=== PATIENT | male | born 1945 | race Caucasian/White ===

== ENCOUNTER → 2018-06-02 13:08 | Outpatient (BNVA) | payer MEDICARE, SELFPAY | PROVIDERS: PCP Family Medicine; Visit Provider Internal Medicine Interventional Cardiology | DX: I25.810 Atherosclerosis of coronary artery bypass graft(s) without angina pectoris (principal); I48.92 Unspecified atrial flutter; R00.1 Bradycardia, unspecified; G47.30 Sleep apnea, unspecified; I42.9 Cardiomyopathy, unspecified; I49.3 Ventricular premature depolarization; F17.210 Nicotine dependence, cigarettes, uncomplicated | CPT/HCPCS: 99213 ==

== ENCOUNTER 2018-10-27 08:23 | Outpatient (CLI) | payer MEDICARE, SELFPAY | END 2018-10-27 08:43 | PROVIDERS: PCP Family Medicine; Visit Provider Internal Medicine Interventional Cardiology | DX: I25.810 Atherosclerosis of coronary artery bypass graft(s) without angina pectoris (principal); I48.92 Unspecified atrial flutter; R00.1 Bradycardia, unspecified; I42.9 Cardiomyopathy, unspecified; I49.3 Ventricular premature depolarization; G47.30 Sleep apnea, unspecified | CPT/HCPCS: 99214; 93005; 93010; 99213 ==

== ENCOUNTER 2018-12-10 10:48 | Outpatient (CLI) | payer MEDICARE, SELFPAY ==
--- NOTE | 2018-12-10 11:08 | DI.RAD_ITS ---
SYMPTOMS/DIAGNOSIS: CHRONIC JESSE RIB PAIN, PLEURODYNIA, R07.81 PA AND LATERAL CHEST AND BILATERAL RIBS: A median sternotomy is demonstrated in this patient who is status post CABG. The heart is not enlarged. The lungs are free of infiltrate. There is no pleural effusion. The hilar structures are intact. Atherosclerotic changes involving the aorta are noted. A right and left rib series was obtained. No rib abnormality is apparent.
[2018-12-10 13:19] LABS: CREATININE 1.06 mg/dL (0.70-1.30); Potassium 5.1 mmol/L (3.5-5.1); TSH (W/Ref FT4) 3.16 uIU/mL (0.358-3.74)
== END 2018-12-10 11:08 ==
PROVIDERS: PCP Family Medicine; Visit Provider Family Medicine
DX: R07.81 Pleurodynia (principal); Z95.1 Presence of aortocoronary bypass graft; I10 Essential (primary) hypertension; R79.89 Other specified abnormal findings of blood chemistry
CPT/HCPCS: 36415; 71046; 71110; 82565; 84132; 84443

== ENCOUNTER 2019-05-11 08:12 | Outpatient (CLI) | payer MEDICARE, SELFPAY | END 2019-05-11 08:32 | PROVIDERS: PCP Family Medicine; Visit Provider Internal Medicine Interventional Cardiology | DX: I25.10 Atherosclerotic heart disease of native coronary artery without angina pectoris (principal); I48.92 Unspecified atrial flutter; F17.210 Nicotine dependence, cigarettes, uncomplicated; R00.1 Bradycardia, unspecified; G47.30 Sleep apnea, unspecified; I42.9 Cardiomyopathy, unspecified | CPT/HCPCS: 93005; 93010; 99213 ==

== ENCOUNTER 2019-07-01 08:41 | Emergency (ER) | payer MEDICARE, SELFPAY ==
[2019-07-01 08:46] VITALS: BP 107/94; PULSE 72; RESP 14; TEMP 36.2; O2SAT 95
--- NOTE | 2019-07-01 09:08 | ED.GENADUL_ITS ---
Discharge Plan Disposition Patient Disposition: HOME Condition: Good Discharge Details Chief Complaint: Urinary Clinical Impression: Acute UTI, Hematuria Primary Care Provider: Real Horn ED Provider: Maritza Smiht Home Meds and New Rx's Prescriptions: New cephalexin [Keflex] 500 mg capsule 500 mg PO QID Qty: 28 RF: 0 No Action aspirin 81 mg tablet,delayed release (DR/EC) 81 mg PO DAILY RF: 0 benzonatate [Tessalon Perles] 100 mg capsule 100 mg PO TID PRN (Reason: cough) Qty: 30 RF: 0 rosuvastatin [Crestor] 40 mg tablet 40 mg PO QPM Qty: 90 RF: 4 finasteride 5 mg tablet 5 mg PO DAILY Qty: 90 RF: 3 Eliquis 5 mg tablet 5 mg PO bid Qty: 180 RF: 3 tamsulosin 0.4 mg capsule 0.4 mg PO DAILY Qty: 90 RF: 3 bisoprolol fumarate 5 mg tablet 1.25 mg PO DAILY Qty: 24 RF: 3 lisinopril 10 MG tablet 10 mg PO DAILY Qty: 90 RF: 4 coenzyme Q10 [Co Q-10] 100 MG capsule 100 mg PO DAILY RF: 0 Discharge Instructions Instructions: Urinary Tract Infection in Men (ED), Hematuria (ED) Additional Instructions: Drink plenty of fluids. Use antibiotic as prescribed. Continue your current daily medications. Observe for any increase in or persistence of blood in your urine. Follow-up promptly with your primary care doctor as well as with urology as discussed. Return to the emergency room for any weakness, fatigue, increased in blood in your urine or any association with abdominal or back pain as discussed. Medical Decision Making 73-year-old patient presents for painless hematuria. Patient reports hematuria has improved since onset at 6 AM. No associated blood clots in the urine. Feeling well otherwise. No associated systemic symptoms. No abdominal pain on exam. Patient's urinalysis does reveal elevated white blood cells as well as trace leukocyte esterase and blood. Concern for possible UTI. I have explained to this patient the painless hematuria at his age will require additional outpatient follow-up however at this time he feels comfortable with discharge home with a course of antibiotics and close follow-up with urology and his PCP. PCP was unable to see the patient this morning which is why came to the emerg ency room. Vital signs are stable. Patient would prefer outpatient follow-up at this time which I agree with. He is well-appearing. The patient was stable and requested discharge. Prior to discharge, my usual and customary return precautions were reviewed with the patient - this included follow-up instructions and reasons to return to the Emergency Department if conditions worsens, does not improve as expected, or other new concerns arise. HPI General Date/Time Provider Initiated Documentation: 07/01/19 08:46 . HPI Narrative: Is a pleasant 73-year-old patient who presents to the emergency room this morning for an episode of hematuria at approximately 6:00. Patient reports he denied any abdominal or back pain associated. Reports he went to the bathroom noted blood-tinged urine. Tried drinking some water as he does not routinely drink water and reports his urine has somewhat cleared although has had more frequent urination since drinking water. Again patient denies abdominal or back pain. No associated fever, chills, nausea, vomiting. He has been eating and drinking without difficulty. No changes in bowel movements. No history of hematuria in the past. Patient does take a blood thinner for cardiac reasons. No other recent sites of bleeding Related Data Home Medications Medication Instructions Recorded Confirmed coenzyme Q10 [Co Q-10] 100 mg PO DAILY 01/18/15 07/01/19 lisinopril 10 mg PO DAILY #90 01/18/15 07/01/19 rosuvastatin 40 mg tablet 40 mg PO QPM #90 05/13/18 07/01/19 aspirin 81 mg tablet,delayed 81 mg PO DAILY 12/10/18 07/01/19 release finasteride 5 mg tablet 5 mg PO DAILY #90 tab-cap 12/18/18 07/01/19 apixaban 5 mg tablet 5 mg PO bid #180 tab 01/13/19 07/01/19 tamsulosin 0.4 mg capsule 0.4 mg PO DAILY #90 cap 03/12/19 07/01/19 bisoprolol fumarate 5 mg tablet 1.25 mg PO DAILY #24 tab-cap 04/01/19 07/01/19 benzonatate 100 mg capsule 100 mg PO TID PRN #30 cap 06/04/19 07/01/19 cephalexin [Keflex] 500 mg PO QID #28 cap 07/01/19 Previous Rx's Medication Instructions Recorded rosuvastatin 40 mg tablet 40 mg PO QPM #90 05/13/18 finasteride 5 mg tablet 5 mg PO DAILY #90 tab-cap 12/18/18 apixaban 5 mg tablet 5 mg PO bid #180 tab 01/13/19 tamsulosin 0.4 mg capsule 0.4 mg PO DAILY #90 cap 03/12/19 bisoprolol fumarate 5 mg tablet 1.25 mg PO DAILY #24 tab-cap 04/01/19 benzonatate 100 mg capsule 100 mg PO TID PRN #30 cap 06/04/19 cephalexin [Keflex] 500 mg PO QID #28 cap 07/01/19 Allergies Allergy/AdvReac Type Severity Reaction Status Date / Time codeine AdvReac Intermediate Headache Unverified 07/01/19 08:50 ezetimibe [From Zetia] AdvReac Intermediate myalgia Unverified 07/01/19 08:50 General Stated Complaint: Urinary EDWAR: 3 Review of Systems All systems reviewed & are unremarkable except as noted in HPI and below Constitutional Constitutional: Denies chills, Denies fatigue, Denies fever(s), Denies headache(s) and Denies malaise ENT Ears, Nose, Mouth, and Throat: Denies headache(s) Gastrointestinal Gastrointestinal: Denies abdominal pain, Denies change in stool character, Denies constipation, Denies cramping, Denies diarrhea, Denies nausea and Denies vomiting Genitourinary Genitourinary: Reports hematuria, Denies difficulty urinating, Denies dysuria, Denies urinary hesitancy and Denies urinary urgency Musculoskeletal Musculoskeletal: Denies back pain Neurologic Neurologic: Denies headache(s) Endocrine Endocrine: Denies fatigue [facility] Medical History Insomnia (Acute) Surgical History Appendectomy Circumcision (10/27/97) Coronary Artery Bypass Gaft (CABG) (08/20/89) Extraction of cataract 12/15/13-LEFT Repair of inguinal hernia (05/06/08) B/L Stent placement Family History Mother Personal history of malignant neoplasm Father Stroke Sister Personal history of malignant neoplasm Brother No problems noted. Social History Smoking/Tobacco Use Status: Current every day Tobacco Type: cigarettes Smoking packs per day: 2 Smoking cigarettes per day: 40.0 Years smoked: 45 Smoking pack- years: 90.00 Quit status: not considering quitting Counseling given: patient declined Alcohol Intake: never Drug use: Never Substance use type: does not use Do you feel safe at home: Yes Do you feel safe in your relationship?: Yes Exam Narrative Exam Narrative: CONST: Healthy appearing patient, in no acute distress. Well hydrated. Alert and alert. NECK: Normal visual inspection. FROM. No lymphadenopathy. Trachea midline. No Midline tenderness. CHEST: Normal insepection of the chest. RESP: Normal respiratory effort. Speaking full sentences. No cough. No wheezing. No retractions. Clear to auscaltation. Breath sound equal and present bilaterally. CARDIO: No JVD. Normal PMI. Regular Rate. Regular Rhythm. Normal peripheral pulses. GI: Normal inspection of abdomen. No distension. Soft. Nontender. Bowel sounds present in all 4 quadrants. No rebound. No gaurding. Back: No CVA tenderness bilaterally. Course Vital Signs Vital signs: Vital Signs Temperature 36.2 C L 07/01/19 08:46 Pulse 72 07/01/19 08:46 Respiratory Rate 14 07/01/19 08:46 Blood Pressure 107/94 H 07/01/19 08:46 Pulse Oximetry 95 07/01/19 08:46 Temperature 36.2 C L 07/01/19 08:46 Temperature Source Temporal Artery Scan 07/01/19 08:46 Pulse 72 07/01/19 08:46 Respiratory Rate 14 07/01/19 08:46 Respiratory Effort Non-Labored 07/01/19 08:48 Blood Pressure 107/94 H 07/01/19 08:46 Blood Pressure Position Sitting 07/01/19 08:46 Pulse Oximetry 95 07/01/19 08:46 Oxygen Delivery Method Room Air 07/01/19 08:46 Oxygen Flow Rate 0 07/01/19 08:46 Pain Level 0 07/01/19 08:49
[2019-07-01 09:22] LABS: Bilirubin Negative (Negative); Blood Large (Negative); Clarity Sl Cloudy (Clear); Glucose Negative (Negative); Ketones Negative (Negative); Leukocyte Esterase Small (Negative); Nitrite Negative (Negative); Specific Gravity <= 1.005 (1.005-1.025); Urobilinogen 0.2 EU/dL (Up TO 0.2); pH 5.5 (5-8)
[2019-07-01 09:37] LABS: Bacteria Negative HPF (Negative); C & S Indicated? Yes; Casts Negative LPF (Negative); Crystals Negative HPF (Negative); Epithelial Cells Rare HPF (Negative); Mucus Negative (Negative); WBC >50 HPF (0-5)
[2019-07-01 10:32] LABS: Abs Immature Grans 0.01 k/cumm (0.0-0.09); Absolute Basophil Count 0.02 k/cumm (0.0-0.2); Absolute Eosinophil Count 0.06 k/cumm (0.0-0.7); Absolute Lymphocyte Count 1.58 k/cumm (1.2-3.4); Absolute Monocyte Count 0.78 k/cumm (0.11-0.7); Absolute Neutrophil Count 7.09 k/cumm (1.2-6.7); Basophils % 0.2; Eosinophils % 0.6; HCT 42.2 % (40.0-50.0); HGB 14.4 g/dL (13.5-17.5); Immature Grans % 0.1; Lymphocytes % 16.6; Mean Corp. HGB Concentration 34.1 g/dL (32.0-36.0); Mean Corpuscular Hemoglobin 34.5 pg (27.0-33.0); Mean Corpuscular Volume 101.2 fL (80-95); Mean Platelet Volume 9.1 fL (8.0-11.0); Monocytes % 8.2; Neutrophils % 74.3; Platelet Count 190 x1000/uL (130-400); RBC 4.17 m/cumm (4.50-6.00); RBC Distribution Width 14.1 % (11.8-14.1); White Blood Cell Count 9.54 k/cumm (4.4-10.8)
[2019-07-01 10:42] LABS: ALT 16 U/L (16-63); AST 15 U/L (15-37); Albumin 3.5 g/dL (3.4-5.0); Alkaline Phosphatase 59 U/L (46-116); Anion Gap 7.9 mmol/L (3-11); BUN 20 mg/dL (7-18); Bilirubin, Total 0.5 mg/dL (0.2-1.0); CO2 27.1 mmol/L (21.0-32.0); CREATININE 1.24 mg/dL (0.70-1.30); Chloride 104 mmol/L (98-107); Estimated GFR 57.14 (mL/min/1.73m2); Glucose 87 mg/dL (70-100); Potassium 4.5 mmol/L (3.5-5.1); Sodium 139 mmol/L (136-145); Total Protein 7.6 g/dL (6.4-8.2)
[2019-07-01 10:56] LABS: INR 1.2 (0.9-1.1); PTT Activated 36.1 sec (21.0-31.4); Prothrombin Time 11.6 sec (9.3-11.0)
[2019-07-01 11:21] VITALS: BP 119/66; PULSE 54; O2SAT 94
--- NOTE | 2019-07-01 14:26 | NUR.NOTE ---
Referral faxed to specialty clinic, Urology.Nursing Note:
== END 2019-07-01 11:30 | disposition home or self-care (01) ==
PROVIDERS: Emergency Provider Physician Assistant; PCP Family Medicine
DX: N39.0 Urinary tract infection, site not specified (principal); R31.9 Hematuria, unspecified; Z95.1 Presence of aortocoronary bypass graft
CPT/HCPCS: 36415; 80053; 99283; 81003; 81015; 85025; 85610; 85730; 87086

== ENCOUNTER 2019-07-08 00:40 | Outpatient (CLI) | payer MEDICARE, SELFPAY ==
--- NOTE | 2019-07-08 07:59 | DI.CT_ITS ---
EXAM: CT ABDOMEN AND PELVIS WO/W CLINICAL HISTORY: HEMATURIA,R31.9 TECHNIQUE: Images were performed from the lung bases through the ischial tuberosities before and aft er IV contrast. Delayed images were performed at 7 minutes. COMPARISON: CHEST FOR PULMONARY EMBOLUS from 11/26/2016 RENAL ULTRASOUND(P) from 12/03/2016 CHEST FOR PULMONARY EMBOLUS from 09/13/2017 FINDINGS: The noncontrast images show no evidence of urinary tract calculi. Renal arterial calcifications are seen. The aorta shows calcification and irregularity with mild dilatation in the infrarenal region, which is 2.6 cm. The aorta appears narrow distally. The proximal iliac arteries also show severe na rrowing. After IV contrast, there are symmetric bilateral nephrograms. A 2.5 centimeter cyst is see n at the upper pole of the left kidney. A 2.2 centimeter cyst is seen posteriorly in the upper to mi d left kidney. No renal masses are seen. The prostate is enlarged and impresses on the base of the bladder. Prostate measures 4.3 cm transverse x 4.1 cm cephalocaudad x 3.5 cm AP. There is mild diff use bladder wall thickening. The 2-[id number] images show symmetric pyelograms. No collecting s ystem filling defects are seen. A small low-density lesion is seen in the anterior left lobe of the liver, which appears unchanged wh en compared with previous CT of the of the chest. The gallbladder, spleen, adrenals and pancreas are unremarkable. There is prominent sigmoid diverticulosis but no evidence of diverticulitis. Increas ed stool is seen throughout the colon. There is no small bowel distension. Degenerative changes are seen in the lumbar spine. IMPRESSION: Left renal cysts. No evidence of renal mass. Enlarged prostate and mild diffuse bladder wall thicke prashanth. Atherosclerotic changes of the abdominal aorta.
[2019-07-08] MEDS: Omnipaque 350 MG/ML 100 ML BTL IJ (08:56)
== END 2019-07-08 01:00 ==
PROVIDERS: PCP Family Medicine; Visit Provider Nurse Practitioner
DX: R31.9 Hematuria, unspecified (principal); N28.1 Cyst of kidney, acquired; N40.0 Benign prostatic hyperplasia without lower urinary tract symptoms; N32.89 Other specified disorders of bladder
CPT/HCPCS: 74178; J3490

== ENCOUNTER → 2019-07-09 12:25 | Outpatient (BNVA) | payer MEDICARE, SELFPAY | PROVIDERS: PCP Family Medicine; Referring Provider Family Medicine; Visit Provider Nurse Practitioner Gerontology | DX: R69 Illness, unspecified (principal) ==

== ENCOUNTER 2019-07-09 13:57 | Outpatient (CLI) | payer MEDICARE, SELFPAY ==
[2019-07-10 11:57] LABS: PSA, Screening 1.6 ng/mL (0.0-6.5)
== END 2019-07-09 14:17 ==
PROVIDERS: PCP Family Medicine; Visit Provider Nurse Practitioner Gerontology
DX: N40.1 Benign prostatic hyperplasia with lower urinary tract symptoms (principal); R35.1 Nocturia; Z12.5 Encounter for screening for malignant neoplasm of prostate
CPT/HCPCS: 36415; 81003; 84153; 99204; 99215

== ENCOUNTER 2019-08-03 09:41 | Day surgery (SDC) | payer MEDICARE, SELFPAY ==
--- NOTE | 2019-07-31 08:38 | DSU.FORM ---
07/31/19 Per patient he was called by office and told to hold Eliquis on 08/02 19 and resume the night of procedure.
--- NOTE | 2019-08-03 09:44 | HPE_ITS ---
Date of service: 08/03/19 Time of Service: 09:44 Assessment and Plan Assessment and plan (1) Hematuria: Status: Acute Assessment and plan: We will move ahead with cystoscopy to complete his hematuria workup. Given his history of urethral stricture/meatal stenosis, we will be prepared to dilate the urethra if necessary. History of Present Illness Narrative: Teo is a 73-year-old male referred to urology for painless gross hematuria by the emergency room. Patient was seen in the emergency room approximately 1 week ago and noted to have 10-20 RBC. Patient states he noted gross hematuria that resolved after he push fluids. He did not have clots or any retention. Patient does have an extensive urology history for an urethral stricture. He has previously seen [facility], and here by Dr. Espana. Patient notes that his urinary stream still will have a dribble and split stream since any of his urethral dilations. He does not want to go to the process again. Currently his LUTS include frequency, urgency, nocturia, and dribbling. He questions if he has recently lost weight. He denies long bone pain he denies abnormal bleeding or bruising. He is an extensive smoker with a history of approximately 40 years at 2 packs/day. PMH Hematuria BPH Insomnia Tobacco abuser Tubular adenoma Systolic heart failure Sinus bradycardia Urethral stricture Coronary atherosclerosis SX Appendectomy Circumcision Urethral meatus stricture dilation CABG Cataracts Hernia Social Current smoker Denies alcohol Allergies Reviewed elsewhere in the chart Medications Reviewed elsewhere in the chart Family Hx His half brother has prostate cancer Review of Systems Const: Reports weight loss; Denies chills, fatigue or fever(s) Card: Denies chest pain or dyspnea Resp: Denies dyspnea GI: Denies abdominal pain, constipation or diarrhea : Reports hematuria, urinary frequency, urinary hesitancy and urinary urgency; Denies dysuria, flank pain, nocturia or urinary incontinence Endo: Denies fatigue Exam Const Orientation: alert, awake and oriented x3 Other: VS reviewed that were done by nurse Eyes Sclera: sclerae normal Resp Effort & Inspection: normal respiratory effort GI Inspection: normal to inspection and non-distended Palpation: soft and nontender Rectal Exam: prostate abnormal enlarged; no nodules and nontender Extrem General: full [facility] Social History Smoking/Tobacco Use Status: Current every day Tobacco Type: cigarettes Smoking packs per day: 2 Smoking cigarettes per day: 40.0 Years smoked: 45 Smoking pack- years: 90.00 Quit status: not considering quitting Counseling given: patient declined Alcohol Intake: current Alcohol Intake frequency: a few times a month Alcohol type: beer Drug use: Never Substance use type: does not use Do you feel safe at home: Yes Do you feel safe in your relationship?: Yes Meds Home Medications and Allergies Home Medications Medication Instructions Recorded Confirmed Type coenzyme Q10 [Co Q-10] 100 mg PO DAILY 01/18/15 07/30/19 History lisinopril 10 mg PO DAILY #90 01/18/15 07/30/19 History rosuvastatin 40 mg tablet 40 mg PO QPM #90 05/13/18 07/30/19 Rx aspirin 81 mg tablet,delayed 81 mg PO DAILY 12/10/18 07/30/19 History release apixaban 5 mg tablet 5 mg PO bid #180 tab 01/13/19 07/30/19 Rx bisoprolol fumarate 5 mg tablet 1.25 mg PO DAILY #24 tab-cap 04/01/19 07/30/19 Rx cephalexin [Keflex] 500 mg PO QID #28 cap 07/01/19 07/03/19 Rx finasteride 5 mg PO HS 07/31/19 07/31/19 History tamsulosin 0.8 mg PO HS 07/31/19 07/31/19 History Allergies Allergy/AdvReac Type Severity Reaction Status Date / Time codeine AdvReac Intermediate Headache Unverified 07/30/19 17:28 ezetimibe [From Zetia] AdvReac Intermediate myalgia Unverified 07/30/19 17:28 Exam Narrative Exam Narrative: His lungs are clear Cardiac exam shows a regular rate and rhythm I reviewed his CT urogram on the PACS system. He has simple renal cysts and vascular calcifications, but no sign of solid renal mass or urolithiasis.
[2019-08-03 10:16] VITALS: BP 110/63; PULSE 57; RESP 17; TEMP 36.5; O2SAT 96
[2019-08-03] MEDS: Lactated Ringers 1,000 ML 80 ML IV (11:17)
[2019-08-03] MEDS: ceFAZolin 1 GM/50 ML BAG IVPB (11:21)
[2019-08-03] MEDS: Lidocaine 2% Jelly 6 ML SYR (11:33)
--- NOTE | 2019-08-03 11:42 | W.PM.DSUDISC ---
Discharge Plan Disposition Patient Disposition: HOME Condition: Stable Discharge Details Attending Provider: Bryce Espana Primary Care Provider: Real Horn Home Meds and New Rx's Prescriptions: No Action aspirin 81 mg tablet,delayed release (DR/EC) 81 mg PO DAILY RF: 0 rosuvastatin [Crestor] 40 mg tablet 40 mg PO QPM Qty: 90 RF: 4 Eliquis 5 mg tablet 5 mg PO bid Qty: 180 RF: 3 bisoprolol fumarate 5 mg tablet 1.25 mg PO DAILY Qty: 24 RF: 3 lisinopril 10 MG tablet 10 mg PO DAILY Qty: 90 RF: 4 coenzyme Q10 [Co Q-10] 100 MG capsule 100 mg PO DAILY RF: 0 cephalexin [Keflex] 500 mg capsule 500 mg PO QID Qty: 28 RF: 0 tamsulosin 0.4 mg capsule 0.8 mg PO HS RF: 0 finasteride 5 mg tablet 5 mg PO HS RF: 0 Discharge Instructions Additional Instructions: Followup yearly for urinalysis Activity:: Activity as Tolerated Shower/Bathe:: 24 hours Diet:: As Tolerated Discharge Orders Discharge Orders: Discharge Order (Routine); Ordered 08/03/19 Ordered By: Bryce Espana Discharge Data Discharge Comment: Pt must void prior to discharge DS: Diagnosis Discharge Diagnosis (1) Hematuria: Status: Acute
[2019-08-03] MEDS: Phenazopyridine 200 MG TAB PO (12:25)
[2019-08-03 13:10] VITALS: BP 109/64; PULSE 49; RESP 17; TEMP 36.2; O2SAT 100
--- NOTE | 2019-08-03 14:30 | ROE_ITS ---
DATE OF PROCEDURE: August 03, 2019 PREOPERATIVE DIAGNOSIS: Gross hematuria. POSTOPERATIVE DIAGNOSIS: Same. PROCEDURE: Cystoscopy. SURGEON: Bryce Espana M.D. ANESTHESIA: Room air general anesthetic with local. COMPLICATIONS: None. FINDINGS: No evidence of bladder tumor, vascular enlarged prostate. HISTORY: This is a 73-year-old gentleman who has a history of urethral stricture disease. He's had multiple dilations in the past. He most recently experienced an episode of gross, painless hematuria. When he increased his fluid intake the hematuria resolved and has not recurred. He's been evaluated with a CT urogram which shows some simple cysts in the kidneys, but no solid jesse l masses and no stones. He presents now for a cystoscopy to complete his hematuria workup. OPERATIVE REPORT: The patient was brought to the operating room on 08/03/19. After successful induc tion of general anesthesia, he was placed in the dorsal lithotomy position. His genitalia was preppe d and draped. 2% Xylocaine jelly was instilled into the urethra to act as a local anesthetic. A 17 Yi rigid cystoscope was then passed through the urethra into the bladder. There was some re sistance met right at the urethral meatus, which is the location of his previous urethral strictures. We were able to negotiate the scope through this area and down the remainder of the ureter. The remainder of the pendulous, bulbous and membranous urethras appeared normal. The prostatic ureth ra showed increased vascularity and some lateral lobe enlargement, but no active bleeding. The bladder neck was entered and the bladder mucosa was inspected. Both ureteral orifices appeared n ormal. No blood was seen coming from either side. The bladder was mildly trabeculated with no papillary or nodular tumors present. Based on today's examination there is no evidence of bladder pathology. I would expect that his blee ding is related to his vascular prostate. He's already on maximal medical therapy with a combination of Finasteride and Tamsulosin. If his hem aturia returns, his next option may be a fulguration of the prostatic mucosa.
== END 2019-08-03 13:06 | disposition home or self-care (01) ==
PROVIDERS: PCP Family Medicine; Visit Provider Urology
PROC: 0TBB8ZZ Excision of Bladder, Via Natural or Artificial Opening Endoscopic (ICD-10-PCS; CPT 52000; principal; 2019-08-03 10:45)
DX: R31.9 Hematuria, unspecified (principal); N40.0 Benign prostatic hyperplasia without lower urinary tract symptoms; N32.89 Other specified disorders of bladder
CPT/HCPCS: 52000; NC; J0690; J2250; J3010

== ENCOUNTER → 2019-09-09 15:22 | Outpatient (BNVA) | payer MEDICARE, SELFPAY | PROVIDERS: PCP Family Medicine; Referring Provider Family Medicine; Visit Provider Nurse Practitioner Gerontology | DX: R31.9 Hematuria, unspecified (principal); N40.1 Benign prostatic hyperplasia with lower urinary tract symptoms; R35.1 Nocturia | CPT/HCPCS: 99213 ==

== ENCOUNTER 2020-01-25 02:16 | Outpatient (CLI) | payer MEDICARE, SELFPAY ==
--- NOTE | 2020-01-25 12:45 | DI.CTLCSR_ITS ---
EXAM: CT CHEST LUNG CANCER SCREEN CLINICAL HISTORY: The patient reportedly has a History of Smoking 30 pack years and presently smokes or has quit the past 15 years. TECHNIQUE: Imaging Protocol: Axial computed tomography images with coronal and sagittal reformatted images were created and reviewed COMPARISON: CT CHEST FOR PULMONARY EMBOLUS from 09/13/2017 FINDINGS: Tracheobronchial tree: Patent where visualized. Mediastinum and Dahlia: No dominant adenopathy or fluid collection. Pulmonary parenchyma: Paraseptal and centrilobular emphysema. No consolidating infiltrates. Lung Nodules: None. Pleura: No effusion or pneumothorax. Heart: The heart is not dilated. Coronary artery calcifications versus vascular stents. No significa nt pericardial effusion. Aorta: Thoracic aorta non-dilated.Atherosclerosis. Upper abdomen: Unremarkable. Bones: Within normal limits for the patient's age. Sternal wires are in place. Soft Tissues: Bilateral gynecomastia. IMPRESSION: No pulmonary nodules. Lung RADS Cat 1 - Negative: No nodules and definitely benign nodules Lung-RADS 1.0 CATEGORIES: Category 0 - Prior chest CT exam(s) being located for comparison. Category 1 - Annual screening in 12 months. No nodules or definitely benign nodules. Category 2 - Annual screening in 12 months. Benign appearance. Nodules with low likelihood of becomin g active cancer. Category 3 - 6-month follow-up. Probably benign. Short-term follow-up suggested. Nodules with low lik elihood of becoming active cancer. Category 4A - 3-month follow-up and CT/PET if >8 mm in size. Suspicious finding. Findings which requi re additional testing. Category 4B - Findings which require additional testing and tissue sampling. Suspicious finding. C Added to Any of the Above - History of prior lung cancer screening. S Added to Any of the Above - Significant unexpected other finding. RADIATION DOSE DELIVERED: 86.66mGy.cm Total DLP DATA REPOSITORY: All CT scans at this facility are submitted to the National Radiology Data Registry (NRDR) Dose Index Registry (DIR) with the [employer] (ACR). RADIATION OPTIMIZATION: All CT scans at this facility use at least one of these dose optimization te chniques: automated exposure control; mA and/or kV adjustment per patient size (includes targeted exa ms where dose is matched to clinical indication); or iterative reconstruction.
== END 2020-01-25 02:36 ==
PROVIDERS: PCP Family Medicine; Visit Provider Family Medicine
DX: Z12.2 Encounter for screening for malignant neoplasm of respiratory organs (principal); Z87.891 Personal history of nicotine dependence; J43.8 Other emphysema
CPT/HCPCS: G0297

== ENCOUNTER → 2020-09-12 12:41 | Outpatient (BNVA) | payer MEDICARE, SELFPAY | PROVIDERS: PCP Family Medicine; Referring Provider Family Medicine; Visit Provider Nurse Practitioner Gerontology | DX: N40.1 Benign prostatic hyperplasia with lower urinary tract symptoms (principal); R35.1 Nocturia; R31.9 Hematuria, unspecified | CPT/HCPCS: 81003; 99213 ==

== ENCOUNTER 2020-11-30 08:43 | Outpatient (CLI) | payer MEDICARE, SELFPAY ==
[2020-11-30 12:29] LABS: HCT 43.8 % (40.0-50.0); HGB 14.7 g/dL (13.5-17.5); MCH 34.9 pg (27.0-33.0); MCHC 33.6 % (32.0-36.0); MPV 9.6 fL (8.0-11.0); Platelet Count 167 10^3/uL (130-400); RBC 4.21 10^6/uL (4.36-5.78); RDW 13.1 % (11.8-14.1); RDW-SD 50.3 fL; WBC 6.89 10^3/uL (4.4-10.8)
[2020-11-30 12:45] LABS: BUN 27 mg/dL (7-18); CREATININE 1.2 mg/dL (0.70-1.30); Calcium 8.8 mg/dL (8.5-10.1); Glucose 97 mg/dL (74-106)
[2020-11-30 12:46] LABS: Anion Gap 8.9 mmol/L (3-11); CO2 26.1 mmol/L (21.0-32.0); Calculated LDL 60 mg/dL (<100); Chloride 105 mmol/L (98-107); Cholesterol 124 mg/dL (<200); Estimated GFR 59.18 (mL/min/1.73m2); HDL Cholesterol 51 mg/dL (40-60); Potassium 4.5 mmol/L (3.5-5.1); Sodium 140 mmol/L (136-145); Triglyceride 69 mg/dL (<150)
== END 2020-11-30 08:44 | disposition home or self-care (01) ==
LOC: LOS 08:44
PROVIDERS: PCP Family Medicine; Referring Provider Family Medicine; Visit Provider Family Medicine
DX: D64.9 Anemia, unspecified (principal); E78.5 Hyperlipidemia, unspecified; E87.1 Hypo-osmolality and hyponatremia
CPT/HCPCS: 36415; 80048; 80061; 85027

== ENCOUNTER 2020-12-23 11:49 | Outpatient (CLI) | payer MEDICARE, SELFPAY ==
--- NOTE | 2021-01-13 08:30 | W.ZIOMONITOR ---
Date of service: 01/13/21 Time of Service: 08:30 14 Day Sterile Instrument Technician Referring Provider:: jorge Indications:: af Note: This is a 14-day monitor order for indication of arrhythmia. ?The patient was in atrial flutter for the entirety of the recording with an average heart rate of 56 bpm (33-113bpm). ?There was one episode of NSVT which lasted 4 beats and occasional PVCs. ?There were no pauses greater than 3 seconds and no evidence of high degree heart block. ?There were 2 patient triggered events associated with baseline atrial flutter
== END 2020-12-23 11:50 | disposition home or self-care (01) ==
LOC: LBN 12:01 → RT 12:03
PROVIDERS: PCP Family Medicine; Visit Provider Internal Medicine Interventional Cardiology
DX: I48.92 Unspecified atrial flutter (principal); I47.1 Supraventricular tachycardia; I49.3 Ventricular premature depolarization
CPT/HCPCS: 93246

== ENCOUNTER 2021-01-13 08:30 | Outpatient (CLI) | payer MEDICARE, SELFPAY | END 2021-01-13 08:31 | LOC: CARDO 01-23 14:49 | PROVIDERS: PCP Family Medicine; Referring Provider Internal Medicine Interventional Cardiology; Visit Provider Internal Medicine Cardiovascular Disease | DX: I48.92 Unspecified atrial flutter (principal); I47.1 Supraventricular tachycardia; I49.3 Ventricular premature depolarization | CPT/HCPCS: 93248 ==

== ENCOUNTER 2021-06-05 01:45 | Outpatient (CLI) | payer MEDICARE, SELFPAY ==
--- NOTE | 2021-06-05 14:41 | DI.RAD_ITS ---
Exam(s) XR SHOULDER RT COMPLETE 2+V EXAM: XR SHOULDER RT COMPLETE 2+V CLINICAL HISTORY: chronic rt shoulder pain.M25.511. TECHNIQUE: 2D digital imaging was performed. COMPARISON: No exams were available for comparison FINDINGS: There is no evidence of fracture nor dislocation no abnormal soft tissue calcifications. Some degene rative changes noted in the AC joint. Minimal if any significant degenerative changes in the glenohu meral joint. Bone density is age-appropriate. No osseous lesions. Incidentally noted are sternotom y wires. Also calcification within the carotid artery in the right-side of the neck indicating ather osclerotic involvement. IMPRESSION: DATA REPOSITORY: RADIATION DOSE DELIVERED:
== END 2021-06-05 02:05 ==
PROVIDERS: PCP Family Medicine; Visit Provider Family Medicine
DX: M25.511 Pain in right shoulder (principal); I65.21 Occlusion and stenosis of right carotid artery
CPT/HCPCS: 73030

== ENCOUNTER → 2021-09-19 13:09 | Outpatient (BNVA) | payer MEDICARE, SELFPAY | PROVIDERS: PCP Family Medicine; Referring Provider Family Medicine; Visit Provider Student in an Organized Health Care Education/Training Program | DX: M19.011 Primary osteoarthritis, right shoulder (principal); M75.21 Bicipital tendinitis, right shoulder; I10 Essential (primary) hypertension | CPT/HCPCS: 20610; 99203; 99213; J1030 ==

== ENCOUNTER 2022-04-13 18:10 | Outpatient (REF) | payer MEDICARE, SELFPAY | END 2022-04-13 18:11 | disposition home or self-care (01) | LOC: LBN 18:10 | PROVIDERS: PCP Family Medicine; Visit Provider Physician Assistant | DX: N39.0 Urinary tract infection, site not specified (principal) | CPT/HCPCS: 87077; 87086; 87186 ==

== ENCOUNTER 2022-07-23 08:17 | Outpatient (CLI) | payer MEDICARE, SELFPAY ==
--- NOTE | 2022-07-23 08:15 | RT.EKG_ITS ---
APPROVED REPORT Exam: Resting ECG Reason for Exam: CAD Patient Location: O HR:83 bpm ECG Measurements Heart Rate 83 AXIS TN [id number] P [id number] QRSd 127 QRS -87 QT 402 T 90 QTc 473 Conclusion Afib/flut and V-paced complexes...other complexes, A-rate>240 No further analysis attempted due to paced rhythm
== END 2022-07-23 08:18 | disposition home or self-care (01) ==
LOC: DI.CARD 08:18
PROVIDERS: PCP Family Medicine; Visit Provider Internal Medicine Cardiovascular Disease
DX: I25.10 Atherosclerotic heart disease of native coronary artery without angina pectoris (principal); R94.31 Abnormal electrocardiogram [ECG] [EKG]
CPT/HCPCS: 93010

== ENCOUNTER → 2022-07-23 10:57 | Outpatient (BNVA) | payer MEDICARE, SELFPAY | PROVIDERS: PCP Family Medicine; Referring Provider Family Medicine; Visit Provider Internal Medicine Cardiovascular Disease | DX: I25.10 Atherosclerotic heart disease of native coronary artery without angina pectoris (principal); I42.9 Cardiomyopathy, unspecified; I48.91 Unspecified atrial fibrillation; I48.92 Unspecified atrial flutter; Z95.0 Presence of cardiac pacemaker; Z95.1 Presence of aortocoronary bypass graft; Z79.01 Long term (current) use of anticoagulants | CPT/HCPCS: 93005; 99203; 99214 ==

== ENCOUNTER 2022-08-27 02:30 | Outpatient (CLI) | payer MEDICARE, SELFPAY ==
--- NOTE | 2022-08-27 07:15 | DI.RAD_ITS ---
Exam(s) XR RIBS LT W PA LAT CHEST CLINICAL HISTORY back pain, PAIN left ribs posterior,M54.9. COMPARISON: CR XR ribs BI include chest from 12/10/[address] CHEST LUNG CANCER SCREEN from 01/25/2020 TECHNIQUE:: PA and lateral views of the chest and four views of the left ribs were performed. FINDINGS: LUNGS: Hyperinflated. Clear. No pleural abnormality seen. HEART: Normal size. Status post CABG. Coronary artery stents. Pacemaker over left upper chest... MEDIASTINUM: Normal. BONES: Sternal wires. No displaced rib fracture is seen. No compression fractures are seen in the t horacic spine. Degenerative changes in the spine, typical for age. No bony destructive lesion is se en. OTHER FINDINGS: None. IMPRESSION: 1. Unremarkable radiographic appearance of the left ribs. 2. No acute pulmonary findings.
== END 2022-08-27 02:50 ==
PROVIDERS: PCP Family Medicine; Visit Provider Physician Assistant
DX: M54.9 Dorsalgia, unspecified (principal)
CPT/HCPCS: 71046; 71100

== ENCOUNTER → 2022-11-22 11:13 | Outpatient (BNVA) | payer MEDICARE, SELFPAY | PROVIDERS: PCP Family Medicine; Referring Provider Family Medicine; Visit Provider Internal Medicine Cardiovascular Disease | DX: I25.810 Atherosclerosis of coronary artery bypass graft(s) without angina pectoris (principal); Z95.0 Presence of cardiac pacemaker; I48.91 Unspecified atrial fibrillation; Z79.01 Long term (current) use of anticoagulants | CPT/HCPCS: 99214 ==

== ENCOUNTER → 2022-12-05 12:45 | Outpatient (BNVA) | payer MEDICARE, SELFPAY | PROVIDERS: PCP Family Medicine; Referring Provider Family Medicine; Visit Provider Physician Assistant | DX: Z46.89 Encounter for fitting and adjustment of other specified devices (principal); Z95.0 Presence of cardiac pacemaker; I48.91 Unspecified atrial fibrillation; Z79.01 Long term (current) use of anticoagulants; I42.9 Cardiomyopathy, unspecified | CPT/HCPCS: 93281; 99213 ==

== ENCOUNTER 2022-12-17 06:18 | Inpatient (IN) | payer MEDICARE, SELFPAY ==
[2022-12-17] VITALS (130 sets, daily range): BP systolic 86–137; BP diastolic 37–115; PULSE 54–119; RESP 12–47; TEMP 36.8–38.6; O2SAT 88–97
--- NOTE | 2022-12-17 06:00 | RT.EKG_ITS ---
APPROVED REPORT Exam: Resting ECG Reason for Exam: STEMI ALERT PER RESCUE Patient Location: E HR:84 bpm ECG Measurements Heart Rate 84 AXIS [place] 192 P 0 QRSd 116 QRS -90 QT 403 T 66 QTc 476 Conclusion Atrial-ventricular dual-paced rhythm Biventricular paced rhythm...non-simultaneous bi-vent pacing. AV paced. T wave inversion in V2. No other acute ischemic findings or changes noted compared to previ ous EKG. I have reviewed and interpreted ECG and agree with software generated interpretation.
--- NOTE | 2022-12-17 06:30 | DI.CT_ITS ---
Exam(s) CT CHEST PE ABD PELVIS W EXAM: CT CHEST PE ABD PELVIS W CLINICAL HISTORY: weak,chills,fever,r/o pneumonia/pe/acute abd. TECHNIQUE: Imaging Protocol: Axial CT angiography was performed with multi-slice acquisition and mu lti-planar and/or 3D reconstructions. CONTRAST MATERIAL: Intravenous: Omnipaque 350contrast volume:100 mL COMPARISON: CT CT ABDOMEN PELVIS WO/W from 07/08/2019 FINDINGS: CHEST: Tracheobronchial tree: Patent where visualized. Pulmonary parenchyma: Emphysematous changes are present. No focal consolidating infiltrates. Mild d ependent atelectasis. No architectural distortion. Pulmonary Arteries: No evidence of filling defect to suggest pulmonary emboli. Mediastinum and Dahlia: No dominant adenopathy or fluid collection. The esophagus is unremarkable. Ther e is a small hiatal hernia. Visualized thyroid gland: Unremarkable. Pleura: No effusion or pneumothorax. Heart: The heart is not dilated. Coronary artery calcifications and/or stents are present. No perica rdial effusion. Aorta: Thoracic aorta non-dilated. No evidence of dissection. Atherosclerosis. Bones: Within normal limits for the patient's age. Sternal wires are in place. Soft tissues: Unremarkable. Tubes, Catheters, and Lines: There is a cardiac pacing device in place. ABDOMEN: Liver: Normal density. There is an unchanged hypodensity in the periphery of the left lobe of the sheila er. No suspicious hepatic masses are seen. Portal, Superior Mesenteric, and Splenic Veins: Unremarkable. Gallbladder and Biliary Tract: No radiodense calculus or dilation. Pancreas: Normal density, no abnormal calcifications or inflammatory process. Spleen: Normal. Adrenals: No masses seen. Kidneys: Normal size, contour and axis. No radiodense stones or obstructive uropathy. Stable bilatera l renal cysts. No follow-up is recommended. Abdominal Aorta: There is an infrarenal abdominal aortic aneurysm measuring 3.3 transverse by 3.1 cm AP. This compares to 2.7 x 2.8 cm on the prior examination. Atherosclerosis is present. Bowel: There is diverticulosis of the colon but no evidence of acute diverticulitis. There is a mode rate amount of stool throughout the colon which may reflect constipation. There is no evidence of katie wel obstruction or bowel wall thickening. No evidence of an acute appendicitis. Peritoneal Cavity: No ascites, collection or mesenteric inflammatory response. No free air. Lymph Nodes: Within normal limits. Bones: Within normal limits for the patient's age. Soft Tissues: Unremarkable. Surgical clips are seen in the inguinal regions bilaterally. PELVIS: Bladder: Symmetric distention, no gross wall thickening. Reproductive Organs: Unremarkable as visualized. Lymph Nodes: Within normal limits. Bones: Within normal limits. IMPRESSION: 1. No evidence pulmonary embolism, thoracic aortic dissection or aneurysm. 2. No acute pulmonary process. 3. No acute abdominal or pelvic process. 4. 3.3 cm infrarenal abdominal aortic aneurysm. No complications are seen. 5. Findings were discussed with Dr. He at 8:26 a.m. on 12/17/2022. RADIATION DOSE DELIVERED: 831.25mGy.cm Total DLP DATA REPOSITORY: All CT scans at this facility are submitted to the National Radiology Data Registry (NRDR) Dose Index Registry (DIR) with the [employer] (ACR). RADIATION OPTIMIZATION: All CT scans at this facility use at least one of these dose optimization te chniques: automated exposure control; mA and/or kV adjustment per patient size (includes targeted exa ms where dose is matched to clinical indication); or iterative reconstruction.
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
[2022-12-17] MEDS: Normal Saline 500 ML IV ×2 (07:01→08:17)
[2022-12-17] MEDS: ACETAMINOPHEN 1,000 MG/100 ML BTL 400 MG IVPB (07:02)
[2022-12-17 07:03] LABS: Lactate 1.1 mmol/L (0.6-1.4)
[2022-12-17 07:04] LABS: Abs Immature Grans 0.16 10^3/uL (0.0-0.06); HCT 35.3 % (40.0-50.0); HGB 12.2 g/dL (13.5-17.5); MCH 35.4 pg (27.0-33.0); MCHC 34.6 % (32.0-36.0); MCV 102 fL (80-95); MPV 10.6 fL (8.0-11.0); Platelet Count 128 10^3/uL (130-400); RBC 3.45 10^6/uL (4.36-5.78); RDW-SD 52.6 fL; WBC 16.57 10^3/uL (4.4-10.8)
[2022-12-17 07:20] LABS: Absolute Lymphocyte Count 1.33 10^3/uL (1.2-3.4); Absolute Monocyte Count 1.82 10^3/uL (0.1-0.8); Absolute Neutrophil Count 13.42 10^3/uL (1.2-6.7); Atypical Lymphocytes % 0; Bands % 0
[2022-12-17 07:21] LABS: Diff Comment Manual Differential; RBC Morphology Normal
[2022-12-17 07:28] LABS: ALT 17 U/L (16-63); AST 26 U/L (15-37); Albumin 3.4 g/dL (3.4-5.0); Alkaline Phosphatase 52 U/L (46-116); Anion Gap 10.1 mmol/L (3-11); BUN 35 mg/dL (7-18); Bilirubin, Total 0.6 mg/dL (0.2-1.0); CO2 21.9 mmol/L (21.0-32.0); CREATININE 1.5 mg/dL (0.70-1.30); Calcium 8.5 mg/dL (8.5-10.1); Chloride 106 mmol/L (98-107); Estimated GFR 47.65 (mL/min/1.73m2); Glucose 118 mg/dL (74-106); Magnesium 1.5 mg/dL (1.8-2.4); Sodium 138 mmol/L (136-145); Total Protein 7.1 g/dL (6.4-8.2)
[2022-12-17 07:30] LABS: Troponin I 287 ng/L (<or=60)
[2022-12-17] MEDS: Omnipaque 350 MG/ML 100 ML BTL IJ (07:57)
[2022-12-17] MEDS: Normal Saline - Diluent 50 ML VIAL IJ (07:58)
[2022-12-17] MEDS: MAGNESIUM SULFATE 2 GM/50 ML BAG IVPB (07:58)
[2022-12-17 07:59] LABS: COVID-19 PCR Negative (Negative); Influenza A PCR Negative (Negative); Influenza B PCR Negative (Negative); RSV PCR Negative (Negative)
[2022-12-17 08:05] LABS: Source Nasopharynx
[2022-12-17 08:13] LABS: Bilirubin Negative (Negative); Blood Trace-lysed (Negative); Clarity Cloudy (Clear); Glucose Negative (Negative); Ketones Trace mg/dL (Negative); Leukocyte Esterase Negative (Negative); Nitrite Negative (Negative); Urobilinogen 0.2 mg/dL (Up to 0.2); pH 5.5 (5-8)
--- NOTE | 2022-12-17 08:14 | ED.PROG_ITS ---
Date of service: 12/17/22 Time of Service: 08:14 Medical Decision Making 800 -- I assumed care of this patient by Dr. Coley. Please see Dr. Coley's documentation regarding initial ED presentation course. Per signout discussion, Mr. Johnson is a 77-year-old male here with generalized weakness, chills this mor prashanth with fall. No concern for traumatic injury. EKG noted to be paced rhythm with no acute ischemia. Patient febrile with leukocytosis. Concern for acute infectious etiology and sepsis. Patient does have elevated initial troponin which is thought to be demand related in setting of history of coronary artery disease. Lactate, urinalysis, repeat troponin, and CT of the chest abdomen pelvis pending at time of signout. 1000 --urinalysis reviewed- consider UTI given bacteria and rare epithelial but only 3-[address] of the chest abdomen pelvis was interpreted by radiology: Negative for acute process. AAA noted 3.3 cm, this has increased in size from 2.[address] 2019. Patient unaware of AAA. Unclear source of infection at this point. Consider bacteremia and myocarditis. Patient has had recent left elbow infection over the past 1 month that has improved recently. His elbow currently has no signs of active infection. Delta trop pending. Patient's daughters here and note the patient does seem to have slurred speech from his baseline. Patient has full strength all extremities and no sensory deficits. Plan to obtain CT of the head. --CT of the head was interpreted by radiology: 1. No acute intracranial process.? 2. Findings were discussed with the emergency department at 10:30 a.m. on 12/17/2022. 1135 --I spoke with the hospitalist, discussed ED presentation course, he will admit the patient to the ICU. CK pending at time of admission. Lab Data Lab results reviewed: Yes I reviewed the patient's lab results. Labs: 12/17/22 08:03 Urine - Reflex from Ua Urine Culture - Pending 12/17/22 07:10 Blood Blood Culture - Pending 12/17/22 06:55 Blood Blood Culture - Pending Laboratory Tests Range/Units 12/17/22 12/17/22 12/17/22 06:55 06:55 06:55 WBC (4.4-10.8) 10^3/uL 16.57 H RBC (4.36-5.78) 10^6/uL 3.45 L Hgb (13.5-17.5) g/dL 12.2 L Hct (40.0-50.0) % 35.3 L MCV (80-95) fL 102 H MCH (27.0-33.0) pg 35.4 H MCHC (32.0-36.0) % 34.6 RDW (11.8-14.1) % 14.0 Plt Count (130-400) 10^3/uL 128 L MPV (8.0-11.0) fL 10.6 Immature Gran % 0.0 Neutrophils % 81.0 Band Neutrophils % 0 Lymphocytes % 8.0 Atypical Lymphs % 0 Monocytes % 11.0 Eosinophils % 0.0 Basophils % 0.0 Nucleated RBC % (0.0-0.3) % 0.0 Absolute Neutrophils (1.2-6.7) 10^3/uL 13.42 H Absolute Lymphocytes (1.2-3.4) 10^3/uL 1.33 Absolute Monocytes (0.1-0.8) 10^3/uL 1.82 H Absolute Eosinophils (0.0-0.7) 10^3/uL 0.00 Absolute Basophils (0.0-0.2) 10^3/uL 0.00 RBC Morphology Normal VBG Lactate (0.6-1.4) mmol/L 1.1 Sodium (136-145) mmol/L 138 Potassium (3.5-5.1) mmol/L 4.0 Chloride (98-107) mmol/L 106 Carbon Dioxide (21.0-32.0) mmol/L 21.9 Anion Gap (3-11) mmol/L 10.1 BUN (7-18) mg/dL 35 H Creatinine (0.70-1.30) mg/dL 1.5 H Est GFR (CKD-EPI 2020) (mL/min/1.73m2) 47.65 Glucose (74-106) mg/dL 118 H Calcium (8.5-10.1) mg/dL 8.5 Magnesium (1.8-2.4) mg/dL 1.5 L Total Bilirubin (0.2-1.0) mg/dL 0.6 AST (15-37) U/L 26 ALT (16-63) U/L 17 Alkaline Phosphatase (46-116) U/L 52 Troponin I (<or=60) ng/L 287 H* Total Protein (6.4-8.2) g/dL 7.1 Albumin (3.4-5.0) g/dL 3.4 Urine Color (Yellow) Urine Clarity (Clear) Urine pH (5-8) Ur Specific [employer] (1.005-1.025) Urine Protein (Negative) mg/dL Urine Ketones (Negative) mg/dL Urine Blood (Negative) Urine Nitrite (Negative) Urine Bilirubin (Negative) Urine Urobilinogen (Up to 0.2) mg/dL Ur Leukocyte Esterase (Negative) Urine RBC (0-2) HPF Urine WBC (0-5) HPF Ur Epithelial Cells (Negative) HPF Urine Crystals (Negative) HPF Urine Bacteria (Negative) HPF Urine Casts (Negative) LPF Urine Mucus (Negative) Urine Other (Negative) Ur Culture Indicated? Urine Glucose (Negative) mg/dL COVID-19 Source SARS-CoV-2 (PCR) (Negative) Influenza Type A (PCR) (Negative) Influenza Type B (PCR) (Negative) RSV (PCR) (Negative) Range/Units 12/17/22 12/17/22 12/17/22 06:55 08:03 09:37 WBC (4.4-10.8) 10^3/uL RBC (4.36-5.78) 10^6/uL Hgb (13.5-17.5) g/dL Hct (40.0-50.0) % MCV (80-95) fL MCH (27.0-33.0) pg MCHC (32.0-36.0) % RDW (11.8-14.1) % Plt Count (130-400) 10^3/uL MPV (8.0-11.0) fL Immature Gran % Neutrophils % Band Neutrophils % Lymphocytes % Atypical Lymphs % Monocytes % Eosinophils % Basophils % Nucleated RBC % (0.0-0.3) % Absolute Neutrophils (1.2-6.7) 10^3/uL Absolute Lymphocytes (1.2-3.4) 10^3/uL Absolute Monocytes (0.1-0.8) 10^3/uL Absolute Eosinophils (0.0-0.7) 10^3/uL Absolute Basophils (0.0-0.2) 10^3/uL RBC Morphology VBG Lactate (0.6-1.4) mmol/L Sodium (136-145) mmol/L Potassium (3.5-5.1) mmol/L Chloride (98-107) mmol/L Carbon Dioxide (21.0-32.0) mmol/L Anion Gap (3-11) mmol/L BUN (7-18) mg/dL Creatinine (0.70-1.30) mg/dL Est GFR (CKD-EPI 2020) (mL/min/1.73m2) Glucose (74-106) mg/dL Calcium (8.5-10.1) mg/dL Magnesium (1.8-2.4) mg/dL Total Bilirubin (0.2-1.0) mg/dL AST (15-37) U/L ALT (16-63) U/L Alkaline Phosphatase (46-116) U/L Troponin I (<or=60) ng/L 361 H* Total Protein (6.4-8.2) g/dL Albumin (3.4-5.0) g/dL Urine Color (Yellow) Yellow Urine Clarity (Clear) Cloudy Urine pH (5-8) 5.5 Ur Specific [employer] (1.005-1.025) 1.020 Urine Protein (Negative) mg/dL Negative Urine Ketones (Negative) mg/dL Trace H Urine Blood (Negative) Trace-lysed H Urine Nitrite (Negative) Negative Urine Bilirubin (Negative) Negative Urine Urobilinogen (Up to 0.2) mg/dL 0.2 Ur Leukocyte Esterase (Negative) Negative Urine RBC (0-2) HPF 3-5 H Urine WBC (0-5) HPF 3-5 Ur Epithelial Cells (Negative) HPF Rare Urine Crystals (Negative) HPF Moderate Amorphous Urine Bacteria (Negative) HPF Many Urine Casts (Negative) LPF Negative Urine Mucus (Negative) Negative Urine Other (Negative) Negative Ur Culture Indicated? Yes Urine Glucose (Negative) mg/dL Negative COVID-19 Source Nasopharynx SARS-CoV-2 (PCR) (Negative) Negative Influenza Type A (PCR) (Negative) Negative Influenza Type B (PCR) (Negative) Negative RSV (PCR) (Negative) Negative Sign Out Sign Out Data: Sign Out Comment: Chills, rigors and weakness overnight. Slip out of bed this morning due to weakness without injury. Rectal temp 100.4. Sergio had initially called a STEMI alert but EKG appears paced and not significantly different from old EKG July 2022. Troponin elevated to 287. Suspect this may be type II d emand ischemia in the setting of fever and likely infection. Follow-up on labs and imaging and final disposition. Last updated by Ashley Coley DO at 12/17/22 08:01 Discharge Plan Disposition Patient Disposition: Admit to [facility] Discharge Details Chief Complaint: Fall/Non TraumaCriteria Clinical Impression: Sepsis, Elevated troponin level Primary Care Provider: [facility] ED Provider: Artie He [place] Meds and New Rx's Prescriptions: No Action rosuvastatin [Crestor] 40 mg tablet 40 mg PO DAILY Qty: 90 4RF bisoprolol fumarate 5 mg tablet 5 mg PO DAILY Qty: 90 3RF aspirin 81 mg tablet,delayed release (DR/EC) 81 mg PO DAILY mupirocin 2 % ointment 1 applic topical TID Qty: 15 0RF fluticasone propionate 50 mcg/actuation spray,suspension 2 spray intranasal DAILY Qty: 9.9 5RF Rx Instructions: administer into each nostril finasteride 5 mg tablet 5 mg PO HS Qty: 90 3RF Eliquis 5 mg tablet 5 mg PO bid Qty: 180 3RF zolpidem 5 mg tablet 5 mg PO QHS PRN (Reason: sleep) Qty: 30 5RF lisinopril 10 mg tablet 10 mg PO DAILY 90 Days Qty: 90 3RF coenzyme Q10 [Co Q-10] 100 MG capsule 100 mg PO DAILY
[2022-12-17 08:20] LABS: Epithelial Cells Rare HPF (Negative)
[2022-12-17 08:21] LABS: Bacteria Many HPF (Negative); C & S Indicated? Yes; Casts Negative LPF (Negative); Crystals Moderate Amorphous HPF (Negative); Mucus Negative (Negative); Other Cells Negative (Negative)
--- NOTE | 2022-12-17 09:04 | NUR.NOTE ---
Nursing Note: Daughter Caridad [phone]
[2022-12-17] MEDS: cefTRIAXone 1 GM/50 ML BAG IVPB ×2 (09:06→11:47)
--- NOTE | 2022-12-17 09:39 | NUR.NOTE ---
Nursing Note: 1037 [facility] they [facility] not have any beds for transfer at this time, transfer ctr.
--- NOTE | 2022-12-17 10:00 | DI.CT_ITS ---
Exam(s) CT HEAD WO EXAM: CT HEAD WO CLINICAL HISTORY: slurred speech. TECHNIQUE: Imaging Protocol: Axial computed tomography images with coronal and sagittal reformatted images were created and reviewed COMPARISON: No exams were available for comparison FINDINGS: There is contrast seen in the vascular system secondary to the patient's CT scan of the chest, abdome n and pelvis from earlier in the day. Ventricles and Extra axial spaces: Normal in size and morphology for the patient's age. Hemorrhage: None. Cerebral parenchyma: No evidence of an acute territorial infarct. There are areas of decreased atten uation in the white matter most consistent with small vessel ischemic disease. Midline shift: None. Brainstem/Cerebellum: Normal. Calvarium: Normal. Visualized Paranasal sinuses/Mastoids: Clear. Soft Tissues: Unremarkable. IMPRESSION: 1. No acute intracranial process. 2. Findings were discussed with the emergency department at 10:30 a.m. on 12/17/2022. RADIATION DOSE DELIVERED: 770.01mGy.cm Total DLP DATA REPOSITORY: All CT scans at this facility are submitted to the National Radiology Data Registry (NRDR) Dose Index Registry (DIR) with the [employer] (ACR). RADIATION OPTIMIZATION: All CT scans at this facility use at least one of these dose optimization te chniques: automated exposure control; mA and/or kV adjustment per patient size (includes targeted exa ms where dose is matched to clinical indication); or iterative reconstruction.
--- NOTE | 2022-12-17 10:00 | RT.EKG_ITS ---
APPROVED REPORT Exam: Resting ECG Reason for Exam: elevated troponin Patient Location: E HR:73 bpm ECG Measurements Heart Rate 73 AXIS MT 67 P 0 QRSd 122 QRS 266 QT 454 T 262 QTc 500 Conclusion Atrial-ventricular dual-paced rhythm Biventricular paced rhythm...non-simultaneous bi-vent pacing
[2022-12-17 10:10] LABS: Troponin I 361 ng/L (<or=60)
[2022-12-17 12:09] LABS: Creatine Kinase 1265 U/L (39-308)
[2022-12-17 12:50] LABS: BE -6 mmol/L (-2-3); HCO3 19 mmol/L (22-26); pCO2 33 mmHg (35-45); pH 7.38 (7.35-7.45); pO2 56 mmHg (80-105); sO2 89 % (95-98); tCO2 18 mmol/L (23-27)
[2022-12-17 12:52] LABS: FIO2L 3 L; Site Left Radial
--- NOTE | 2022-12-17 13:47 | HPE_ITS ---
Date of service: 12/17/22 Time of Service: 13:47 Assessment and Plan Assessment and plan (1) Sepsis: Status: Acute Assessment and plan: likely source is UTI/prostate given hx of prostatitis/BPH; will broaden his coverage w/ meropenem pending results of his blood and urine cultures; support w/ judicious iv fluids given his rhabdomyolysis however will have to monitor response to iv fluids given his cardiomyopathy. Critical care time spent interviewing and examining the patient, reviewing studies, discussing case with patient's nurse and consulting physicians was 60 minutes. CODE STATUS discussed with his daughters. Patient is currently a full code. (2) Elevated troponin level: Status: Acute Assessment and plan: unable to rule out ACS given his pacer EKG. will get echo to look for new RWMA. monitor, continue aspirin and apixaban, if marked rise in troponin or new RWMA then consult w/ cardiology; possible place on heparin drip and consider addition of Plavix, but it seems to be likely type II demand ischemia in setting of sepsis (3) UTI (urinary tract infection): Status: Acute Assessment and plan: as above. no obstructive features on CT scan; will have nursing place [facility] (4) Atrial fibrillation and flutter: Assessment and plan: monitor; continue his BB as his BP will allow, continue apixaban (5) BPH associated with nocturia: (6) Cardiac pacemaker: (7) Cardiomyopathy: (8) Coronary artery disease: (9) Rhabdomyolysis: Status: Acute Assessment and plan: CK 1265, will monitor History of Present Illness History of Present Illness Chief Complaint: fever, fell at home, weak Emanuel rative: 77 yr old male smoker w/ CAD, s/p CABG x 3 vessel 1989 and subsequent PCI of L. Cx, [place] 2004 following VF/VT arrest, afib on Eliquis , s/p pacemaker (for CHB and slow afib 05/09/22 @ [facility] ,COPD (not formally diagnosed but emphysema on CT), BPH, PAD w/ LSFA stenting in 2008, patient was brought by EMS to ED at [facility] after falling down at home. Was on the floor for about 3 hours. Prolonged time for EMS to respond d/t remote location in [place] w/ trees down across roads. On arrival to the ED, he was hypotensive (92/69), febrile 38 C, and hypoxemic requiring oxygen at 4 lpm. Workup in the ED included labs (CMP, UA, CBC, CK, troponin I. Chemistries were remarkable for elevated BUn 35 and creatinine 1.5, low Mg 1.5, normal potassium, sodium and AG and normal transaminases. CK 1265, troponin I 287, 361. Lactate 3.0. CBC 16,000 w/ left shift, Hb 12.2 gm, HCT 35.3, MCV 102, RDW 14, platelets 128,000. EKG ventricular paced rhythm at [address] scan head w/ no acute findings (bilateral decreased attentuation in white matter c/w small vessel ischemic disease), CT chest, abdomen, pelvis: chest: no PE, no infiltrates or effusion, coronary calcification and stents; emphysema lungs; abdomen: 3.3 cm x 3.1 cm infrarenal AAA increased from 2.7 x 2.8 cm from 07/08/19. But no acute process. PFSH All Active Problems (Updated 12/17/22 @ 14:17 by Arya Loza MD) Rhabdomyolysis (Acute) UTI (urinary tract infection) (Acute) Sepsis (Acute) Elevated troponin level (Acute) Presence of cardiac resynchronization therapy pacemaker (CASE SPECIALIST-P) (Acute) Epistaxis (Acute) Vasomotor rhinitis (Acute) Prostatitis (Acute) Non-cardiac chest pain (Acute) Right rotator cuff tear (Acute) Depo-Medrol injection: 09/19/2021 Biceps tendinitis of right upper extremity (Acute) Arthritis of right glenohumeral joint (Acute) Left testicular pain (Acute) Shoulder pain, right (Acute) Hematuria (Acute) Cough (Acute) Telangiectasia (Acute 04/09/18) Pharyngeal Sinus bradycardia (Acute 06/17/17) S/P coronary artery bypass graft x 3 (Acute 05/28/90) 2004 stent 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 (Acute 07/02/16) Atypical chest pain (Acute) Bradycardia (Acute) Medical History Atrial fibrillation and flutter BPH associated with nocturia Cardiac pacemaker at [facility] 05/09/22 for CASE SPECIALIST RH Followed by [facility] Cardiomyopathy Coronary artery disease Coronary atherosclerosis Essential hypertension Insomnia Systolic heart failure (02/20/17) EF 45% on ECHO from 6/13/17 Tobacco abuse Tubular adenoma 11/13/05-[facility] 03/22/10--CV Surgical History Appendectomy Circumcision (10/27/97) Coronary Artery Bypass Gaft (CABG) (08/20/89) Extraction of cataract 12/15/13-LEFT Repair of inguinal hernia (05/06/08) B/L Stent placement Family History Mother Personal history of malignant neoplasm Father Stroke Sister Personal history of malignant neoplasm Brother No problems noted. Social History Smoking/Tobacco Use Status: Current every day Tobacco Type: cigarettes Smoking packs per day: 1.5 Smoking cigarettes per day: 30.0 and pipe Quit status: has quit before Second Hand Exposure: Yes Counseling given: patient declined Smoking risk assessment performed?: Yes Alcohol Intake: current Alcohol Intake frequency: a few times a month Alcohol type: beer Drug use: Never Substance use type: does not use Household members: spouse Housing: house Communication Needs: Hard of Hearing Do you need help understanding health information?: Rarely Pets and animals: Yes Pets and animals: dog(s) Sexually active: No Do you think of yourself as: straight/heterosexual Current gender identity: male What is your relationship status?: How often do you talk on the phone with friends or family?: three or more times per week How often do you attend taoist or taoism services?: decline to answer Do you belong to any clubs or organized social groups?: no Panel score (0-1 are the most socially isolated patients): 2 What type of physical activity do you participate in: weight lifting Duration: 15-30 minutes/day Frequency: 5-6 times per week Richa/Islam: Christianity Special richa needs: No Seatbelt use: always Helmet use: No Drive intox or ride w/intox pharmacy delivery driver: No Do you feel safe at home: Yes Do you feel safe in your relationship?: Yes Meds Allergies and Home Medications Allergies Allergy/AdvReac Type Severity Reaction Status Date / Time codeine AdvReac Intermediate Headache Verified 12/17/22 06:40 ezetimibe [From Zetia] AdvReac Intermediate myalgia Verified 12/17/22 06:40 metoprolol AdvReac Intermediate cough Verified 12/17/22 06:40 Home Medications Medication Instructions Recorded Confirmed Type coenzyme Q10 100 mg capsule (Co 100 mg PO DAILY 01/18/15 12/17/22 History Q-10) aspirin 81 mg tablet,delayed 81 mg PO DAILY 12/10/18 12/17/22 History release mupirocin 2 % topical ointment 1 applic topical TID #15 grams 01/22/22 12/11/22 Rx finasteride 5 mg tablet 5 mg PO HS #90 tabs 04/03/22 12/17/22 Rx apixaban 5 mg tablet (Eliquis) 5 mg PO bid #180 tabs 08/21/22 12/17/22 Rx zolpidem 5 mg tablet 5 mg PO QHS PRN sleep #30 tabs 08/21/22 12/17/22 Rx fluticasone propionate 50 2 spray intranasal DAILY #9.9 grams 09/06/22 12/17/22 Rx mcg/actuation nasal spray,suspension lisinopril 10 mg tablet 10 mg PO DAILY 90 days #90 tabs 09/29/22 12/17/22 Rx bisoprolol fumarate 5 mg tablet 5 mg PO DAILY #90 tabs 12/11/22 12/17/22 Rx rosuvastatin 40 mg tablet (Crestor) 40 mg PO DAILY #90 tabs 12/11/22 12/17/22 Rx Exam Narrative Exam Narrative: Elderly white male sitting up in the bed seems to be awake but confused. Mildly tachypneic but not in acute respiratory distress Neck supple nontender no overt JVD normal carotid pulses no adenopathy or thyromegaly Lungs diffusely diminished breath sounds with some scattered end expiratory wheeze's Heart is regular rate and rhythm no appreciable murmur rub Abdomen soft nontender nondistended normal bowel sounds Lower extremity without peripheral cyanosis or edema Neuro exam no focal motor deficits no focal sensory deficits. No facial asymmetry dysarthric speech Results Labs 12/17/22 06:55 12/17/22 06:55 Labs: Laboratory Results - last 24 hr 12/17/22 12/17/22 12/17/22 06:55 06:55 06:55 WBC 16.57 H RBC 3.45 L Hgb 12.2 L Hct 35.3 L MCV 102 H MCH 35.4 H MCHC 34.6 RDW 14.0 Plt Count 128 L MPV 10.6 Immature Gran % 0.0 Neutrophils % 81.0 Band Neutrophils % 0 Lymphocytes % 8.0 Atypical Lymphs % 0 Monocytes % 11.0 Eosinophils % 0.0 Basophils % 0.0 Nucleated RBC % 0.0 Absolute Neutrophils 13.42 H Absolute Lymphocytes 1.33 Absolute Monocytes 1.82 H Absolute Eosinophils 0.00 Absolute Basophils 0.00 RBC Morphology Normal ABG Sample Site ABG pH ABG pCO2 ABG pO2 ABG HCO3 ABG Total CO2 ABG O2 Saturation ABG Base Excess VBG Lactate 1.1 Oxygen Liter Flow Sodium 138 Potassium 4.0 Chloride 106 Carbon Dioxide 21.9 Anion Gap 10.1 BUN 35 H Creatinine 1.5 H Est GFR (CKD-EPI 2020) 47.65 Glucose 118 H Calcium 8.5 Magnesium 1.5 L Total Bilirubin 0.6 AST 26 ALT 17 Alkaline Phosphatase 52 Creatine Kinase Troponin I 287 H* Total Protein 7.1 Albumin 3.4 Urine Color Urine Clarity Urine pH Ur Specific [place] Urine Protein Urine Ketones Urine Blood Urine Nitrite Urine Bilirubin Urine Urobilinogen Ur Leukocyte Esterase Urine RBC Urine WBC Ur Epithelial Cells Urine Crystals Urine Bacteria Urine Casts Urine Mucus Urine Other Ur Culture Indicated? Urine Glucose COVID-19 Source SARS-CoV-2 (PCR) Influenza Type A (PCR) Influenza Type B (PCR) RSV (PCR) 12/17/22 12/17/22 12/17/22 06:55 08:03 09:37 WBC RBC Hgb Hct MCV MCH MCHC RDW Plt Count MPV Immature Gran % Neutrophils % Band Neutrophils % Lymphocytes % Atypical Lymphs % Monocytes % Eosinophils % Basophils % Nucleated RBC % Absolute Neutrophils Absolute Lymphocytes Absolute Monocytes Absolute Eosinophils Absolute Basophils RBC Morphology ABG Sample Site ABG pH ABG pCO2 ABG pO2 ABG HCO3 ABG Total CO2 ABG O2 Saturation ABG Base Excess VBG Lactate Oxygen Liter Flow Sodium Potassium Chloride Carbon Dioxide Anion Gap BUN Creatinine Est GFR (CKD-EPI 2020) Glucose Calcium Magnesium Total Bilirubin AST ALT Alkaline Phosphatase Creatine Kinase Troponin I 361 H* Total Protein Albumin Urine Color Yellow Urine Clarity Cloudy Urine pH 5.5 Ur Specific [place] 1.020 Urine Protein Negative Urine Ketones Trace H Urine Blood Trace-lysed H Urine Nitrite Negative Urine Bilirubin Negative Urine Urobilinogen 0.2 Ur Leukocyte Esterase Negative Urine RBC 3-5 H Urine WBC 3-5 Ur Epithelial Cells Rare Urine Crystals Moderate Amorphous Urine Bacteria Many Urine Casts Negative Urine Mucus Negative Urine Other Negative Ur Culture Indicated? Yes Urine Glucose Negative COVID-19 Source Nasopharynx SARS-CoV-2 (PCR) Negative Influenza Type A (PCR) Negative Influenza Type B (PCR) Negative RSV (PCR) Negative 12/17/22 12/17/22 12/17/22 09:37 12:41 12:45 WBC RBC Hgb Hct MCV MCH MCHC RDW Plt Count MPV Immature Gran % Neutrophils % Band Neutrophils % Lymphocytes % Atypical Lymphs % Monocytes % Eosinophils % Basophils % Nucleated RBC % Absolute Neutrophils Absolute Lymphocytes Absolute Monocytes Absolute Eosinophils Absolute Basophils RBC Morphology ABG Sample Site Left Radial ABG pH 7.38 ABG pCO2 33 L ABG pO2 56 L ABG HCO3 19 L ABG Total CO2 18 L ABG O2 Saturation 89 L ABG Base Excess -6 L VBG Lactate 3.0 H* Oxygen Liter Flow 3 Sodium Potassium Chloride Carbon Dioxide Anion Gap BUN Creatinine Est GFR (CKD-EPI 2020) Glucose Calcium Magnesium Total Bilirubin AST ALT Alkaline Phosphatase Creatine Kinase 1265 H Troponin I Total Protein Albumin Urine Color Urine Clarity Urine pH Ur Specific [place] Urine Protein Urine Ketones Urine Blood Urine Nitrite Urine Bilirubin Urine Urobilinogen Ur Leukocyte Esterase Urine RBC Urine WBC Ur Epithelial Cells Urine Crystals Urine Bacteria Urine Casts Urine Mucus Urine Other Ur Culture Indicated? Urine Glucose COVID-19 Source SARS-CoV-2 (PCR) Influenza Type A (PCR) Influenza Type B (PCR) RSV (PCR) Last Vital Signs Temp 36.8 C 12/17/22 11:24 Pulse 72 12/17/22 13:20 Resp 40 H 12/17/22 13:20 BP 106/38 L 12/17/22 13:20 Pulse Ox 93 12/17/22 13:20 Time Spent Time spent with Patient: 55-74 minutes Time was spent: preparing to see the patient(eg.review tests), obtaining and/or reviewing separately otained hiistory, referring, communicating with other health auto care center manager, indepentently interpreting results, counseling the patient (Counseling family regarding the gravity of his condition as well as treatment plan) and care coordination
[2022-12-17] MEDS: Lactated Ringers 1,000 ML 150 ML IV ×2 (14:00→20:05)
[2022-12-17 14:09] LABS: BE (Venous) -6 mmol/L (-2-3); HCO3 (Venous) 19 mmol/L (23-28); O2 Sat (Venous) 95 %; TCO2 (Venous) 17 mmol/L (24-29); pCO2 (Venous) 31 mmHg (41-51); pH (Venous) 7.39 (7.31-7.41); pO2 (Venous) 78 mmHg
[2022-12-17 14:32] LABS: Troponin I 435 ng/L (<or=60)
[2022-12-17 15:12] LABS: Procalcitonin 3.1 ng/mL
[2022-12-17] MEDS: MEROPENEM 1 GM in Normal Saline 100 ML IVPB (16:33)
[2022-12-17 17:27] LABS: Lactate 1.1 mmol/L (0.6-1.4)
[2022-12-17] MEDS: Normal Saline 500 ML 1000 ML IV (17:34)
[2022-12-17 17:52] LABS: Troponin I 808 ng/L (<or=60)
[2022-12-17] MEDS: Norepinephrine in D5W 8 MG/250 ML BAG 9.375 MG IV (18:41)
[2022-12-17 19:15] LABS: Lactate 1.7 mmol/L (0.6-1.4)
[2022-12-17] MEDS: Apixaban 5 MG TAB PO (20:03)
[2022-12-17] MEDS: Finasteride 5 MG TAB PO (20:04)
[2022-12-17] MEDS: Normal Saline Flush 10 ML SYR IVP (20:06)
[2022-12-17] MEDS: VANCOMYCIN/WATER (PEG) 1 GM/200 ML BAG IV (21:01)
[2022-12-17 21:42] LABS: Troponin I 846 ng/L (<or=60)
[2022-12-17 21:51] LABS: Creatine Kinase 2066 U/L (39-308)
[2022-12-18] VITALS (94 sets, daily range): BP systolic 87–139; BP diastolic 32–83; PULSE 68–117; RESP 0–37; TEMP 35.8–37.2; O2SAT 86–95
--- NOTE | 2022-12-18 | DI.US_ITS ---
APPROVED REPORT EXAM: Comprehensive 2D, Doppler, and color-flow Echocardiogram Patient Location: In-Patient Room/Bed: ICU Account Manager [employer]: Huma Duron RDCS (AE) Indications: Elevated troponin, sepsis,hx of icmo Other Information Study Quality: Adequate. Technically limited study due to body habitus, inability to position patient exam done supone bedside. Conclusion Normal left ventricular wall thickness and chamber size. EF is 50%. There is mild global hypokinesi s Left atrium appears normal in size Right atrium and right ventricle are not well visualized. Device lead is noted in the right heart Mildly thickened mitral leaflets with moderate regurgitation Normal tricuspid valve with mild regurgitation. Estimated right ventricular size systolic pressure i s 48 mmHg Normal aortic valve with mild regurgitation Wall motion Left Ventricle The left ventricle is normal size. Left ventricular systolic function is mildly decreased. There is n ormal left ventricular wall thickness. There is global hypokinesis of the left ventricle. There is no ventricular septal defect visualized. LVEF is 50%. Right Ventricle Right ventricle is not well visualized. Right ventricular systolic function could not be assessed. Th e RVSP is 47.6 mmHg. Pacemaker lead is present in the right ventricle. Atria The left atrium size is normal. The right atrium is not well visualized The interatrial septum is int act with no evidence for an atrial septal defect. Aortic Valve The aortic valve is normal in structure. Aortic valve is trileaflet. There is no aortic valvular sten osis. Mild aortic regurgitation. Mitral Valve Mitral valve leaflets are mildly thickened. No evidence of mitral valve stenosis. Moderate mitral r egurgitation. Tricuspid Valve The tricuspid valve is normal in structure. There is no tricuspid valve stenosis. Mild tricuspid regu rgitation. Pulmonic Valve The pulmonary valve is normal in structure. There is no pulmonic valvular stenosis. Mild pulmonic reg urgitation. Great Vessels The aortic root is normal in size. Ascending aorta is not well visualized. Aortic arch is not well vi sualized. The IVC collapses <50% with inspiration. Pericardium There is no pericardial effusion. 2D Dimensions IVSD d PLAX 0.82 cm M: 0.6-1.2 LV Vol A2C d MOD 117.4 mL LVPW d PLAX 0.86 cm M: 0.6 - 1.2 LV Vol A4C d MOD 118.0 mL LVID d PLAX 4.98 cm M: 4.2 - 5.8 LA vol/ BSA A2C s A-L 27.4 mL/m2 LVDs 3.75 cm M: 2.5 - 4.0 LA vol/ BSA A4C s A-L 32.1 mL/m2 Ao Root d 2.96 cm M: 3.1 - 3.7 LA Vol/ BSA Biplane s A-L 31.9 mL/m2 LV EF Teichholz 47.9 % LA Area A4C s MOD 18.64 cm2 LVEF (Walker's) 42.13 % M: 52 - 72 LA Area A2C s MOD 16.00 cm2 LV Volume 94.60 mL M: 62 - 150 LV EF A4C MOD 45.4 % LV Volume Index 56.30 mL/m2 M: 34 - 74 LV EF A2C MOD 45.3 % LV Vol Biplane MOD 118.6 mL LV EF Biplane MOD 42.1 % FS 24.15 % SV 49.96 mL SV Index 29.75 mL/m2 LV Diastology MV E' medial 0.108 (>0.07 m/s) E/A Ratio 1.4 LV E/e MED 7.50 (<14) MV E Vmax 0.81 (0.4-1.3 m/s) MV E' lateral 0.162 (>0.1 m/s) MV A Vmax 0.60 (0.4-1.3 m/s) LV E/e LAT 4.95 (<14) MV E/A Ratio 1.28 MV E/E' medial 7.50 MV E/E' lateral 4.97 Aortic Valve LVOT Area 3.41 cm2 AoV Area Vmax 3.11 cm2 LVOT Vmax 0.88 m/s AoV Area/ BSA (Vmax) 1.85 cm2/m2 LVOT Mean Trev. 0.61 m/s EMY Mean Trev. 2.72 cm2 LVOT Peak Grad 3.1 mmHg EMY Mean Trve. Index 1.62 cm2/m2 LVOT Mean Grad 1.7 mmHg AR DT 1716 msec LVOT VTI 0.168 m AR PHT 498 msec LVOT Diam s 2.05 cm AoV Vmax 0.96 m/s Velocity Ratio 0.92 AoV Mean Trev. 0.77 m/s AoV Peak Grad 3.7 mmHg LVOT SV 57.20 mL AoV Mean Grad 2.5 mmHg AoV VTI 0.191 m AoV Area VTI 3.00 cm2 AoV Area/ BSA (VTI) 1.78 cm/m2 Mitral Valve MV DT 146 (160-240 msec) MV PHT 42 msec MV Area PHT 5.19 cm2 MV VTI 0.325 m MV Area VTI 1.76 (4.0-6.0 cm2) Pulmonary Valve PV Vmax 0.76 (0.5-1.5 m/s) RVOT Peak Gr. 0.76 mmHg PV Peak Grad 2.3 mmHg RVOT Mean Gr. 0.40 mmHg PV Mean Grad 1.2 mmHg RVOT VTI 0.091 m PV VTI 0.134 m RVOT Vmax 0.44 m/s Tricuspid Valve TR Peak Grad 39.5 mmHg TR Vmax 3.15 m/s RA Pressure 8.00 mmHg RVSP (TR) 47.6 mmHg
[2022-12-18] MEDS: Lactated Ringers 1,000 ML 150 ML IV (02:38)
[2022-12-18] MEDS: MEROPENEM 1 GM in Normal Saline 100 ML IVPB (04:26)
[2022-12-18 07:00] LABS: Abs Immature Grans 0.16 10^3/uL (0.0-0.06); Absolute Lymphocyte Count 0.55 10^3/uL (1.2-3.4); Basophils % 0.4; HCT 34.1 % (40.0-50.0); HGB 11.9 g/dL (13.5-17.5); Immature Grans % 1.1; Lymphocytes % 3.9; MCH 36.1 pg (27.0-33.0); MCHC 34.9 % (32.0-36.0); MCV 103 fL (80-95); MPV 10.3 fL (8.0-11.0); Monocytes % 10.3; Neutrophils % 84.3; Platelet Count 124 10^3/uL (130-400); RDW 14.2 % (11.8-14.1); RDW-SD 54.2 fL; WBC 14.14 10^3/uL (4.4-10.8)
[2022-12-18 07:01] LABS: Absolute Basophil Count 0.06 10^3/uL (0.0-0.2); Absolute Monocyte Count 1.46 10^3/uL (0.1-0.8); Absolute Neutrophil Count 11.92 10^3/uL (1.2-6.7)
--- NOTE | 2022-12-18 07:25 | PUCC_ITS ---
General Date of Service Date of service: 12/18/22 Time of Service: 07:25 Reason for Admission to ICU: This is a 77 yo who is admitted to the ICU for presumed septic shock requiring levophed due to a urinary source. A more complete HPI can be found in the H&P. He denies urinary changes, no changes in respiratory symptoms, no rashes and no pain anywhere. He came to the hospital because when he got up from bed he fell and was too weak to pull himself up. Assessment and Plan Assessment and plan (1) Rhabdomyolysis: Status: Acute (2) UTI (urinary tract infection): Status: Acute (3) Septic shock: Status: Acute (4) Cardiogenic shock: Status: Acute (5) Atrial fibrillation and flutter: (6) NSTEMI (non-ST elevated myocardial infarction): Status: Acute (7) CURT (acute kidney injury): Status: Acute (8) Lactic acidosis: Status: Acute (9) Leukocytosis: Status: Acute (10) Anemia: Status: Chronic (11) Thrombocytopenia: Status: Chronic (12) Bacteremia: Status: Acute (13) Emphysema lung: Status: Acute (14) Respiratory failure with hypoxia: Status: Acute (15) Systolic heart failure: Assessment and plan: This is a 77 yo admitted for shock. I believe this is likely mixed septic and cardiogenic based on exam, history and POCUS. He is requiring Levophed to maintain blood pressures. His dumont CT is non revealing, but he does have gram positive cocci in urine and both blood cultures. He was just on meropenem so recommend changing this to ceftriaxone and adding vancomycin until we have speciation. I do also think he should be started on dobutamine in addition to the Levophed, to try and liberate him from the Levophed. Given these medications, he should have some sort of central access. A CVC or midline would suffice. He does not seem clinically volume overloaded, but POCUS exam does reveal B-lines in posterior lungs and a dilated plethoric IVC with reduced LV function. I recommend stopping IVF. His CURT has improved and his CK is not overly impressive. Recommendations Pulmonary: Hypoxic respiratory failure - supplemental O2 as needed for sats >88% Emphysema - albuterol prn - Duonebs cancelled Cardiac: Mixed Septic and Cardiogenic Shock - recommend starting dobutamine and continuing Levophed - if pressors not weaned by tomorrow, consider switching to low dose (<5mcg.min) epinephrine - hold IVF - hold bisoprolol NSTEMI, type II - troponin have plateaued - likely due to shock/bacteremia and demand, however close monitoring for chest pains/ELKG changes A. Fib - hold Eliquis and start heparin while unstable Renal: Rhabdomyolysis with CURT, improved - CURT improved and CK decreasing - s/p IVF - stop fluids for now Lactic acidosis - improved I&O: Intake & Output 12/15/22 12/16/22 12/17/22 12/18/22 23:59 23:59 23:59 23:59 Intake Total 3098.875 / 3098.875 1128.282 / 1128.282 Output Total 550 / 550 655 / 655 Balance 2548.875 / 2548.875 473.282 / 473.282 Weight 57.3 kg 63.9 kg Daily Fluid Goal:: even GI Nutrition: OK for diet Infectious Disease: Gram positive bacteremia - formal echo to assess for endocarditis, pacer lead veg - recommend stopping meropenem - recommend ceftriaxone and vanc until speciation - repeat blood culture today UTI - gram positive bacteria in urine - abx as above - no obstruction or pyelo on imaging Hematologic: Anemia - possible due to infection vs iatrogenic Leukocytosis - due to infection Thrombocytopenia - likely due to infection Neurologic: No acute concerns Endocrine: No acute concerns Lines: [place] PIV Prophylaxis: on heparin infusion no GI ppx needed Code Status: Resuscitation Status Full Code Subjective Critical and life-threatening events over the past 24 hours: He has been admitted, started on meropenem and Levophed. Exam Narrative Exam Narrative: Gen: NAD, normal respiratory effort, well-nourished HENT: PERRL, nasal turbinates normal without erythema or inflammation, moist oral mucosa, Mallampati 2, No LAD or JVD Chest: No respiratory distress, normal appearance of chest, clear to auscultation bilaterally, no crackles or wheezes, normal inspiratory effort Heart: regular rate and rhythym, no murmurs, rubs or gallops Abdomen: Non-distended, soft, non tender Extremities: No clubbing, edema, cyanosis, rashes Neuro: AAOx3 , non focal Psych: cooperative, appropriate mental affect Most Recent VS/Results Last Vital Signs Temp 37.2 C 12/18/22 04:30 Pulse 70 12/18/22 06:30 Resp 31 H 12/18/22 06:30 BP 113/53 L 12/18/22 06:30 Pulse Ox 88 L 12/18/22 06:30 Laboratory Results - last 24 hr 12/17/22 12/17/22 12/17/22 06:55 06:55 08:03 WBC RBC Hgb Hct MCV MCH MCHC RDW Plt Count MPV Immature Gran % Neutrophils % Lymphocytes % Monocytes % Eosinophils % Basophils % Nucleated RBC % Absolute Neutrophils Absolute Lymphocytes Absolute Monocytes Absolute Eosinophils Absolute Basophils ABG Sample Site ABG pH ABG pCO2 ABG pO2 ABG HCO3 ABG Total CO2 ABG O2 Saturation ABG Base Excess VBG pH VBG pCO2 VBG pO2 VBG HCO3 VBG Total CO2 VBG O2 Saturation VBG Base Excess VBG Lactate Oxygen Liter Flow Sodium 138 Potassium 4.0 Chloride 106 Carbon Dioxide 21.9 Anion Gap 10.1 BUN 35 H Creatinine 1.5 H Est GFR (CKD-EPI 2020) 47.65 Glucose 118 H Calcium 8.5 Magnesium 1.5 L Total Bilirubin 0.6 AST 26 ALT 17 Alkaline Phosphatase 52 Creatine Kinase Troponin I 287 H* Total Protein 7.1 Albumin 3.4 Procalcitonin Urine Color Yellow Urine Clarity Cloudy Urine pH 5.5 Ur Specific Freeman 1.020 Urine Protein Negative Urine Ketones Trace H Urine Blood Trace-lysed H Urine Nitrite Negative Urine Bilirubin Negative Urine Urobilinogen 0.2 Ur Leukocyte Esterase Negative Urine RBC 3-5 H Urine WBC 3-5 Ur Epithelial Cells Rare Urine Crystals Moderate Amorphous Urine Bacteria Many Urine Casts Negative Urine Mucus Negative Urine Other Negative Ur Culture Indicated? Yes Urine Glucose Negative COVID-19 Source Nasopharynx SARS-CoV-2 (PCR) Negative Influenza Type A (PCR) Negative Influenza Type B (PCR) Negative RSV (PCR) Negative 12/17/22 12/17/22 12/17/22 09:37 09:37 12:41 WBC RBC Hgb Hct MCV MCH MCHC RDW Plt Count MPV Immature Gran % Neutrophils % Lymphocytes % Monocytes % Eosinophils % Basophils % Nucleated RBC % Absolute Neutrophils Absolute Lymphocytes Absolute Monocytes Absolute Eosinophils Absolute Basophils ABG Sample Site ABG pH ABG pCO2 ABG pO2 ABG HCO3 ABG Total CO2 ABG O2 Saturation ABG Base Excess VBG pH VBG pCO2 VBG pO2 VBG HCO3 VBG Total CO2 VBG O2 Saturation VBG Base Excess VBG Lactate 3.0 H* Oxygen Liter Flow Sodium Potassium Chloride Carbon Dioxide Anion Gap BUN Creatinine Est GFR (CKD-EPI 2020) Glucose Calcium Magnesium Total Bilirubin AST ALT Alkaline Phosphatase Creatine Kinase 1265 H Troponin I 361 H* Total Protein Albumin Procalcitonin Urine Color Urine Clarity Urine pH Ur Specific Freeman Urine Protein Urine Ketones Urine Blood Urine Nitrite Urine Bilirubin Urine Urobilinogen Ur Leukocyte Esterase Urine RBC Urine WBC Ur Epithelial Cells Urine Crystals Urine Bacteria Urine Casts Urine Mucus Urine Other Ur Culture Indicated? Urine Glucose COVID-19 Source SARS-CoV-2 (PCR) Influenza Type A (PCR) Influenza Type B (PCR) RSV (PCR) 12/17/22 12/17/22 12/17/22 12:45 14:00 14:00 WBC RBC Hgb Hct MCV MCH MCHC RDW Plt Count MPV Immature Gran % Neutrophils % Lymphocytes % Monocytes % Eosinophils % Basophils % Nucleated RBC % Absolute Neutrophils Absolute Lymphocytes Absolute Monocytes Absolute Eosinophils Absolute Basophils ABG Sample Site Left Radial ABG pH 7.38 ABG pCO2 33 L ABG pO2 56 L ABG HCO3 19 L ABG Total CO2 18 L ABG O2 Saturation 89 L ABG Base Excess -6 L VBG pH 7.39 VBG pCO2 31 L VBG pO2 78 VBG HCO3 19 L VBG Total CO2 17 L VBG O2 Saturation 95 VBG Base Excess -6 L VBG Lactate Oxygen Liter Flow 3 Sodium Potassium Chloride Carbon Dioxide Anion Gap BUN Creatinine Est GFR (CKD-EPI 2020) Glucose Calcium Magnesium Total Bilirubin AST ALT Alkaline Phosphatase Creatine Kinase Troponin I 435 H* Total Protein Albumin Procalcitonin Urine Color Urine Clarity Urine pH Ur Specific Freeman Urine Protein Urine Ketones Urine Blood Urine Nitrite Urine Bilirubin Urine Urobilinogen Ur Leukocyte Esterase Urine RBC Urine WBC Ur Epithelial Cells Urine Crystals Urine Bacteria Urine Casts Urine Mucus Urine Other Ur Culture Indicated? Urine Glucose COVID-19 Source SARS-CoV-2 (PCR) Influenza Type A (PCR) Influenza Type B (PCR) RSV (PCR) 12/17/22 12/17/22 12/17/22 14:00 17:15 17:15 WBC RBC Hgb Hct MCV MCH MCHC RDW Plt Count MPV Immature Gran % Neutrophils % Lymphocytes % Monocytes % Eosinophils % Basophils % Nucleated RBC % Absolute Neutrophils Absolute Lymphocytes Absolute Monocytes Absolute Eosinophils Absolute Basophils ABG Sample Site ABG pH ABG pCO2 ABG pO2 ABG HCO3 ABG Total CO2 ABG O2 Saturation ABG Base Excess VBG pH VBG pCO2 VBG pO2 VBG HCO3 VBG Total CO2 VBG O2 Saturation VBG Base Excess VBG Lactate 1.1 Oxygen Liter Flow Sodium Potassium Chloride Carbon Dioxide Anion Gap BUN Creatinine Est GFR (CKD-EPI 2020) Glucose Calcium Magnesium Total Bilirubin AST ALT Alkaline Phosphatase Creatine Kinase Troponin I 808 H* Total Protein Albumin Procalcitonin 3.1 Urine Color Urine Clarity Urine pH Ur Specific Freeman Urine Protein Urine Ketones Urine Blood Urine Nitrite Urine Bilirubin Urine Urobilinogen Ur Leukocyte Esterase Urine RBC Urine WBC Ur Epithelial Cells Urine Crystals Urine Bacteria Urine Casts Urine Mucus Urine Other Ur Culture Indicated? Urine Glucose COVID-19 Source SARS-CoV-2 (PCR) Influenza Type A (PCR) Influenza Type B (PCR) RSV (PCR) 12/17/22 12/17/22 12/17/22 19:06 21:00 21:04 WBC RBC Hgb Hct MCV MCH MCHC RDW Plt Count MPV Immature Gran % Neutrophils % Lymphocytes % Monocytes % Eosinophils % Basophils % Nucleated RBC % Absolute Neutrophils Absolute Lymphocytes Absolute Monocytes Absolute Eosinophils Absolute Basophils ABG Sample Site ABG pH ABG pCO2 ABG pO2 ABG HCO3 ABG Total CO2 ABG O2 Saturation ABG Base Excess VBG pH VBG pCO2 VBG pO2 VBG HCO3 VBG Total CO2 VBG O2 Saturation VBG Base Excess VBG Lactate 1.7 H Oxygen Liter Flow Sodium Potassium Chloride Carbon Dioxide Anion Gap BUN Creatinine Est GFR (CKD-EPI 2020) Glucose Calcium Magnesium Total Bilirubin AST ALT Alkaline Phosphatase Creatine Kinase Troponin I Cancelled 846 H* Total Protein Albumin Procalcitonin Urine Color Urine Clarity Urine pH Ur Specific Freeman Urine Protein Urine Ketones Urine Blood Urine Nitrite Urine Bilirubin Urine Urobilinogen Ur Leukocyte Esterase Urine RBC Urine WBC Ur Epithelial Cells Urine Crystals Urine Bacteria Urine Casts Urine Mucus Urine Other Ur Culture Indicated? Urine Glucose COVID-19 Source SARS-CoV-2 (PCR) Influenza Type A (PCR) Influenza Type B (PCR) RSV (PCR) 12/17/22 12/18/22 21:10 05:45 WBC 14.14 H RBC 3.30 L Hgb 11.9 L Hct 34.1 L MCV 103 H MCH 36.1 H MCHC 34.9 RDW 14.2 H Plt Count 124 L MPV 10.3 Immature Gran % 1.1 Neutrophils % 84.3 Lymphocytes % 3.9 Monocytes % 10.3 Eosinophils % 0.0 Basophils % 0.4 Nucleated RBC % 0.0 Absolute Neutrophils 11.92 H Absolute Lymphocytes 0.55 L Absolute Monocytes 1.46 H Absolute Eosinophils 0.00 Absolute Basophils 0.06 ABG Sample Site ABG pH ABG pCO2 ABG pO2 ABG HCO3 ABG Total CO2 ABG O2 Saturation ABG Base Excess VBG pH VBG pCO2 VBG pO2 VBG HCO3 VBG Total CO2 VBG O2 Saturation VBG Base Excess VBG Lactate Oxygen Liter Flow Sodium Potassium Chloride Carbon Dioxide Anion Gap BUN Creatinine Est GFR (CKD-EPI 2020) Glucose Calcium Magnesium Total Bilirubin AST ALT Alkaline Phosphatase Creatine Kinase 2065 H Troponin I Total Protein Albumin Procalcitonin Urine Color Urine Clarity Urine pH Ur Specific Freeman Urine Protein Urine Ketones Urine Blood Urine Nitrite Urine Bilirubin Urine Urobilinogen Ur Leukocyte Esterase Urine RBC Urine WBC Ur Epithelial Cells Urine Crystals Urine Bacteria Urine Casts Urine Mucus Urine Other Ur Culture Indicated? Urine Glucose COVID-19 Source SARS-CoV-2 (PCR) Influenza Type A (PCR) Influenza Type B (PCR) RSV (PCR) Review of Systems All systems reviewed & are unremarkable except as noted in HPI and below Time spent with patient Time spent in Critical Care: 75 Time spent in Critical care included: Performing procedures not included in c.c time, Chart review, Documenting critically ill care, Time at immediate bedside and Discussing critically ill care with other medical staff Pocus Exam Limited Cardiac Exam DATE OF EXAM: 12/18/22 TIME OF EXAM: 07:30 PROVIDER THAT PERFORMED THE STUDY: Tejal Hawthorne IS THIS A REPEAT EXAM DURING THIS ENCOUNTER: no REASON FOR EXAM: Evaluation of LV function, Hypotension and Septic Shock VISUALIZED STRUCTURES: four chambers, left atrium, left ventricle, LVOT, right atrium, right ventricle, aortic valve, mitral valve, Interventricular septum and IVC VIEW OBTAINED: Apical 4-Chamber, Parasternal long-axis, Parasternal short-axis and Subxiphoid PERTINENT FINDINGS/IMPRESSION: LV dysfunction and Plethoric IVC; No pericardial effusion DIFFERENTIAL DIAGNOSES: Cardiogenic shock vs septic shock with decompensated heart failure Exam complete Limited Thoracic Lung Exam DATE OF EXAM: 12/18/22 TIME OF EXAM: 07:50 PROVIDER THAT PERFORMED THE STUDY: Tejal Hawthorne IS THIS A REPEAT EXAM DURING THIS ENCOUNTER: No REASON FOR EXAM: Hypotension and Hypoxia VISUALIZED STRUCTURES: right anterior, left anterior, right posterior and left posterior PERTINENT FINDINGS/IMPRESSION: B-lines/left side and B-lines/right side; no pleural effusion on the left and no pleural effusion on the right DIFFERENTIAL DIAGNOSES: Pathologic bilateral posterior B-lines Exam complete Multi-Disciplinary Checklist Lines/Tubes CENTRAL LINE: no ARTERIAL LINE: no [place]: yes, [place] Day#: 1 ENDOTRACHEAL TUBE: no ICU Maintenance GLUCOSE 140-180mg/dL: yes NUTRITION AT GOAL: yes PRESSURE ULCER: no RESTRAINTS: no ANTIBIOTICS(if yes, consider Stewardship): Yes Social Issues FAMILY UPDATED: no, Reason/Intervention: defer to patient/hospitalist PT/OT: no, Reason/Intervention: not appropriate at this time 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
--- NOTE | 2022-12-18 07:30 | RT.EKG_ITS ---
APPROVED REPORT Exam: Resting ECG Reason for Exam: Elevated troponin Patient Location: I HR:72 bpm ECG Measurements Heart Rate 72 AXIS WI 192 P [id number] QRSd 116 QRS -57 QT 413 T 147 QTc 453 Conclusion Atrial-ventricular dual-paced complexes...other complexes also detected No further analysis attempted due to paced rhythm Artifact in lead(s) V2 and baseline wander in lead(s) V2
[2022-12-18 07:31] LABS: ALT 20 U/L (16-63); AST 57 U/L (15-37); Albumin 2.6 g/dL (3.4-5.0); Alkaline Phosphatase 41 U/L (46-116); Anion Gap 8.4 mmol/L (3-11); BUN 25 mg/dL (7-18); Bilirubin, Total 0.5 mg/dL (0.2-1.0); CO2 21.6 mmol/L (21.0-32.0); CREATININE 1.3 mg/dL (0.70-1.30); Chloride 107 mmol/L (98-107); Estimated GFR 56.58 (mL/min/1.73m2); Glucose 109 mg/dL (74-106); Potassium 4.1 mmol/L (3.5-5.1); Sodium 137 mmol/L (136-145)
[2022-12-18 07:32] LABS: Creatine Kinase 1686 U/L (39-308)
[2022-12-18 07:33] LABS: Troponin I 1002 ng/L (<or=60)
[2022-12-18] MEDS: Bisoprolol 5 MG TAB PO (07:46)
[2022-12-18] MEDS: Aspirin E.C. 81 MG TABEC PO (07:46)
[2022-12-18] MEDS: Fluticasone NASAL SPRAY 16 GM BTL NS (07:46)
--- NOTE | 2022-12-18 08:55 | PDOC.CMIN ---
- If Service Date Differs Date of service: 12/18/22 Time of Service: 08:55 Care Management Initial Assess REASON FOR HOSPITALIZATION:: sepsis PAST MEDICAL HISTORY/PAST SURGICAL HISTORY:: All Active Problems (Updated 12/17/22 @ 14:17 by Arya Loza MD). Rhabdomyolysis (Acute). UTI (urinary tract infection) (Acute). Sepsis (Acute). Elevated troponin level (Acute). Presence of cardiac resynchronization therapy pacemaker (INDUCTION MACHINE OPERATOR-P) (Acute). Epistaxis (Acute). Vasomotor rhinitis (Acute). Prostatitis (Acute). Non-cardiac chest pain (Acute). Right rotator cuff tear (Acute). Depo-Medrol injection: 09/19/2021. Biceps tendinitis of right upper extremity (Acute). Arthritis of right glenohumeral joint (Acute). Left testicular pain (Acute). Shoulder pain, right (Acute). Hematuria (Acute). Cough (Acute). Telangiectasia (Acute 04/09/18). Pharyngeal. Sinus bradycardia (Acute 06/17/17). S/P coronary artery bypass graft x 3 (Acute 05/28/90). 2005 stent. 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 Atypical chest pain (Acute). Bradycardia (Acute). Medical History . Atrial fibrillation and flutter. BPH associated with nocturia. Cardiac pacemaker. at [facility] 05/09/22 for INDUCTION MACHINE OPERATOR RH Followed by [facility]. Cardiomyopathy. Coronary artery disease. Coronary atherosclerosis. Essential hypertension. Insomnia. Systolic heart failure (02/20/17). EF 45% on ECHO from 01/29/17. Tobacco abuse. Tubular adenoma. [facility]/05[facility]. Surgical History . Appendectomy. Circumcision (10/27/97). Coronary Artery Bypass G[place] (CABG) (08/20/89). Extraction of cataract. 12/15/13-LEFT. Repair of inguinal hernia (05/06/08). B/L. Stent placement PREVIOUS FUNCTIONAL STATUS/SOCIAL/FAMILY SUPPORTS:: Joshua lives in a single family home in [place], [place] with his Kira. He has 3 daughters, 5 grandchildren and 2 great grandchildren. Joshua is retired but worked for most of his life for [employer] in [employer] and services. He is independent at baseline and does not receive any services. He has a cane, a wheelchair and a walker but does not need to use any of them. CURRENT FUNCTIONAL STATUS:: Joshua was lying in bed visiting with his daughter Arya. He was open to conversation and pleasant in interaction, joking with CM from time to time. Both Joshua and Arya understand that he has bacteremia and will likely require terminal manager IV antibiotics. The source of the bacteremia is unclear at this time and neither the organism or susceptiibilities are known. Arya seemed to understand that her father might possibly be discharged tomorrow but CM indicated that it was unlikely for the above reasons. CM did discuss the various settings where a long course of IVAB could be administered but both Joshua and Arya seemed sure it would be at home. ADVANCE DIRECTIVES:: none on file Has patient been provided with info about the portal/API?: Yes Did the patient sign up for the portal?: No CODE STATUS:: Full Code INSURANCE COVERAGE / FINANCIAL ISSUES:: Medicare A&B. AARP [facility] supplement - Plan N. Financial Assist 85 CURRENT HOME/COMMUNITY SERVICES/EQUIPMENT:: has a walker, cane and wheelchair but does not use. PRIMARY CARE PHYSICIAN:: [place] POTENTIAL DISCHARGE NEEDS:: follow up with PCP and plan of care PATIENT/FAMILY EDUCATION NEEDS:: Review of discharge instructions, limitations, follow up plan, discuss Ask Me Three TRANSPORTATION:: via private vehicle with family PLAN:: Anticipate Joshua will be discharged home when medically cleared. He will likely need terminal manager IV antibiotics. Depending on the organism and antibiotic regimen needed to treat the bacteremia, this could be done at home or in the Infusion Center of at [facility] in -1. He will follow up with his conmmunity providers and plan of care as precribed and transport with family. CM will continue to support Joshua and assess for discharge planning concerns.
[2022-12-18 09:32] LABS: Troponin I 861 ng/L (<or=60)
[2022-12-18] MEDS: DOBUTamine 500 MG/250 ML BAG IV (10:22)
[2022-12-18] MEDS: Acetaminophen 325 MG TAB PO ×2 (11:11→20:42)
[2022-12-18] MEDS: cefTRIAXone 1 GM/50 ML BAG IVPB (12:10)
--- NOTE | 2022-12-18 15:49 | W.PM.PROGNOT ---
Date of Service Date of service: 12/18/22 Time of Service: 15:49 Assessment and Plan Assessment and plan (1) Sepsis: Status: Acute Assessment and plan: likely source is UTI/prostate given hx of prostatitis/BPH; Blood cx growing gram + cocci. Now on Rocephin and vancomycin. Repeat blood cultures in AM. On levophed. This AM, bedside POCUS exam indicated a likely diminished EF so dobutamine initiated and attempt made to d/c levophed. HOwever, BP declined while on dobutamine only. PICC ordered and will be placed on levophed only now that formal echocardiogram shows an EF of 50%. Does have mild global hypokinesis. WBC count improved. . (2) Elevated troponin level: Status: Acute Assessment and plan: unable to rule out ACS given his pacer EKG. will get echo to look for new RWMA. monitor, continue aspirin and apixaban, if marked rise in troponin or new RWMA then consult w/ cardiology; possible place on heparin drip and consider addition of Plavix, but it seems to be likely type II demand ischemia in setting of sepsis Peaked at 1002 and then decreased to 861. Type II demand ischemia. No segmental wall motion abnormality. Will stop heparin and restart home apixaban 5mg BID. Cont ASA and Plavix. (3) UTI (urinary tract infection): Status: Acute Assessment and plan: Cx growing gram positive dana, mixed; prelim. as above. no obstructive features on CT scan; will have nursing place hensley (4) Atrial fibrillation and flutter: Assessment and plan: monitor; continue his BB as his BP will allow, continue apixaban (5) BPH associated with nocturia: Assessment and plan: Hensley catheter in place. Initiate flomax. (6) Cardiac pacemaker: Assessment and plan: Appears to be functioning properly. See EKG. (7) Cardiomyopathy: Assessment and plan: MIld global hypokinesis with EF of 50%. (8) Coronary artery disease: Assessment and plan: Cont Plavix, ASA and BB. (9) Rhabdomyolysis: Status: Acute Assessment and plan: CK 1265> 2066 > 1686. Improved renal function. Encourage po intake. (10) Discharge planning issues: Status: Acute Assessment and plan: Final ID and sensitivities pending on blood cx; this will be a major determinant of his disposition. Likely will need AMBIKA. Will need long-term antibiotics given gram+ bacteremia with growth in both culture bottle. Subjective Subjective Patient reports: no new complaints, feels better, tolerating a regular diet and afebrile; denies nausea, vomiting or shortness of breath Exam Narrative Exam Narrative: Gen: alert, conversant. NAD. Neck supple nontender no overt JVD Lungs diffusely diminished breath sounds. Clear. Nonlabored breathing. Heart is regular rate and rhythm no appreciable murmur Abdomen soft nontender nondistended normal bowel sounds Lower extremity without peripheral cyanosis or edema Neuro exam no focal motor deficits no focal sensory deficits. No facial asymmetry dysarthric speech Objective Last Vital Signs Temp 36.7 C 12/18/22 13:13 Pulse 76 12/18/22 13:04 Resp 29 H 12/18/22 13:04 BP 105/50 L 12/18/22 13:04 Pulse Ox 90 L 12/18/22 13:04 Laboratory Results - last 24 hr 12/17/22 12/17/22 12/17/22 17:15 17:15 19:06 WBC RBC Hgb Hct MCV MCH MCHC RDW Plt Count MPV Immature Gran % Neutrophils % Lymphocytes % Monocytes % Eosinophils % Basophils % Nucleated RBC % Absolute Neutrophils Absolute Lymphocytes Absolute Monocytes Absolute Eosinophils Absolute Basophils VBG Lactate 1.1 1.7 H Sodium Potassium Chloride Carbon Dioxide Anion Gap BUN Creatinine Est GFR (CKD-EPI 2020) Glucose Calcium Total Bilirubin AST ALT Alkaline Phosphatase Creatine Kinase Troponin I 808 H* Total Protein Albumin 12/17/22 12/17/22 12/18/22 21:04 21:10 05:45 WBC RBC Hgb Hct MCV MCH MCHC RDW Plt Count MPV Immature Gran % Neutrophils % Lymphocytes % Monocytes % Eosinophils % Basophils % Nucleated RBC % Absolute Neutrophils Absolute Lymphocytes Absolute Monocytes Absolute Eosinophils Absolute Basophils VBG Lactate Sodium 137 Potassium 4.1 Chloride 107 Carbon Dioxide 21.6 Anion Gap 8.4 BUN 25 H Creatinine 1.3 Est GFR (CKD-EPI 2020) 56.58 Glucose 109 H Calcium 8.0 L Total Bilirubin 0.5 AST 57 H ALT 20 Alkaline Phosphatase 41 L Creatine Kinase 2066 H 1686 H Troponin I 846 H* 1002 H* Total Protein 6.0 L Albumin 2.6 L 12/18/22 12/18/22 05:45 09:00 WBC 14.14 H RBC 3.30 L Hgb 11.9 L Hct 34.1 L MCV 103 H MCH 36.1 H MCHC 34.9 RDW 14.2 H Plt Count 124 L MPV 10.3 Immature Gran % 1.1 Neutrophils % 84.3 Lymphocytes % 3.9 Monocytes % 10.3 Eosinophils % 0.0 Basophils % 0.4 Nucleated RBC % 0.0 Absolute Neutrophils 11.92 H Absolute Lymphocytes 0.55 L Absolute Monocytes 1.46 H Absolute Eosinophils 0.00 Absolute Basophils 0.06 VBG Lactate Sodium Potassium Chloride Carbon Dioxide Anion Gap BUN Creatinine Est GFR (CKD-EPI 2020) Glucose Calcium Total Bilirubin AST ALT Alkaline Phosphatase Creatine Kinase Troponin I 861 H* Total Protein Albumin PAWSS Have you Been Recently Intoxicated or Drunk Within the Last 30 days?: No Have you Ever Experienced Previous Episodes of Alcohol Withdrawal?: No Have you ever Experienced Withdrawal Seizures?: No Have you ever Experienced Delirium Tremens(DT)s?: No Have you ever undergone Alcohol Rehabilitation Treatment (i.e, inpt ot outpatient treatment programs)?: No Have you ever Experienced Blackouts?: No Have you ever Combined Alcohol with other Downers within the last 90 days?: No Have you ever Combined Alcohol with any other Substance of Abuse during the last 90 days?: No Positive Blood Alcohol level on Presentation? [PCS.BAL]: No Evidence of Increased Autonomic Activity (i.e. HR>120, tremor, sweating, agitation, nausea)?: No Result: 0 Time Spent with Patient Time Spent with Patient: 35-49 minutes Time was spent: preparing to see the patient(eg.review tests), obtaining and/or reviewing separately otained hiistory, ordering medications,tests, procedures, referring, communicating with other health pharmacy customer care specialist, indepentently interpreting results, counseling the patient and other (Discussing care with daughters)
[2022-12-18 17:56] LABS: PTT Activated 59.7 sec (21.5-31.9)
[2022-12-18] MEDS: Norepinephrine in D5W 8 MG/250 ML BAG 9.375 MG IV (18:26)
[2022-12-18 19:48] LABS: Legionella Ag Detection Urine Negative (Negative)
[2022-12-18] MEDS: Rosuvastatin 10 MG TAB 40 MG PO (20:41)
[2022-12-18] MEDS: Tamsulosin 0.4 MG CAPCR PO (20:41)
[2022-12-18] MEDS: Finasteride 5 MG TAB PO (20:41)
[2022-12-18] MEDS: VANCOMYCIN/WATER (PEG) 750 MG/150 ML BAG 150 MG IVPB (20:42)
[2022-12-18] MEDS: Normal Saline Flush 10 ML SYR IVP (20:43)
[2022-12-19] VITALS (74 sets, daily range): BP systolic 75–148; BP diastolic 34–67; PULSE 66–98; RESP 16–36; TEMP 36.3–37; O2SAT 85–95
[2022-12-19 00:03] LABS: PTT Activated 58.6 sec (21.5-31.9)
[2022-12-19] MEDS: Acetaminophen 325 MG TAB PO ×2 (05:35→20:47)
[2022-12-19 06:02] LABS: Abs Immature Grans 0.05 10^3/uL (0.0-0.06); Absolute Basophil Count 0.02 10^3/uL (0.0-0.2); Absolute Eosinophil Count 0.06 10^3/uL (0.0-0.7); Absolute Lymphocyte Count 1.08 10^3/uL (1.2-3.4); Absolute Monocyte Count 1.14 10^3/uL (0.1-0.8); Absolute Neutrophil Count 7.67 10^3/uL (1.2-6.7); Basophils % 0.2; Eosinophils % 0.6; HCT 31.7 % (40.0-50.0); Immature Grans % 0.5; Lymphocytes % 10.8; MCH 35.1 pg (27.0-33.0); MCHC 34.7 % (32.0-36.0); MCV 101 fL (80-95); MPV 8.9 fL (8.0-11.0); Monocytes % 11.4; Neutrophils % 76.5; Platelet Count 109 10^3/uL (130-400); RBC 3.13 10^6/uL (4.36-5.78); RDW 13.9 % (11.8-14.1); RDW-SD 51.6 fL; WBC 10.02 10^3/uL (4.4-10.8)
[2022-12-19 06:11] LABS: Anion Gap 9.1 mmol/L (3-11); BUN 20 mg/dL (7-18); CO2 23.9 mmol/L (21.0-32.0); CREATININE 1.2 mg/dL (0.70-1.30); Chloride 105 mmol/L (98-107); Estimated GFR 62.29 (mL/min/1.73m2); Glucose 115 mg/dL (74-106); Magnesium 1.6 mg/dL (1.8-2.4); Potassium 3.6 mmol/L (3.5-5.1); Sodium 138 mmol/L (136-145)
[2022-12-19 06:20] LABS: PTT Activated 56.6 sec (21.5-31.9)
[2022-12-19] MEDS: DOBUTamine 500 MG/250 ML BAG 13.419 MG IV (06:53)
--- NOTE | 2022-12-19 08:39 | CMPROGNOTE_ITS ---
- If Service Date Differs Date of service: 12/19/22 Time of Service: 08:39 Care Management Progress Note S/O:Joshua was sitting up in bed visiting with his daughter when CM met with him. He stated that he is feeling so,so. His daughter Arya informed CM that the provider reported that he was going to order a AMBIKA and that he would need to go to [facility] for a down and back procedure when they have availability. Joshua remains acutely ill and requires ICU level of care. The identification and susceptibilities of the organism causing his bacteremia is now known to be dumont- sensitive S. aureus. CM will discuss options for medication administration with Joshua and his family tomorrow, A: Joshua is a 77 year old man admitted on 12/17/22 with sepsis P:Anticipate Joshua will be discharged home when medically cleared. He will likely need intermediate card tender IV antibiotics. Depending on the organism and antibiotic regimen needed to treat the bacteremia, this could be done at home or in the Infusion Center or at [facility]. He will follow up with his community providers and plan of care as prescribed and transport with family. CM will continue to support Joshua and assess for discharge planning concerns.
[2022-12-19] MEDS: Fluticasone NASAL SPRAY 16 GM BTL NS (09:05)
[2022-12-19] MEDS: Normal Saline Flush 10 ML SYR IVP ×2 (09:05→09:51)
[2022-12-19] MEDS: Aspirin E.C. 81 MG TABEC PO (09:05)
[2022-12-19] MEDS: Normal Saline 250 ML IV ×2 (09:17→14:02)
[2022-12-19] MEDS: Apixaban 5 MG TAB PO ×2 (09:44→20:48)
[2022-12-19] MEDS: ceFAZolin 2 GM/50 ML BAG IVPB ×2 (09:44→17:15)
[2022-12-19 16:29] LABS: Streptococcus Pneumoniae Ag, U Negative (Negative)
--- NOTE | 2022-12-19 16:46 | W.PM.PROGNOT ---
Date of Service Date of service: 12/19/22 Time of Service: 16:46 Assessment and Plan Assessment and plan (1) Sepsis: Status: Acute Assessment and plan: likely source is UTI/prostate given hx of prostatitis/BPH; Blood cx growing MSSA. Now on cefazolin TTE w/o vegetations. Given the rapid growth of the culture and the presence of a pacemaker, a AMBIKA is indicated. Arrange once he is off norepinephrine. Repeat blood cultures obtained. On levophed. Now titrating down after receiving 2 boluses of 250ml NS. PICC placed. echocardiogram shows an EF of 50%. Does have mild global hypokinesis. WBC count improved. . (2) Elevated troponin level: Status: Acute Assessment and plan: Type II demand ischemia in setting of sepsis Peaked at 1002 and then decreased to 861. Type II demand ischemia. No segmental wall motion abnormality. Continue home apixaban 5mg BID. Cont ASA and Plavix. (3) UTI (urinary tract infection): Status: Acute Assessment and plan: Cx growing gram positive dana, mixed; prelim. as above. no obstructive features on CT scan; will have nursing place hensley (4) Atrial fibrillation and flutter: Assessment and plan: monitor; continue his BB as his BP will allow, continue apixaban (5) BPH associated with nocturia: Assessment and plan: Hensley catheter in place. Initiated flomax. (6) Cardiac pacemaker: Assessment and plan: Appears to be functioning properly. See EKG. (7) Cardiomyopathy: Assessment and plan: MIld global hypokinesis with EF of 50%. (8) Coronary artery disease: Assessment and plan: Cont Plavix, ASA and BB. (9) Rhabdomyolysis: Status: Acute Assessment and plan: CK 1265> 2066 > 1686. Improved renal function. Encourage po intake. (10) Discharge planning issues: Status: Acute Assessment and plan: MSSA growing in both initial blood culture bottles. Repeat pending. Planning home with , on IV antibiotic/cefazoline. (11) MSSA bacteremia: Status: Acute Assessment and plan: As above. Subjective Subjective Patient reports: no new complaints and afebrile; denies nausea, vomiting or shortness of breath Exam Narrative Exam Narrative: Gen: alert, conversant. NAD. Lying in bed. Neck supple nontender no JVD Lungs clear. distant breath sounds. Heart RRR, no murmur Abdomen soft nontender nondistended normal bowel sounds Lower extremity without peripheral cyanosis or edema Neuro exam no focal motor deficits no focal sensory deficits. No facial asymmetry dysarthric speech Objective Last Vital Signs Temp 36.9 C 12/19/22 11:25 Pulse 71 12/19/22 13:31 Resp 27 H 12/19/22 13:31 BP 123/51 L 12/19/22 13:31 Pulse Ox 90 L 12/19/22 13:31 Laboratory Results - last 24 hr 12/17/22 12/18/22 12/18/22 17:00 17:00 23:30 WBC RBC Hgb Hct MCV MCH MCHC RDW Plt Count MPV Immature Gran % Neutrophils % Lymphocytes % Monocytes % Eosinophils % Basophils % Nucleated RBC % Absolute Neutrophils Absolute Lymphocytes Absolute Monocytes Absolute Eosinophils Absolute Basophils APTT 59.7 H 58.6 H VBG Lactate Sodium Potassium Chloride Carbon Dioxide Anion Gap BUN Creatinine Est GFR (CKD-EPI 2020) Glucose Calcium Magnesium Urine Legionella Ag Negative 12/19/22 12/19/22 12/19/22 05:35 05:50 05:50 WBC RBC Hgb Hct MCV MCH MCHC RDW Plt Count MPV Immature Gran % Neutrophils % Lymphocytes % Monocytes % Eosinophils % Basophils % Nucleated RBC % Absolute Neutrophils Absolute Lymphocytes Absolute Monocytes Absolute Eosinophils Absolute Basophils APTT VBG Lactate 1.0 Sodium 138 Potassium 3.6 Chloride 105 Carbon Dioxide 23.9 Anion Gap 9.1 BUN 20 H Creatinine 1.2 Est GFR (CKD-EPI 2020) 62.29 Glucose 115 H Calcium 8.0 L Magnesium Cancelled 1.6 L Urine Legionella Ag 12/19/22 12/19/22 05:50 05:50 WBC 10.02 RBC 3.13 L Hgb 11.0 L Hct 31.7 L MCV 101 H MCH 35.1 H MCHC 34.7 RDW 13.9 Plt Count 109 L MPV 8.9 Immature Gran % 0.5 Neutrophils % 76.5 Lymphocytes % 10.8 Monocytes % 11.4 Eosinophils % 0.6 Basophils % 0.2 Nucleated RBC % 0.0 Absolute Neutrophils 7.67 H Absolute Lymphocytes 1.08 L Absolute Monocytes 1.14 H Absolute Eosinophils 0.06 Absolute Basophils 0.02 APTT 56.6 H VBG Lactate Sodium Potassium Chloride Carbon Dioxide Anion Gap BUN Creatinine Est GFR (CKD-EPI 2020) Glucose Calcium Magnesium Urine Legionella Ag PAWSS Have you Been Recently Intoxicated or Drunk Within the Last 30 days?: No Have you Ever Experienced Previous Episodes of Alcohol Withdrawal?: No Have you ever Experienced Withdrawal Seizures?: No Have you ever Experienced Delirium Tremens(DT)s?: No Have you ever undergone Alcohol Rehabilitation Treatment (i.e, inpt ot outpatient treatment programs)?: No Have you ever Experienced Blackouts?: No Have you ever Combined Alcohol with other Downers within the last 90 days?: No Have you ever Combined Alcohol with any other Substance of Abuse during the last 90 days?: No Positive Blood Alcohol level on Presentation? [PCS.BAL]: No Evidence of Increased Autonomic Activity (i.e. HR>120, tremor, sweating, agitation, nausea)?: No Result: 0 Time Spent with Patient Time Spent with Patient: 35-49 minutes Time was spent: preparing to see the patient(eg.review tests), ordering medications,tests, procedures, referring, communicating with other health healthcare risk control consultant, indepentently interpreting results and counseling the patient
[2022-12-19] MEDS: Rosuvastatin 10 MG TAB 40 MG PO (20:47)
[2022-12-19] MEDS: Tamsulosin 0.4 MG CAPCR PO (20:47)
[2022-12-19] MEDS: Zolpidem 5 MG TAB PO (20:48)
[2022-12-19] MEDS: Finasteride 5 MG TAB PO (20:48)
[2022-12-19] MEDS: Norepinephrine in D5W 8 MG/250 ML BAG 2.813 MG IV (20:49)
[2022-12-20] VITALS (54 sets, daily range): BP systolic 89–130; BP diastolic 43–104; PULSE 63–103; RESP 15–36; TEMP 36.6–37.5; O2SAT 89–95
--- NOTE | 2022-12-20 | DI.CT_ITS ---
Exam(s) CT LUMBAR SPINE W EXAM: CT LUMBAR SPINE W CLINICAL HISTORY: mssa bacteremia. TECHNIQUE: Imaging Protocol: Axial computed tomography images with coronal and sagittal reformatted images were created and reviewed CONTRAST MATERIAL: Intravenous: Omnipaque 350 Contrast volume:100 mL COMPARISON: CT CT CHEST PE ABD PELVIS W from 12/17/2022 FINDINGS: Bones: The last intervertebral disc space is designated the L5/S1 level for the numbering purpose of this examination. There are endplate osteophytes at multiple levels and vacuum discs at L3-4, L4-5 a nd L5-S1. Alignment is satisfactory. No fracture is seen. T12-L1: No disc herniations or bulges are present. No significant central spinal canal or neural for aminal stenosis. L1-2: No disc herniations or bulges are present. No significant central spinal canal or neural suly inal stenosis. L2-3: No disc herniations or bulges are present. No significant central spinal canal or neural suly inal stenosis. L3-4: There is a mild diffuse disc bulge. No significant central spinal canal or neural foraminal s tenosis. L4-5: There is a mild diffuse disc bulge. There are degenerative changes of the facets. No signifi cant central spinal canal stenosis. There is mild bilateral neural foraminal stenosis. L5-S1: There is a mild diffuse disc bulge. There are degenerative changes of the facets. No signif icant central spinal canal stenosis. There is mild bilateral neural foraminal stenosis. Soft Tissues: The visualized SI joints and sacrum are will maintained. The paraspinal soft tissues a re unremarkable. Lung bases: Small bilateral pleural effusions and bilateral basilar infiltrates which may represent a telectasis or pneumonia. There is diverticulosis of the sigmoid colon. There is a Byrd catheter in the urinary bladder. Urinary bladder is incompletely distended. There again seen left renal cysts which appears stable. No follow-up is recommended. There is a 3.2 cm infrarenal abdominal aortic an eurysm. This is unchanged. No suspicious enhancement is seen. IMPRESSION: 1. No suspicious enhancement or findings to suggest diskitis, abscess or osteomyelitis. 2. Multilevel degenerative changes resulting in neural foraminal stenosis particularly at L4-5 and L5 -S1. 3. Small bilateral pleural effusions and bilateral basilar infiltrates which may represent atelectasi s or pneumonia. 4. Stable 3.2 cm infrarenal abdominal aortic aneurysm. RADIATION DOSE DELIVERED: 464.29mGy.cm Total DLP DATA REPOSITORY: All CT scans at this facility are submitted to the National Radiology Data Registry (NRDR) Dose Index Registry (DIR) with the [employer] [place] [employer] (ACR). RADIATION OPTIMIZATION: All CT scans at this facility use at least one of these dose optimization te chniques: automated exposure control; mA and/or kV adjustment per patient size (includes targeted exa ms where dose is matched to clinical indication); or iterative reconstruction.
[2022-12-20] MEDS: ceFAZolin 2 GM/50 ML BAG IVPB ×3 (01:12→17:56)
--- NOTE | 2022-12-20 06:50 | W.PULMCC ---
General Date of Service Date of service: 12/20/22 Time of Service: 06:50 Reason for Admission to ICU: Septic Shock Assessment and Plan Assessment and plan (1) Rhabdomyolysis: Status: Acute (2) UTI (urinary tract infection): Status: Acute (3) Septic shock: Status: Acute (4) Cardiogenic shock: Status: Acute (5) Atrial fibrillation and flutter: (6) NSTEMI (non-ST elevated myocardial infarction): Status: Acute (7) CURT (acute kidney injury): Status: Acute (8) Lactic acidosis: Status: Acute (9) Leukocytosis: Status: Acute (10) Anemia: Status: Chronic (11) Thrombocytopenia: Status: Chronic (12) Bacteremia: Status: Acute (13) Emphysema lung: Status: Acute (14) Respiratory failure with hypoxia: Status: Acute (15) Systolic heart failure: Assessment and plan: This is a 77 yo admitted for shock. He is growing MSSA in urine and blood and does need a AMBIKA. He was requiring Levophed to maintain blood pressures but I was able to stop this today. He has been able to be stewarded from an antibiotic perspective to cefazolin. He does seem to be clinically improving. Recommendations Pulmonary: Hypoxic respiratory failure - supplemental O2 as needed for sats >88% Emphysema - albuterol prn Cardiac: Mixed Septic and Cardiogenic Shock - weaned off of pressors this morning - hold bisoprolol NSTEMI, type II - troponin have plateaued - likely due to shock/bacteremia and demand A. Fib - on Eliquis Renal: Rhabdomyolysis with CURT, improved - CURT improved and CK decreasing Lactic acidosis - improved I&O: Intake & Output 12/17/22 12/18/22 12/19/22 12/20/22 23:59 23:59 23:59 23:59 Intake Total 3098.875 / 3098.875 3029.960 / 3073.085 1912.358 / 1933.031 112.019 / 112.019 Output Total 550 / 550 2930 / 3505 3350 / 3350 950 / 950 Balance 2548.875 / 2548.875 99.960 / -431.915 -1437.642 / -1416.969 -837.981 / -837.981 Weight 57.3 kg 63.9 kg 62.5 kg Daily Fluid Goal:: even GI Nutrition: OK for diet Date of Last Bowel Movement: 12/19/22 Infectious Disease: MSSA bacteremia - formal echo to assess for endocarditis, pacer lead veg - continue cefazolin - repeat blood cultures daily until cleared - pateint needs AMBIKA given pacer presence MSSA UTI - abx as above - no obstruction or pyelo on imaging Hematologic: Anemia - possible due to infection vs iatrogenic - stable Leukocytosis, improved - due to infection Thrombocytopenia - likely due to infection - stable Neurologic: No acute concerns Endocrine: No acute concerns Lines: [place] PIV Prophylaxis: on Eliquis no GI ppx needed Code Status: Resuscitation Status Full Code Subjective Critical and life-threatening events over the past 24 hours: Joshua is feeling a bit better. He is bacteremic with MSSA and is on cefazolin Hospitalist is attempting to transfer for AMBIKA given pacer lead prescence Exam Narrative Exam Narrative: Gen: NAD, normal respiratory effort, well-nourished HENT: PERRL, nasal turbinates normal without erythema or inflammation, moist oral mucosa, Mallampati 2, No LAD or JVD Chest: No respiratory distress, normal appearance of chest, clear to auscultation bilaterally, no crackles or wheezes, normal inspiratory effort Heart: regular rate and rhythym, no murmurs, rubs or gallops Abdomen: Non-distended, soft, non tender Extremities: No clubbing, edema, cyanosis, rashes Neuro: AAOx3 , non focal Psych: cooperative, appropriate mental affect Most Recent VS/Results Last Vital Signs Temp 36.8 C 12/20/22 00:00 Pulse 69 12/20/22 05:31 Resp 24 12/20/22 05:31 BP 123/52 L 12/20/22 05:31 Pulse Ox 91 L 12/20/22 05:31 Laboratory Results - last 24 hr 12/17/22 12/17/22 14:20 17:00 Urine Legionella Ag Negative Ur Strep pneumoniae Ag Negative Review of Systems All systems reviewed & are unremarkable except as noted in HPI and below Time spent with patient Time spent in Critical Care: 35 Time spent in Critical care included: Chart review, Documenting critically ill care, Time at immediate bedside and Discussing critically ill care with other medical staff Multi-Disciplinary Checklist Lines/Tubes CENTRAL LINE: no ARTERIAL LINE: no [place]: yes, [place] Day#: 3 ENDOTRACHEAL TUBE: no ICU Maintenance GLUCOSE 140-180mg/dL: yes NUTRITION AT GOAL: yes PRESSURE ULCER: no RESTRAINTS: no ANTIBIOTICS(if yes, consider Stewardship): Yes Social Issues FAMILY UPDATED: no, Reason/Intervention: defer to patient/hospitalist PT/OT: no, Reason/Intervention: not appropriate at this time - recommend this tomorrow if he remains off pressors GOALS/DISPOSITION/MANUAL CONTROL AUGER PRESS OPERATOR: yes CODE STATUS: Full Prophylaxis DVT PROPHYLAXIS: yes GI PROPHYLAXIS: no
[2022-12-20] MEDS: MAGNESIUM SULFATE 2 GM/50 ML BAG IVPB (08:00)
[2022-12-20] MEDS: Aspirin E.C. 81 MG TABEC PO (08:08)
[2022-12-20] MEDS: Apixaban 5 MG TAB PO ×2 (08:08→21:15)
[2022-12-20] MEDS: Fluticasone NASAL SPRAY 16 GM BTL NS (08:09)
--- NOTE | 2022-12-20 08:35 | CMPROGNOTE_ITS ---
- If Service Date Differs Date of service: 12/20/22 Time of Service: 08:35 Care Management Progress Note S/O:Joshua was sitting up on the side of the bed when CM met with him. He had a lot of company earlier in the day and admitted that he was tired. He informed CM that he feels that it is almost impossible to nap in the hospital. Either someone comes to see him or he can't fall asleep. Overall, Joshua stated that he is feeling good. No word from [facility] yet as to when/if they will be able to schedule the AMBIKA. In addition to the original 4 blood culture bottles that grew MSSA, one out of two bottles drawn yesterday is growing gram positive cocci as well. Joshua remains afebrile and his WBC has returned to normal. CM continues to follow. A: Joshua is a 77 year old man admitted on 12/17/22 with sepsis P:Anticipate Joshua will be discharged home when medically cleared. 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 He and his family have expressed a preference for home infusions if possible. He will follow up with his community providers and plan of care as prescribed and transport with family. CM will continue to support Joshua and assess for discharge planning concerns.
--- NOTE | 2022-12-20 08:58 | PHA.REVIEW2 ---
Pharmacy Admission Review - Admission Clinical Review (Last Reviewed 12/17/22 @ 14:14 by Arya Loza MD) MSSA bacteremia (Acute) Discharge planning issues (Acute) Respiratory failure with hypoxia (Acute) Emphysema lung (Acute) Bacteremia (Acute) Leukocytosis (Acute) Lactic acidosis (Acute) CURT (acute kidney injury) (Acute) NSTEMI (non-ST elevated myocardial infarction) (Acute) Cardiogenic shock (Acute) Septic shock (Acute) Rhabdomyolysis (Acute) UTI (urinary tract infection) (Acute) Sepsis (Acute) Elevated troponin level (Acute) codeine Adverse Reaction (Intermediate, Verified 12/17/22 06:40) Headache ezetimibe [From Zetia] Adverse Reaction (Intermediate, Verified 12/17/22 06:40) myalgia metoprolol Adverse Reaction (Intermediate, Verified 12/17/22 06:40) cough Resuscitation Status Full Code Height 5 ft 8 in Weight 62.5 kg - Comments Comments/Follow Ups: MSSA bacteremia - abx have been deescalated from ceftriaxone + vanco (started on 12/17/22) to cefazolin 2gm q8h; will need a AMBIKA once off norepi (has pacemaker) - Renal Dosing Renal Dosing: BUN 20 mg/dL (7-18) H 12/19/22 05:50 Creatinine 1.2 mg/dL (0.70-1.30) 12/19/22 05:50 Medications needing adjustments: Reviewed List of meds needing interventions: eCrCl 45 ml/min, all orders dosed appropriately - Anticoagulation Anticoagulation: Hgb 11.0 g/dL (13.5-17.5) L 12/19/22 05:50 Hct 31.7 % (40.0-50.0) L 12/19/22 05:50 Plt Count 109 10^3/uL (130-400) L 12/19/22 05:50 Creatinine 1.2 mg/dL (0.70-1.30) 12/19/22 05:50 Therapeutic Anticoagulation: Reviewed Medications: Apixaban - Opiate Usage Evaluate Pain Scale/Pains Meds: N/A - Relevant Labs Sodium 138 mmol/L (136-145) 12/19/22 05:50 Potassium 3.6 mmol/L (3.5-5.1) 12/19/22 05:50 Chloride 105 mmol/L (98-107) 12/19/22 05:50 Magnesium 1.6 mg/dL (1.8-2.4) L 12/19/22 05:50 Electrolytes, C-Reactive P, ESR: Reviewed (2 gram IV mag infused this am + magox 400mg PO daily scheduled) - DM Control DM Control: Glucose 115 mg/dL (74-106) H 12/19/22 05:50 DM Control: N/A - Cardiac Review Cardiac Review: Troponin I 861 ng/L (<or=60) H* 12/18/22 09:00 BP, HR, EF%: Reviewed (norepi gtt continues -- weaning, fluid boluses given, bisoprolol on hold; EF 50%) - Qtc Review If Elevated, List meds needing intervention: QTc 453 on admission - IV to PO Switch IV Medications: Reviewed - Home Meds Home Med List reviewed: Reviewed Relevent Home Meds Not ordered & why?: not ordered: lisinopril - Current meds Current Medication Order Review: Reviewed
[2022-12-20] MEDS: Lactated Ringers 1,000 ML 80 ML IV (09:37)
[2022-12-20] MEDS: Lactated Ringers 500 ML IV (10:30)
[2022-12-20 11:06] LABS: Lactate 1.3 mmol/L (0.6-1.4)
[2022-12-20 11:47] LABS: NT-proBNP 6292 pg/mL (<300)
[2022-12-20] MEDS: Normal Saline - Diluent 50 ML VIAL IJ (15:05)
[2022-12-20] MEDS: Normal Saline Flush 10 ML SYR IVP ×2 (15:05→17:56)
[2022-12-20] MEDS: Omnipaque 350 MG/ML 500 ML BTL-Imaging package IJ (15:06)
--- NOTE | 2022-12-20 17:24 | PGE_ITS ---
Date of Service Date of service: 12/20/22 Time of Service: 17:24 Assessment and Plan Assessment and plan (1) Sepsis: Status: Acute Assessment and plan: likely source is UTI; Blood cx growing MSSA. Now on cefazolin TTE w/o vegetations. Given the rapid growth of the culture and the presence of a pacemaker, a AMBIKA is indicated. Now off norepinephrine. Repeat blood cultures with 1 of 2 bottles growing gram + cocci. Has PICC. echocardiogram shows an EF of 50%. Does have mild global hypokinesis. WBC count improved. Obtaining prior authorization for AMBIKA. Scheduled at [facility] on 01/02/23. . (2) Elevated troponin level: Status: Acute Assessment and plan: Type II demand ischemia in setting of sepsis Peaked at 1002 and then decreased to 861. Type II demand ischemia. No segmental wall motion abnormality. Continue home apixaban 5mg BID. Cont ASA and Plavix. (3) UTI (urinary tract infection): Status: Acute Assessment and plan: Cx growing gram positive dana, mixed; prelim. as above. no obstructive features on CT scan. Has hensley; will d/c. (4) Atrial fibrillation and flutter: Assessment and plan: monitor; continue his BB as his BP will allow, continue apixaban (5) BPH associated with nocturia: Assessment and plan: discontinuing hensley cath. On flomax. (6) Cardiac pacemaker: Assessment and plan: Appears to be functioning properly. See EKG. (7) Cardiomyopathy: Assessment and plan: MIld global hypokinesis with EF of 50%. (8) Coronary artery disease: Assessment and plan: Cont ASA and BB. (9) Rhabdomyolysis: Status: Acute Assessment and plan: CK 1265> 2066 > 1686. Improved renal function. Encourage po intake. (10) Discharge planning issues: Status: Acute Assessment and plan: MSSA growing in both initial blood culture bottles. Repeat shows gram + cocci in 1 of 2 bottles. Planning home with , on IV antibiotic/cefazoline. (11) MSSA bacteremia: Status: Acute Assessment and plan: As above. CT with contrast of lumbar spine w/o evidence of osteomyelitis, discitis. 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 Subjective Subjective Patient reports: no new complaints, tolerating a regular diet and afebrile; denies nausea, vomiting or shortness of breath Exam Narrative Exam Narrative: Gen: alert, conversant. NAD. Lying in bed. Lungs clear. distant breath sounds. Heart RRR; paced. no murmur Abdomen soft nontender nondistended normal bowel sounds Lower extremity without peripheral cyanosis or edema Neuro exam no focal motor deficits no focal sensory deficits. No facial asymmetry dysarthric speech Objective Last Vital Signs Temp 36.6 C 12/20/22 15:25 Pulse 69 12/20/22 16:00 Resp 26 H 12/20/22 16:01 BP 116/57 L 12/20/22 16:00 Pulse Ox 93 12/20/22 16:01 Laboratory Results - last 24 hr 12/20/22 12/20/22 11:00 11:00 VBG Lactate 1.3 NT-Pro-B Natriuret Pep 6292 H PAWSS Have you Been Recently Intoxicated or Drunk Within the Last 30 days?: No Have you Ever Experienced Previous Episodes of Alcohol Withdrawal?: No Have you ever Experienced Withdrawal Seizures?: No Have you ever Experienced Delirium Tremens(DT)s?: No Have you ever undergone Alcohol Rehabilitation Treatment (i.e, inpt ot outpatient treatment programs)?: No Have you ever Experienced Blackouts?: No Have you ever Combined Alcohol with other Downers within the last 90 days?: No Have you ever Combined Alcohol with any other Substance of Abuse during the last 90 days?: No Positive Blood Alcohol level on Presentation? [PCS.BAL]: No Evidence of Increased Autonomic Activity (i.e. HR>120, tremor, sweating, agitation, nausea)?: No Result: 0 Time Spent with Patient Time Spent with Patient: 25-34 minutes Time was spent: preparing to see the patient(eg.review tests), obtaining and/or reviewing separately otained hiistory, referring, communicating with other health primary health care nurse, indepentently interpreting results and counseling the patient
[2022-12-20] MEDS: Rosuvastatin 10 MG TAB 40 MG PO (21:14)
[2022-12-20] MEDS: Zolpidem 5 MG TAB PO (21:14)
[2022-12-20] MEDS: Tamsulosin 0.4 MG CAPCR PO (21:14)
[2022-12-20] MEDS: Magnesium Oxide 400 MG TAB PO (21:14)
[2022-12-20] MEDS: Finasteride 5 MG TAB PO (21:15)
[2022-12-20] MEDS: Acetaminophen 325 MG TAB PO (21:15)
[2022-12-21] MEDS: ceFAZolin 2 GM/50 ML BAG IVPB ×3 (02:07→17:43)
[2022-12-21 07:19] LABS: Abs Immature Grans 0.05 10^3/uL (0.0-0.06); Absolute Basophil Count 0.02 10^3/uL (0.0-0.2); Absolute Eosinophil Count 0.11 10^3/uL (0.0-0.7); Absolute Lymphocyte Count 1.27 10^3/uL (1.2-3.4); Absolute Monocyte Count 0.97 10^3/uL (0.1-0.8); Absolute Neutrophil Count 4.87 10^3/uL (1.2-6.7); Basophils % 0.3; Eosinophils % 1.5; HCT 33.6 % (40.0-50.0); HGB 11.8 g/dL (13.5-17.5); Immature Grans % 0.7; Lymphocytes % 17.4; MCH 35.4 pg (27.0-33.0); MCHC 35.1 % (32.0-36.0); MCV 101 fL (80-95); MPV 9.7 fL (8.0-11.0); Monocytes % 13.3; Neutrophils % 66.8; Platelet Count 149 10^3/uL (130-400); RBC 3.33 10^6/uL (4.36-5.78); RDW 13.2 % (11.8-14.1); RDW-SD 49.5 fL; WBC 7.29 10^3/uL (4.4-10.8)
--- NOTE | 2022-12-21 07:36 | NUR.NOTE ---
Education Documentation Audit ICU Nursing Note:
[2022-12-21 07:59] VITALS: BP 115/67; PULSE 77; RESP 20; TEMP 36.1; O2SAT 95
[2022-12-21] MEDS: Aspirin E.C. 81 MG TABEC PO (08:05)
[2022-12-21] MEDS: Apixaban 5 MG TAB PO ×2 (08:05→20:34)
[2022-12-21] MEDS: Lisinopril 10 MG TAB PO (08:05)
[2022-12-21] MEDS: Bisoprolol 5 MG TAB PO (08:05)
--- NOTE | 2022-12-21 08:30 | CMPROGNOTE_ITS ---
- If Service Date Differs Date of service: 12/21/22 Time of Service: 08:30 Care Management Progress Note S/O:Joshua was sitting up in a chair visiting with his when CM met with him. CM informed them that a referral has been sent to [facility] for home infusion of IV antibiotics. CM explained that he would need 6 weeks of antibiotics three times a day. Joshua stated that he was not sure he wanted to do this at home. His daughters had previously indicated that was the family's preference. Kira noted that it would most likely fall to her to administer the medication and she expressed concerns about that. CM explained that [facility] would review the referral and communicate the cost based on his insurance. CM encouraged Josuha and Kira, his , to discuss the options with their family and suggested another discussion take place on Saturday. The only alternative to home infusion would be for Joshua to transition to SB-1 status and to remain at [facility] for the duration of therapy. Joshua verbalized that he did not consider that a good option, but will consider it. Joshua has now had 4 sets of blood cultures grow out S. Aureus. Two more sets were drawn this morning and results should be available within the next 48 hours. A: Joshua is a 77 year old man admitted on 12/17/22 with sepsis P:Anticipate Joshua will be discharged home when medically cleared. He will likely need skilled nursing IV antibiotics. He and his family have expressed a preference for home infusions if possible. If that is not possible, he will need to trasnsition to SB-1 for the duration of therapy. He will follow up with his community providers and plan of care as prescribed and transport with family. CM will continue to support Joshua and assess for discharge planning concerns.
[2022-12-21 15:12] VITALS: BP 107/55; PULSE 76; RESP 17; TEMP 36.6; O2SAT 96
--- NOTE | 2022-12-21 15:26 | PGE_ITS ---
Date of Service Date of service: 12/21/22 Time of Service: 15:26 Assessment and Plan Assessment and plan (1) Sepsis: Status: Acute Assessment and plan: Resolved See MSSA bacteremia . (2) Elevated troponin level: Status: Acute Assessment and plan: Type II demand ischemia in setting of sepsis Peaked at 1002 and then decreased to 861. Type II demand ischemia. No segmental wall motion abnormality. Continue home apixaban 5mg BID. Cont ASA and Plavix. (3) UTI (urinary tract infection): Status: Acute Assessment and plan: Cx growing gram positive dana, mixed; prelim. as above. no obstructive features on CT scan. Has hensley; will d/c. (4) Atrial fibrillation and flutter: Assessment and plan: Controlled. Cont BB and Apixiban. (5) BPH associated with nocturia: Assessment and plan: discontinued hensley cath. On flomax. (6) Cardiac pacemaker: Assessment and plan: Appears to be functioning properly. See EKG. Concerned that he could have infected pacer wires. See MSSA bacteremia. (7) Cardiomyopathy: Assessment and plan: MIld global hypokinesis with EF of 50%. (8) Coronary artery disease: Assessment and plan: Cont ASA and BB. No CP (9) Rhabdomyolysis: Status: Acute Assessment and plan: CK 1265> 2066 > 1686. Improved renal function. Encourage po intake. (10) Discharge planning issues: Status: Acute Assessment and plan: Now planning transfer to [facility] on Saturday. Questionable whether he returns to [facility] or not. If he does; continue with orders and authorization for IV antibiotics. (11) MSSA bacteremia: Status: Acute Assessment and plan: likely source is UTI; Blood cx growing MSSA in initial blood culture bottles and 48 hour repeat culture bottles. Blood cultures drawn today 12/21/22. Now on cefazolin TTE w/o vegetations. Given the rapid growth of the culture and the presence of a pacemaker, a AMBIKA is indicated. Now off norepinephrine. Has PICC. WBC count normalized. Spoke with [employer] production control expediter Dr Hathaway; he requests pt to be transferred to [facility] for AMBIKA (planning to obtain on Saturday) and for removal of pacemaker. Plan is to transfer on Saturday; attending physician, cardiology service, Dr Ernst. Subjective Subjective Patient reports: no new complaints, feels better, tolerating a regular diet and afebrile; denies nausea, vomiting or shortness of breath Exam Narrative Exam Narrative: Gen: alert, conversant. NAD. Sitting in chair. Lungs clear. distant breath sounds. Heart RRR; paced. no murmur Abdomen soft nontender nondistended normal bowel sounds Lower extremity without peripheral cyanosis or edema Neuro exam no focal motor deficits no focal sensory deficits. No facial asymmetry dysarthric speech Objective Last Vital Signs Temp 36.6 C 12/21/22 15:12 Pulse 76 12/21/22 15:12 Resp 17 12/21/22 15:12 BP 107/55 L 12/21/22 15:12 Pulse Ox 96 12/21/22 15:12 Laboratory Results - last 24 hr 12/21/22 06:33 WBC 7.29 RBC 3.33 L Hgb 11.8 L Hct 33.6 L MCV 101 H MCH 35.4 H MCHC 35.1 RDW 13.2 Plt Count 149 MPV 9.7 Immature Gran % 0.7 Neutrophils % 66.8 Lymphocytes % 17.4 Monocytes % 13.3 Eosinophils % 1.5 Basophils % 0.3 Nucleated RBC % 0.0 Absolute Neutrophils 4.87 Absolute Lymphocytes 1.27 Absolute Monocytes 0.97 H Absolute Eosinophils 0.11 Absolute Basophils 0.02 PAWSS Have you Been Recently Intoxicated or Drunk Within the Last 30 days?: No Have you Ever Experienced Previous Episodes of Alcohol Withdrawal?: No Have you ever Experienced Withdrawal Seizures?: No Have you ever Experienced Delirium Tremens(DT)s?: No Have you ever undergone Alcohol Rehabilitation Treatment (i.e, inpt ot outpatient treatment programs)?: No Have you ever Experienced Blackouts?: No Have you ever Combined Alcohol with other Downers within the last 90 days?: No Have you ever Combined Alcohol with any other Substance of Abuse during the last 90 days?: No Positive Blood Alcohol level on Presentation? [PCS.BAL]: No Evidence of Increased Autonomic Activity (i.e. HR>120, tremor, sweating, agitation, nausea)?: No Result: 0 Time Spent with Patient Time Spent with Patient: 35-49 minutes Time was spent: preparing to see the patient(eg.review tests), ordering medications,tests, procedures, referring, communicating with other health health careers instructor, indepentently interpreting results and counseling the patient
[2022-12-21] MEDS: Rosuvastatin 10 MG TAB 40 MG PO (20:34)
[2022-12-21] MEDS: Finasteride 5 MG TAB PO (20:34)
[2022-12-21] MEDS: Tamsulosin 0.4 MG CAPCR PO (20:34)
[2022-12-21] MEDS: Magnesium Oxide 400 MG TAB PO (20:34)
[2022-12-21 22:47] VITALS: BP 112/70; PULSE 106; RESP 17; TEMP 36.7; O2SAT 96
[2022-12-21 23:17] VITALS: BP 115/54; PULSE 72; RESP 18; TEMP 36.8; O2SAT 92
[2022-12-22] MEDS: ceFAZolin 2 GM/50 ML BAG IVPB ×3 (02:20→18:03)
[2022-12-22 05:51] VITALS: BP 115/72; PULSE 73; RESP 18; TEMP 36.7; O2SAT 91
[2022-12-22 07:53] LABS: Magnesium 1.9 mg/dL (1.8-2.4)
[2022-12-22] MEDS: Apixaban 5 MG TAB PO ×2 (08:07→20:43)
[2022-12-22] MEDS: Bisoprolol 5 MG TAB PO (08:07)
[2022-12-22] MEDS: Aspirin E.C. 81 MG TABEC PO (08:07)
[2022-12-22 08:08] VITALS: BP 125/49; PULSE 70; RESP 20; TEMP 36.7; O2SAT 92
[2022-12-22 08:08] LABS: ALT 40 U/L (16-63); AST 63 U/L (15-37); Albumin 2.4 g/dL (3.4-5.0); Alkaline Phosphatase 56 U/L (46-116); Anion Gap 9.7 mmol/L (3-11); BUN 15 mg/dL (7-18); Bilirubin, Total 0.5 mg/dL (0.2-1.0); CO2 24.3 mmol/L (21.0-32.0); CREATININE 1.3 mg/dL (0.70-1.30); Calcium 8.5 mg/dL (8.5-10.1); Chloride 103 mmol/L (98-107); Estimated GFR 56.58 (mL/min/1.73m2); Glucose 103 mg/dL (74-106); Potassium 4.1 mmol/L (3.5-5.1); Sodium 137 mmol/L (136-145); Total Protein 6.3 g/dL (6.4-8.2)
[2022-12-22] MEDS: Lisinopril 10 MG TAB PO (08:08)
[2022-12-22] MEDS: Lactobacillus Acidophilus CAP 1 CAP PO ×2 (14:44→20:43)
[2022-12-22 15:32] VITALS: BP 113/63; PULSE 67; RESP 21; TEMP 36.6; O2SAT 95
--- NOTE | 2022-12-22 20:03 | PGE_ITS ---
Date of Service Date of service: 12/22/22 Time of Service: 20:03 Assessment and Plan Assessment and plan (1) Sepsis: Status: Acute Assessment and plan: Resolved See MSSA bacteremia . (2) Elevated troponin level: Status: Acute Assessment and plan: Type II demand ischemia in setting of sepsis Peaked at 1002 and then decreased to 861. Type II demand ischemia. No segmental wall motion abnormality. Continue home apixaban 5mg BID. Cont ASA and Plavix. (3) UTI (urinary tract infection): Status: Acute Assessment and plan: Cx growing gram positive dana, mixed; prelim. as above. no obstructive features on CT scan. Has hensley; will d/c. (4) Atrial fibrillation and flutter: Assessment and plan: Controlled. Cont BB and Apixiban. (5) BPH associated with nocturia: Assessment and plan: discontinued hensley cath. On flomax. (6) Cardiac pacemaker: Assessment and plan: Appears to be functioning properly. See EKG. Concerned that he could have infected pacer wires. See MSSA bacteremia. (7) Cardiomyopathy: Assessment and plan: MIld global hypokinesis with EF of 50%. (8) Coronary artery disease: Assessment and plan: Cont ASA and BB. No CP (9) Rhabdomyolysis: Status: Acute Assessment and plan: CK 1265> 2066 > 1686. Improved renal function. Encourage po intake. (10) Discharge planning issues: Status: Acute Assessment and plan: Now planning transfer to [facility] on Saturday. Questionable whether he returns to [facility] or not. If he does; continue with orders and authorization for IV antibiotics. (11) MSSA bacteremia: Status: Acute Assessment and plan: likely source is UTI; Blood cx growing MSSA in initial blood culture bottles and 48 hour repeat culture bottles. 3rd set of Blood cultures drawn 12/21/22; negative to date. Now on cefazolin TTE w/o vegetations. Given the rapid growth of the culture and the presence of a pacemaker, a AMBIKA is indicated. Now off norepinephrine. Has PICC. WBC count normalized. Spoke with [employer] lottery sales clerk Dr Hathaway; he requests pt to be transferred to [facility] for AMBIKA (planning to obtain on Saturday) and for removal of pacemaker. Plan is to transfer on Saturday; attending physician, cardiology service, Dr Ernst. Subjective Subjective Patient reports: no new complaints, tolerating a regular diet and afebrile; denies shortness of breath Exam Narrative Exam Narrative: Gen: alert, conversant. NAD. Sitting in chair. Lungs clear. distant breath sounds. Heart RRR; paced. no murmur Abdomen soft nontender nondistended normal bowel sounds Lower extremity without peripheral cyanosis or edema Neuro exam no focal motor deficits no focal sensory deficits. No facial asymmetry dysarthric speech Objective Last Vital Signs Temp 36.6 C 12/22/22 15:32 Pulse 67 12/22/22 15:32 Resp 21 12/22/22 15:32 BP 113/63 12/22/22 15:32 Pulse Ox 95 12/22/22 15:32 Laboratory Results - last 24 hr 12/22/22 12/22/22 05:50 05:50 Sodium 137 Potassium 4.1 Chloride 103 Carbon Dioxide 24.3 Anion Gap 9.7 BUN 15 Creatinine 1.3 Est GFR (CKD-EPI 2020) 56.58 Glucose 103 Calcium 8.5 Magnesium 1.9 Total Bilirubin 0.5 AST 63 H ALT 40 Alkaline Phosphatase 56 Total Protein 6.3 L Albumin 2.4 L PAWSS Have you Been Recently Intoxicated or Drunk Within the Last 30 days?: No Have you Ever Experienced Previous Episodes of Alcohol Withdrawal?: No Have you ever Experienced Withdrawal Seizures?: No Have you ever Experienced Delirium Tremens(DT)s?: No Have you ever undergone Alcohol Rehabilitation Treatment (i.e, inpt ot outpatient treatment programs)?: No Have you ever Experienced Blackouts?: No Have you ever Combined Alcohol with other Downers within the last 90 days?: No Have you ever Combined Alcohol with any other Substance of Abuse during the last 90 days?: No Positive Blood Alcohol level on Presentation? [PCS.BAL]: No Evidence of Increased Autonomic Activity (i.e. HR>120, tremor, sweating, agitation, nausea)?: No Result: 0 Time Spent with Patient Time Spent with Patient: <25 minutes Time was spent: preparing to see the patient(eg.review tests), ordering medications,tests, procedures and referring, communicating with other health primary care coordinator
[2022-12-22 20:30] VITALS: O2SAT 94
[2022-12-22] MEDS: Rosuvastatin 10 MG TAB 40 MG PO (20:42)
[2022-12-22] MEDS: Tamsulosin 0.4 MG CAPCR PO (20:42)
[2022-12-22] MEDS: Finasteride 5 MG TAB PO (20:43)
[2022-12-22] MEDS: Magnesium Oxide 400 MG TAB PO (20:43)
[2022-12-22] MEDS: Zolpidem 5 MG TAB PO (22:09)
[2022-12-22 22:40] VITALS: BP 116/75; PULSE 69; RESP 21; TEMP 36.7; O2SAT 94
[2022-12-23] MEDS: ceFAZolin 2 GM/50 ML BAG IVPB (01:50)
[2022-12-23] MEDS: Normal Saline Flush 10 ML SYR IVP ×2 (01:51→08:17)
[2022-12-23 02:01] VITALS: O2SAT 94
[2022-12-23 06:39] VITALS: BP 106/66; PULSE 72; RESP 21; TEMP 36; O2SAT 93
[2022-12-23] MEDS: Aspirin E.C. 81 MG TABEC PO (08:16)
[2022-12-23] MEDS: Lisinopril 10 MG TAB PO (08:16)
[2022-12-23] MEDS: Lactobacillus Acidophilus CAP 1 CAP PO (08:16)
[2022-12-23] MEDS: Bisoprolol 5 MG TAB PO (08:16)
[2022-12-23] MEDS: Fluticasone NASAL SPRAY 16 GM BTL NS (08:16)
[2022-12-23] MEDS: Apixaban 5 MG TAB PO (08:16)
--- NOTE | 2022-12-23 08:56 | DSE_ITS ---
Date of service: 12/23/22 Time of Service: 08:56 DS: Diagnosis Discharge Diagnosis (1) Sepsis: Status: Acute Asessment and Plan: + UA with blood cultures positive for gram + cocci in less than 12 hours after presentation. Urine grew aerococcus urinae. Blood borne pathogen identified as MSSA. Rocephin and vancomycin administered; subsequent antibiotic coverage with cefazolin once blood culture pathogen identified. Second set of blood cultures 48 hours after first remained positive. Third set of blood cultures negative after 24 hours; 48 hour read on the cultures pending at time of transfer. Initially required vasopressor / norepinephrine. Weaned-off and now stable BP w/o support. Remaines afebrile with normal WBC count. (2) Elevated troponin level: Status: Acute Asessment and Plan: NSTEMI; demand ischemia. (3) UTI (urinary tract infection): Status: Acute Asessment and Plan: As above. (4) Atrial fibrillation and flutter: Asessment and Plan: Controlled ventricular rate on bisoprolol. Anticoagulated with Apixiban. (5) BPH associated with nocturia: Asessment and Plan: Previously with hensley catheter; now removed w/o urinary difficulties. On Flomax. (6) Cardiac pacemaker: Asessment and Plan: Concerned about potential infected wires secondary to MSSA bacteremia. Transferring to [facility] for removal as well as AMBIKA for heart valve evaluation. (7) Cardiomyopathy: Asessment and Plan: Echocardiogram on 12/18/22: Normal left ventricular wall thickness and chamber size.? EF is 50%.? There is mild global hypokinesis Left atrium appears normal in size Right atrium and right ventricle are not well visualized.? Device lead is noted in the right heart Mildly thickened mitral leaflets with moderate regurgitation Normal tricuspid valve with mild regurgitation.? Estimated right ventricular size systolic pressure is 48 mmHg Normal aortic valve? with mild regurgitation (8) Coronary artery disease: Asessment and Plan: On ASA and BB. (9) Rhabdomyolysis: Status: Acute Asessment and Plan: Tx with IV hydration. Mild CURT on admission with a creatinine of 1.5. Creatinine now 1.3. (10) MSSA bacteremia: Status: Acute Asessment and Plan: Rapid growth of MSSA on initial blood culture and second set of cultures contnued to be positive. This warrants AMBIKA to r/o valvular vegetations an the need to remove pacemaker (potential nidus of infection). Transfer to [facility] where these services are available. Discharge Plan Disposition Patient Disposition: Transfer-Acute Inpatient Care Specific Acute Inpt Facility: [facility] Condition: Stable Discharge Details Reason For Visit: Sepsis, UTI and NSTEMI Admit Date/Time: 12/17/22 11:44 Admit Provider: Arya Loza Attending Provider: Arya Loza Primary Care Provider: Real Horn Hospital Course Hospital Course: 77 yr old male smoker w/ CAD, s/p CABG x 3 vessel 1989 and subsequent PCI of L. Cx, IN 2004 following VF/VT arrest, afib on Eliquis , s/p pacemaker (for CHB and slow afib 05/09/22 @ [facility] ,COPD (not formally diagnosed but emphysema on CT), B PH, PAD w/ LSFA stenting in 2008, patient was brought by EMS to ED at [facility] after falling down at home. Was on the floor for about 3 hours. Prolonged time for EMS to respond d/t remote location in [place] w/ trees down across roads. On arrival to the ED, he was hypotensive (92/69), febrile 38 C, and hypoxemic requiring oxygen at 4 lpm. Workup in the ED included labs (CMP, UA, CBC, CK, troponin I. Chemistries were remarkable for elevated BUn 35 and creatinine 1.5, low Mg 1.5, normal potassium, sodium and AG and normal transaminases. CK 1265, troponin I 287, 361. Lactate 3.0. CBC 16,000 w/ left shift, Hb 12.2 gm, HCT 35.3, MCV 102, RDW 14, platelets 128,000. EKG? ventricular paced rhythm at [address] scan head w/ no acute findings (bilateral decreased attentuation in white matter c/w small vessel ischemic disease), CT chest, abdomen, pelvis: chest: no PE, no infiltrates or effusion, coronary calcification and stents; emphysema lungs; abdomen: 3.3 cm x 3.1 cm infrarenal AAA increased from 2.7 x 2.8 cm from 07/08/19. But no acute process. See Diagnosis Home Meds and New Rx's Prescriptions: No Action rosuvastatin [Crestor] 40 mg tablet 40 mg PO DAILY Qty: 90 4RF bisoprolol fumarate 5 mg tablet 5 mg PO DAILY Qty: 90 3RF aspirin 81 mg tablet,delayed release (DR/EC) 81 mg PO DAILY mupirocin 2 % ointment 1 applic topical TID Qty: 15 0RF fluticasone propionate 50 mcg/actuation spray,suspension 2 spray intranasal DAILY Qty: 9.9 5RF Rx Instructions: administer into each nostril finasteride 5 mg tablet 5 mg PO HS Qty: 90 3RF Eliquis 5 mg tablet 5 mg PO bid Qty: 180 3RF zolpidem 5 mg tablet 5 mg PO QHS PRN (Reason: sleep) Qty: 30 5RF lisinopril 10 mg tablet 10 mg PO DAILY 90 Days Qty: 90 3RF coenzyme Q10 [Co Q-10] 100 MG capsule 100 mg PO DAILY Discharge Instructions Activity:: Activity as Tolerated Equipment/Supplies:: No Equipment Needed Diet:: Heart Healthy DS: Summary Time Spent with Patient providing and/or coordinating discharge services: Greater than 30 minutes Status at Discharge Functional status at discharge: independent ambulation Overall status at discharge: patient is progressing back to baseline Mental Status: mental status grossly normal Speech and Movement: speech and movement normal Mood: congruent mood Affect: normal affect Exam Narrative Exam Narrative: Gen: alert, conversant. NAD. Sitting in chair. Lungs clear. distant breath sounds. Heart RRR; paced. no murmur Abdomen soft nontender nondistended normal bowel sounds Lower extremity without peripheral cyanosis or edema Neuro exam no focal motor deficits no focal sensory deficits. No facial asymmetry dysarthric speech Psych Mental Status: mental status grossly normal Speech and Movement: speech and movement normal Mood: congruent mood Affect: normal affect DS: Data Vitals/I&O Vitals and I&O: Vital Signs Temperature 36.0 C L 12/23/22 06:39 Temperature Source Tympanic 12/23/22 06:39 Pulse 72 12/23/22 06:39 Pulse Rhythm Irregular 12/23/22 08:08 Pulse 72 12/20/22 16:01 Respiratory Rate 21 12/23/22 06:39 Respiratory Effort Normal, Non-Labored 12/23/22 08:08 Respiratory Depth Normal 12/23/22 08:08 Respiratory Pattern Normal 12/23/22 08:08 Blood Pressure 106/66 12/23/22 06:39 Blood Pressure Mean 71 12/20/22 16:00 Blood Pressure Position Supine 12/20/22 15:25 Pulse Oximetry 93 12/23/22 06:39 Oxygen Delivery Method Room Air 12/23/22 06:39 Oxygen Flow Rate 0 12/23/22 06:39 Pain Level 0 12/23/22 08:15 Comment RN notified 12/19/22 04:05 Intake & Output 12/22/22 12/22/22 12/23/22 11:59 23:59 11:59 Intake Total 340 / 630 290 / 630 Output Total 650 / 1050 400 / 1050 1120 / 1120 Balance -310 / -420 -110 / -420 -1120 / -1120 Weight 60.5 kg 60.6 kg Intake: IV 100 / 150 50 / 150 Oral 240 / 480 240 / 480 Output: Urine 650 / 1050 400 / 1050 1120 / 1120 Other: Urine Color Yellow Yellow Yellow Urine Appearance Clear Clear Clear Urine Odor Normal Normal Normal Comment voided independently Stool Size Moderate Stool Characteristics Soft Liquid Voiding Methods Urinal Urinal Urinal Data Completed and Pending Labs on day of discharge: Labs from last 24 hours 12/22/22 09:15 M. pneumoniae Source Pending M. pneumoniae (PCR) Pending Preliminary micro results at discharge 12/22/22 09:15 Sputum Culture - Preliminary Sputum Normal Sylvia 12/21/22 06:33 Blood Culture - Preliminary Blood NO GROWTH 24 HOURS 12/21/22 06:42 Blood Culture - Preliminary Blood NO GROWTH 24 HOURS 12/19/22 08:45 Blood Culture - Preliminary Blood Staphylococcus Aureus PFSH All Active Problems (Updated 12/19/22 @ 16:48 by Luis Almeida MD) MSSA bacteremia (Acute) Discharge planning issues (Acute) Respiratory failure with hypoxia (Acute) Emphysema lung (Acute) Bacteremia (Acute) Thrombocytopenia (Chronic) Anemia (Chronic) Leukocytosis (Acute) Lactic acidosis (Acute) CURT (acute kidney injury) (Acute) NSTEMI (non-ST elevated myocardial infarction) (Acute) Cardiogenic shock (Acute) Septic shock (Acute) Rhabdomyolysis (Acute) UTI (urinary tract infection) (Acute) Sepsis (Acute) Elevated troponin level (Acute) Presence of cardiac resynchronization therapy pacemaker (FIRST OFFICER-P) (Acute) Epistaxis (Acute) Vasomotor rhinitis (Acute) Prostatitis (Acute) Non-cardiac chest pain (Acute) Right rotator cuff tear (Acute) Depo-Medrol injection: 09/19/2021 Biceps tendinitis of right upper extremity (Acute) Arthritis of right glenohumeral joint (Acute) Left testicular pain (Acute) Shoulder pain, right (Acute) Hematuria (Acute) Cough (Acute) Telangiectasia (Acute 04/09/18) Pharyngeal Sinus bradycardia (Acute 06/17/17) S/P coronary artery bypass graft x 3 (Acute 05/28/90) 2004 stent 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 (Acute 07/02/16) Atypical chest pain (Acute) Bradycardia (Acute) Medical History Atrial fibrillation and flutter BPH associated with nocturia Cardiac pacemaker at [facility] 05/09/22 for FIRST OFFICER RH Followed by [facility] Cardiomyopathy Coronary artery disease Coronary atherosclerosis Essential hypertension Insomnia Systolic heart failure (02/20/17) EF 45% on ECHO from 01/29/17 Tobacco abuse Tubular adenoma 11/13/05-[facility] 03/22/10--CV Surgical History Appendectomy Circumcision (10/27/97) Coronary Artery Bypass Gaft (CABG) (08/20/89) Extraction of cataract 12/15/13-LEFT Repair of inguinal hernia (05/06/08) B/L Stent placement Family History Mother Personal history of malignant neoplasm Father Stroke Sister Personal history of malignant neoplasm Brother No problems noted. Social History Smoking/Tobacco Use Status: Current every day Tobacco Type: cigarettes Smoking packs per day: 1.5 Smoking cigarettes per day: 30.0 and pipe Quit status: has quit before Second Hand Exposure: Yes Counseling given: patient declined Smoking risk assessment performed?: Yes Alcohol Intake: current Alcohol Intake frequency: a few times a month Alcohol type: beer Drug use: Never Substance use type: does not use Household members: spouse Housing: house Communication Needs: Hard of Hearing Do you need help understanding health information?: Rarely Pets and animals: Yes Pets and animals: dog(s) Sexually active: No Do you think of yourself as: straight/heterosexual Current gender identity: male What is your relationship status?: How often do you talk on the phone with friends or family?: three or more times per week How often do you attend jainism or christian services?: decline to answer Do you belong to any clubs or organized social groups?: no Panel score (0-1 are the most socially isolated patients): 2 What type of physical activity do you participate in: weight lifting Duration: 15-30 minutes/day Frequency: 5-6 times per week Richa/Anglican: Christianity Special richa needs: No Seatbelt use: always Helmet use: No Drive intox or ride w/intox compactor driver: No Do you feel safe at home: Yes Do you feel safe in your relationship?: Yes Time Spent with Patient Time Spent with Patient: 45-69 minutes Time was spent: preparing to see the patient(eg.review tests), referring, commun icating with other health career center director, indepentently interpreting results and care coordination
--- NOTE | 2022-12-23 09:51 | NUR.NOTE ---
Nursing Note: tammi butcher rn at [facility]
--- NOTE | 2022-12-23 13:18 | PDOC.CMDIS ---
- If Service Date Differs Date of service: 12/23/22 Time of Service: 13:18 LACE Index Scoring Tool - Questions: Length of Stay (in days): 4 - 6 Acuity (Admit via E.D.?): Yes Comorbidities: Previous M.I., Congestive Heart Failure E.D. Visits: 1 - Answers: Total Score: 11 Risk of Readmission: High Risk Care Management Discharge Reason for Hospitalization: sepsis Discharge Plan: Joshua was transferred to [facility]. He will have a AMBIKA and, possibly, surgery to remove his pacemaker. He was transported via EMS ([facility]) coordinated by the nursing primer supervisor. Patient/Family Education Needs: Review of discharge instructions, limitations, follow up plan, discuss Ask Me Three Services Needed at Discharge: Transportation - Disposition Disposition: [facility]
[2022-12-26 16:21] LABS: Mycoplasma Pneumoniae PCR Negative; Specimen source sputum
== END 2022-12-23 10:02 | disposition short-term general hospital (02) | DRG 871 ==
LOC: ER 12:10 → ICU 13:04 → MS 12-20 21:57
PROVIDERS: Family Medicine; Physician Assistant; Admitting Provider Internal Medicine; Emergency Provider Student in an Organized Health Care Education/Training Program; PCP Family Medicine; Visit Provider Internal Medicine
DX: A41.01 Sepsis due to Methicillin susceptible Staphylococcus aureus (principal); I21.A1 Myocardial infarction type 2; J96.01 Acute respiratory failure with hypoxia; R65.21 Severe sepsis with septic shock; R57.0 Cardiogenic shock; M62.82 Rhabdomyolysis; N17.9 Acute kidney failure, unspecified; I50.20 Unspecified systolic (congestive) heart failure; I48.92 Unspecified atrial flutter; I44.2 Atrioventricular block, complete; I42.9 Cardiomyopathy, unspecified; N39.0 Urinary tract infection, site not specified; D69.6 Thrombocytopenia, unspecified; D64.9 Anemia, unspecified; B95.61 Methicillin susceptible Staphylococcus aureus infection as the cause of diseases classified elsewhere; I48.91 Unspecified atrial fibrillation; N40.1 Benign prostatic hyperplasia with lower urinary tract symptoms; R35.1 Nocturia; Z95.0 Presence of cardiac pacemaker; I25.10 Atherosclerotic heart disease of native coronary artery without angina pectoris; Z79.01 Long term (current) use of anticoagulants; W19.XXXA Unspecified fall, initial encounter; I73.9 Peripheral vascular disease, unspecified; E83.42 Hypomagnesemia; Z95.5 Presence of coronary angioplasty implant and graft; I71.43 Infrarenal abdominal aortic aneurysm, without rupture; I67.9 Cerebrovascular disease, unspecified; G47.00 Insomnia, unspecified; F17.210 Nicotine dependence, cigarettes, uncomplicated; B96.89 Other specified bacterial agents as the cause of diseases classified elsewhere
CPT/HCPCS: 36410; 36415; 71275; 74177; 76604; 80048; 80053; 82550; 82805; 84145; 87040; 87077; 87449; 87637; 93005; 93306; 93308; 96361; 96365; 96366; 96375; 99285; 36600; 70450; 72132; 81003; 81015; 83605; 83735; 83880; 84484; 85025; 85730; 87070; 87086; 87186; 87205; 87581; 87899; 93010; 94667; 94668; 99231; 99232; 99233; 99239; 99291; J0131; J0690; J0696; J3490

== ENCOUNTER 2023-01-16 19:46 | Outpatient (REF) | payer MEDICARE, SELFPAY ==
[2023-01-16 20:01] LABS: Abs Immature Grans 0.01 10^3/uL (0.0-0.06); Absolute Basophil Count 0.02 10^3/uL (0.0-0.2); Absolute Eosinophil Count 0.29 10^3/uL (0.0-0.7); Absolute Lymphocyte Count 0.83 10^3/uL (1.2-3.4); Absolute Monocyte Count 0.98 10^3/uL (0.1-0.8); Absolute Neutrophil Count 3.29 10^3/uL (1.2-6.7); Basophils % 0.4; Eosinophils % 5.4; HCT 33.5 % (40.0-50.0); HGB 11.3 g/dL (13.5-17.5); Immature Grans % 0.2; Lymphocytes % 15.3; MCH 35.4 pg (27.0-33.0); MCHC 33.7 % (32.0-36.0); MCV 105 fL (80-95); MPV 9.5 fL (8.0-11.0); Monocytes % 18.1; Neutrophils % 60.6; Platelet Count 183 10^3/uL (130-400); RBC 3.19 10^6/uL (4.36-5.78); RDW 14.6 % (11.8-14.1); RDW-SD 56.9 fL; WBC 5.42 10^3/uL (4.4-10.8)
[2023-01-16 20:10] LABS: ALT 19 U/L (16-63); AST 21 U/L (15-37); Alkaline Phosphatase 71 U/L (46-116); Anion Gap 8.9 mmol/L (3-11); BUN 25 mg/dL (7-18); Bilirubin, Total 0.2 mg/dL (0.2-1.0); CO2 25.1 mmol/L (21.0-32.0); CREATININE 1.4 mg/dL (0.70-1.30); Calcium 8.2 mg/dL (8.5-10.1); Chloride 104 mmol/L (98-107); Estimated GFR 51.77 (mL/min/1.73m2); Glucose 84 mg/dL (74-106); Potassium 4.8 mmol/L (3.5-5.1); Sodium 138 mmol/L (136-145)
== END 2023-01-16 19:47 | disposition home or self-care (01) ==
LOC: LBN 19:46
PROVIDERS: PCP Family Medicine
DX: R78.81 Bacteremia (principal)
CPT/HCPCS: 80053; 85025

== ENCOUNTER 2023-02-24 12:12 | Emergency (ER) | payer MEDICARE, SELFPAY ==
[2023-02-24 12:14] VITALS: BP 113/51; PULSE 58; RESP 16; TEMP 37; O2SAT 99
--- NOTE | 2023-02-24 12:50 | ED.GENADUL_ITS ---
Discharge Plan Disposition Patient Disposition: Home Discharge Details Clinical Impression: Unspecified urethral stricture, male, meatal, Acute urinary retention Primary Care Provider: Real Horn ED Provider: Aiyana Jeong Home Meds and New Rx's Prescriptions: Continued rosuvastatin [Crestor] 40 mg tablet 40 mg PO DAILY Qty: 90 4RF metoprolol succinate 50 mg tablet extended release 24 hr 50 mg PO DAILY Qty: 90 3RF aspirin 81 mg tablet,delayed release (DR/EC) 81 mg PO DAILY mupirocin 2 % ointment 1 applic topical TID Qty: 15 0RF Patient Comments: states not taking fluticasone propionate 50 mcg/actuation spray,suspension 2 spray intranasal DAILY Qty: 9.9 5RF Patient Comments: states not taking Rx Instructions: administer into each nostril finasteride 5 mg tablet 5 mg PO HS Qty: 90 3RF Eliquis 5 mg tablet 5 mg PO bid Qty: 180 3RF zolpidem 5 mg tablet 5 mg PO QHS PRN (Reason: sleep) Qty: 30 5RF folic acid 1 mg tablet 1 mg PO DAILY Qty: 90 0RF losartan 25 mg tablet 25 mg PO DAILY Qty: 90 0RF Discharge Instructions Instructions: Urinary Retention in Men (ED) Additional Instructions: Dr. Espana will call you tomorrow and wants to see you in the office tomorrow. If you do not hear from him by noon then please call the office at [phone]. He will probably attempt to dilate your urethra in the office so that you can pee more easily. Hold the apixaban until after you see and talk to Dr. Espana. Return to ED for any concerns. Discharge Data Discharge Date/Time-TO BE ENTERED AT DEPARTURE: 02/24/23 14:33 Medical Decision Making Nursing had a difficult time catheterizing the patient and asked me to command to see the patient. His meatus was barely open but appeared to be more so anteriorly. A bunch of skin posteriorly was spread out and there was no opening here. The patient did tell me that he pees out the end of his penis where his meatus is. He does not pee backwards. He stated that in the past they needed to catheterize him with a pediatric catheter and an 8 Romanian was obtained. After gentle probing the nurses were able to get the catheter in. Nursing told me they felt like they possibly had broken through a small membrane. The patient tolerated this quite well and clear urine drained out. D/W Dr. Espana from urology and he will see the patient in follow-up on Saturday. He says he has dilators in the office and can fix the stricture there. No antibiotics were given. Medical Records Medical records reviewed: Yes I reviewed the patient's medical records. Lab Data Lab results reviewed: Yes I reviewed the patient's lab results. Lab results narrative: UA has large protein and blood, 20-50 RBCs, 10-20 WBCs, trace leuk esterase. HPI General Date/Time Provider Initiated Documentation: 02/24/23 12:50 . History of Present Illness described as similar to prior episodes, HPI Narrative: This 77-year-old male patient presents with a chief complaint of inability to void since last evening. The patient is accompanied gaited urinary history. He says about 30 years ago he could not pee and had to have his urethra dilated or stricture taken care of. He says he peed normally for couple days but after t hat was not unusual for him to spray in 1 direction or another. He does state that he pees out the end of his penis. States that he has seen Dr. Espana several times over the years and had a cystoscopy. Dr. Espana evidently told him that the pain issue was related to scar tissue. The patient denies abdominal pain and has no fever or chills. He denies pain on urination yesterday, frequency, urgency, or hematuria. Related Data Home Medications Medication Instructions Recorded Confirmed aspirin 81 mg tablet,delayed 81 mg PO DAILY 12/10/18 02/24/23 release mupirocin 2 % topical ointment 1 applic topical TID #15 grams 01/22/22 01/30/23 finasteride 5 mg tablet 5 mg PO HS #90 tabs 04/03/22 02/24/23 apixaban 5 mg tablet (Eliquis) 5 mg PO bid #180 tabs 08/21/22 02/24/23 zolpidem 5 mg tablet 5 mg PO QHS PRN sleep #30 tabs 08/21/22 02/24/23 fluticasone propionate 50 2 spray intranasal DAILY #9.9 grams 09/06/22 01/30/23 mcg/actuation nasal spray,suspension rosuvastatin 40 mg tablet (Crestor) 40 mg PO DAILY #90 tabs 12/11/22 02/24/23 folic acid 1 mg tablet 1 mg PO DAILY #90 tabs 01/04/23 02/24/23 losartan 25 mg tablet 25 mg PO DAILY #90 tabs 01/04/23 02/24/23 metoprolol succinate 50 mg 50 mg PO DAILY #90 tabs 01/30/23 02/24/23 tablet,extended release 24 hr Previous Rx's Medication Instructions Recorded mupirocin 2 % topical ointment 1 applic topical TID #15 grams 01/22/22 finasteride 5 mg tablet 5 mg PO HS #90 tabs 04/03/22 apixaban 5 mg tablet (Eliquis) 5 mg PO bid #180 tabs 08/21/22 zolpidem 5 mg tablet 5 mg PO QHS PRN sleep #30 tabs 08/21/22 fluticasone propionate 50 2 spray intranasal DAILY #9.9 grams 09/06/22 mcg/actuation nasal spray,suspension rosuvastatin 40 mg tablet (Crestor) 40 mg PO DAILY #90 tabs 12/11/22 folic acid 1 mg tablet 1 mg PO DAILY #90 tabs 01/04/23 losartan 25 mg tablet 25 mg PO DAILY #90 tabs 01/04/23 metoprolol succinate 50 mg 50 mg PO DAILY #90 tabs 01/30/23 tablet,extended release 24 hr Allergies Allergy/AdvReac Type Severity Reaction Status Date / Time codeine AdvReac Intermediate Headache Verified 02/24/23 12:18 ezetimibe [From Zetia] AdvReac Intermediate myalgia Verified 02/24/23 12:18 metoprolol AdvReac Intermediate cough Verified 02/24/23 12:18 General Stated Complaint: Urinary EDWAR: 3 Review of Systems Constitutional Constitutional: Denies chills, Denies fever(s), Denies headache(s) and Denies weakness Eyes Eyes: Denies diplopia and Reports other (no redness) ENT Ears, Nose, Mouth, and Throat: Denies otalgia, Denies headache(s), Denies nasal congestion, Denies nasal discharge, Denies neck pain and Denies sore throat Cardiovascular Cardiovascular: Denies chest pain, Denies palpitations and Denies dyspnea Respiratory Respiratory: Denies cough and Denies dyspnea Gastrointestinal Gastrointestinal: Denies abdominal pain, Denies diarrhea, Denies nausea and Denies vomiting Genitourinary Genitourinary: Reports oliguria, Reports difficulty urinating and Denies dysuria Musculoskeletal Musculoskeletal: Denies myalgias, Denies muscle weakness, Denies neck pain, Denies numbness and Reports other (edema) Integumentary/Breasts Skin/Breast: Denies change in pigmentation and Denies rash Neurologic Neurologic: Denies headache(s), Denies numbness and Denies weakness Endocrine Endocrine: Denies palpitations [facility] All Active Problems Unspecified urethral stricture, male, meatal (Acute) Acute urinary retention (Acute) Pruritus (Acute) MSSA bacteremia (Acute) Emphysema lung (Acute) Anemia (Chronic) NSTEMI (non-ST elevated myocardial infarction) (Acute) Presence of cardiac resynchronization therapy pacemaker (MIMEOGRAPHER-P) (Acute) Epistaxis (Acute) Vasomotor rhinitis (Acute) Prostatitis (Acute) Non-cardiac chest pain (Acute) Right rotator cuff tear (Acute) Depo-Medrol injection: 09/19/2021 Biceps tendinitis of right upper extremity (Acute) Arthritis of right glenohumeral joint (Acute) Left testicular pain (Acute) Shoulder pain, right (Acute) Hematuria (Acute) Cough (Acute) Telangiectasia (Acute 04/09/18) Pharyngeal Sinus bradycardia (Acute 06/17/17) S/P coronary artery bypass graft x 3 (Acute 05/28/90) 2004 stent 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 (Acute 07/02/16) Atypical chest pain (Acute) Bradycardia (Acute) Medical History Atrial fibrillation and flutter BPH associated with nocturia Cardiac pacemaker at [facility] [place] 05/09/22 for MIMEOGRAPHER RH Followed by [facility] Cardiomyopathy Coronary artery disease Coronary atherosclerosis Essential hypertension Insomnia Systolic heart failure (02/20/17) EF 45% on ECHO from 01/29/17 Tobacco abuse Tubular adenoma 11/13/05-[facility] 03/22/10--CV Surgical History Appendectomy Circumcision (10/27/97) Coronary Artery Bypass Gaft (CABG) (08/20/89) Extraction of cataract 12/15/13-LEFT Repair of inguinal hernia (05/06/08) B/L Stent placement Family History Mother Personal history of malignant neoplasm Father Stroke Sister Personal history of malignant neoplasm Brother No problems noted. Social History Smoking/Tobacco Use Status: Current every day Tobacco Type: cigarettes Smoking packs per day: 1.5 Smoking cigarettes per day: 30.0 and pipe Quit status: has quit before Second Hand Exposure: Yes Counseling given: patient declined Smoking risk assessment performed?: Yes Alcohol Intake: current Alcohol Intake frequency: a few times a month Alcohol type: beer Drug use: Never Substance use type: does not use Household members: spouse Housing: house Communication Needs: Hard of Hearing Do you need help understanding health information?: Rarely Pets and animals: Yes Pets and animals: dog(s) Sexually active: No Do you think of yourself as: straight/heterosexual Current gender identity: male What is your relationship status?: How often do you talk on the phone with friends or family?: three or more times per week How often do you attend baptism or hindu services?: decline to answer Do you belong to any clubs or organized social groups?: no Panel score (0-1 are the most socially isolated patients): 2 What type of physical activity do you participate in: weight lifting Duration: 15-30 minutes/day Frequency: 5-6 times per week Richa/Restorationism: Anglican Special richa needs: No Seatbelt use: always Helmet use: No Drive intox or ride w/intox driver trainee: No Do you feel safe at home: Yes Do you feel safe in your relationship?: Yes Exam Const General: no acute distress, well developed, well groomed and not in acute distress Nutritional Appearance: well nourished Orientation: alert and oriented x3 HENMT Head: normocephalic and atraumatic Ears: external ears normal Mouth: oropharynx normal and moist mucous membranes Throat: posterior oropharynx normal Eyes Conjunctivae: conjunctivae normal Neck Neck: full ROM and supple Chest Chest: normal inspection of the chest Resp Effort & Inspection: normal respiratory effort Auscultation: clear to auscultation bilaterally Cardio Rate: regular rate Rhythm: regular rhythm Heart Sounds: no murmurs and no rubs GI Inspection: normal to inspection Palpation: soft, nontender and other (non distended) Auscultation: normal bowel sounds Male General Exam: Yes normal external exam and Yes other (Patient's meatus does not open much) Penis: other (Function of skin posteriorly has no opening and it appears normal) Skin General skin exam: no rashes or lesions noted and other (pink, warm, dry) Neuro General: patient alert, patient awake and patient oriented x3 Speech: speech normal Motor: other (REYES) Sensory Exam: no sensory deficits noted Extrem General: normal to inspection, full ROM and pedal edema present Psych Mental Status: mental status grossly normal Speech and Movement: speech and movement normal Affect: normal affect Course Vital Signs Vital signs: Vital Signs Temperature 37 C 02/24/23 12:14 Pulse 58 L 02/24/23 12:14 Respiratory Rate 16 02/24/23 12:14 Blood Pressure 113/51 L 02/24/23 12:14 Pulse Oximetry 99 02/24/23 12:14 Temperature 37 C 02/24/23 12:14 Temperature Source Skin 02/24/23 12:14 Pulse 58 L 02/24/23 12:14 Respiratory Rate 16 02/24/23 12:14 Blood Pressure 113/51 L 02/24/23 12:14 Blood Pressure Position Sitting 02/24/23 12:14 Pulse Oximetry 99 02/24/23 12:14 Oxygen Delivery Method Room Air 02/24/23 12:14 Oxygen Flow Rate 0 02/24/23 12:14 Pain Level 0 02/24/23 12:14
[2023-02-24] MEDS: Lidocaine 2% Jelly 6 ML SYR ×2 (13:34)
--- NOTE | 2023-02-24 13:35 | NUR.NOTE ---
Nursing Note:Referral faxed to [facility] for SaturdayFebruary 25 for hensley placed today, dilation in urology tomorrow. Consulted with Dr. Espana at time of visit.
[2023-02-24 13:48] LABS: Bilirubin Negative (Negative); Blood Large (Negative); Clarity Cloudy (Clear); Glucose Negative (Negative); Ketones Negative (Negative); Leukocyte Esterase Trace (Negative); Nitrite Negative (Negative); Urobilinogen 0.2 mg/dL (Up to 0.2); pH 5.5 (5-8)
[2023-02-24 14:08] LABS: Bacteria Moderate HPF (Negative); C & S Indicated? Yes; Casts Negative LPF (Negative); Crystals Negative HPF (Negative); Epithelial Cells Rare HPF (Negative); Mucus Negative (Negative); RBC 20-50 HPF (0-2)
[2023-02-24 14:12] VITALS: BP 132/80; PULSE 85; RESP 20; TEMP 36.8; O2SAT 99
--- NOTE | 2023-02-24 14:13 | NUR.NOTE ---
Nursing Note:Went over cath care and leg bag with pt. Gave larger bag for overnight if needed.
[2023-02-24 14:29] VITALS: BP 96/46; PULSE 60; RESP 18; TEMP 36.8; O2SAT 91
== END 2023-02-24 14:33 | disposition home or self-care (01) ==
PROVIDERS: Emergency Provider Emergency Medicine; PCP Family Medicine
DX: N35.911 Unspecified urethral stricture, male, meatal (principal); R33.9 Retention of urine, unspecified; R21 Rash and other nonspecific skin eruption; F17.210 Nicotine dependence, cigarettes, uncomplicated; Z79.82 Long term (current) use of aspirin
CPT/HCPCS: 51702; 99283; 81003; 81015; 87086

== ENCOUNTER → 2023-02-28 13:29 | Outpatient (BNVA) | payer MEDICARE, SELFPAY | PROVIDERS: PCP Family Medicine; Referring Provider Family Medicine; Visit Provider Urology | DX: N35.911 Unspecified urethral stricture, male, meatal (principal) | CPT/HCPCS: 99214 ==

== ENCOUNTER 2023-03-07 07:20 | Day surgery (SDC) | payer MEDICARE, SELFPAY ==
[2023-03-07] VITALS (7 sets, daily range): BP systolic 106–130; BP diastolic 57–86; PULSE 53–63; RESP 18–24; TEMP 36.3–36.7; O2SAT 95–99; BMI 19.7
[2023-03-07] MEDS: Lactated Ringers 1,000 ML 80 ML IV (08:01)
--- NOTE | 2023-03-07 08:05 | ANES.PREOP_ITS ---
General Info Date of Service Date Performed: 03/07/23 Height: 5 ft 8 in Weight: 58.8 kg Body Mass Index (BMI): 19.7 Surgical Procedure: Operation Date: 03/07/23 08:40 Proposed Procedure Side Surgeon p Cystoscopy/Urethral Dilation Bryce Espana MD Meds Allergies and Home Medications Allergies Allergy/AdvReac Type Severity Reaction Status Date / Time codeine AdvReac Intermediate Headache Verified 03/07/23 07:39 ezetimibe [From Zetia] AdvReac Intermediate myalgia Verified 03/07/23 07:39 metoprolol AdvReac Intermediate cough Verified 03/07/23 07:39 Home Medication Medication Instructions Recorded aspirin 81 mg tablet,delayed 81 mg PO DAILY 12/10/18 release mupirocin 2 % topical ointment 1 applic topical TID #15 grams 01/22/22 apixaban 5 mg tablet (Eliquis) 5 mg PO bid #180 tabs 08/21/22 fluticasone propionate 50 2 spray intranasal DAILY #9.9 grams 09/06/22 mcg/actuation nasal spray,suspension rosuvastatin 40 mg tablet (Crestor) 40 mg PO DAILY #90 tabs 12/11/22 folic acid 1 mg tablet 1 mg PO DAILY #90 tabs 01/04/23 losartan 25 mg tablet 25 mg PO DAILY #90 tabs 01/04/23 metoprolol succinate 50 mg 50 mg PO DAILY #90 tabs 01/30/23 tablet,extended release 24 hr ciprofloxacin HCl 250 mg tablet 250 mg PO Q12H #14 tabs 02/28/23 finasteride 5 mg tablet (Proscar) 5 mg PO HS 03/07/23 zolpidem 5 mg tablet (Ambien) 5 mg PO QHS PRN sleep 03/07/23 Current Visit Medications: Current Medications Generic Name Dose Route Start Last Admin Trade Name Freq PRN Reason Stop Dose Admin Ringer's Solution 1,000 mls @ 80 mls/hr 03/07/23 06:00 03/07/23 08:01 IV 04/05/23 23:59 80 mls/hr INFUSION EMILY Administration Gentamicin Sulfate 120 mg/ 103 mls @ 206 mls/hr 03/07/23 06:00 Sodium Chloride IVPB 03/07/23 16:00 PREOP EMILY IV Miscellaneous Supplies 1 each 03/07/23 06:00 Iv Access IV 04/05/23 23:59 DIRECTED EMILY Sodium Chloride 0 ml 03/07/23 06:00 Normal Saline Flush 10 Ml Syr IV 04/05/23 23:59 PRN PRN Sodium Chloride 0 ml 03/07/23 06:00 Normal Saline 10 Ml Vial IJ 04/05/23 23:59 DIRECTED PRN Sterile Water 0 ml 03/07/23 06:00 Water,Injection,Sterile 10 Ml Vial IJ 04/05/23 23:59 DIRECTED PRN PFSH Active Problems Active Problems: Problem Status Onset Code Atypical chest pain R07.89 Bradycardia R00.1 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 07/02/16 N99.110 S/P coronary artery bypass graft x 3 05/28/90 Z95.1 Sinus bradycardia 06/17/17 R00.1 Telangiectasia 04/09/18 I78.1 Cough R05 Hematuria R31.9 Shoulder pain, right M25.511 Left testicular pain N50.812 Arthritis of right glenohumeral joint M19.011 Biceps tendinitis of right upper extremity M75.21 Right rotator cuff tear M75.101 Non-cardiac chest pain R07.89 Prostatitis N41.9 Vasomotor rhinitis J30.0 Epistaxis R04.0 Presence of cardiac resynchronization therapy pacemaker ([employer] MEMBER-P) Z95.0 NSTEMI (non-ST elevated myocardial infarction) I21.4 Anemia D64.9 Emphysema lung J43.9 MSSA bacteremia R78.81, B95.61 Pruritus L29.9 Unspecified urethral stricture, male, meatal N35.911 Acute urinary retention R33.8 Medical History Medical History Atrial fibrillation and flutter BPH associated with nocturia Cardiac pacemaker at [facility] [place] 05/09/22 for [employer] MEMBER RH Followed by [facility] [place] Cardiomyopathy Coronary artery disease Coronary atherosclerosis Essential hypertension Insomnia Systolic heart failure (02/20/17) EF 45% on ECHO from 01/29/17 Tobacco abuse Tubular adenoma 11/13/05-CVH 03/22/10--CV Surgical History Surgical History Appendectomy Circumcision (10/27/97) Coronary Artery Bypass Gaft (CABG) (08/20/89) 2015 Extraction of cataract 12/15/13-LEFT Repair of inguinal hernia (05/06/08) B/L Stent placement Tobacco Smoking/Tobacco Use Status: Current every day Tobacco Type: cigarettes Smoking packs per day: 1.5 Smoking cigarettes per day: 30.0 and pipe Second hand exposure: Yes Counseling given: patient declined Alcohol Alcohol Intake: current Alcohol intake frequency: a few times a month Alcohol type: beer Substance Use Substance use: Never Substance use type: does not use Vital Signs and Lab Results Vital Signs Most Recent Vital Signs in EMR: Most Recent Vital Signs Temp Pulse Resp BP Pulse Ox 36.5 C 53 L 20 125/63 98 03/07/23 07:44 03/07/23 07:44 03/07/23 07:44 03/07/23 07:44 03/07/23 07:44 Lab Results Blood Type / Crossmatch: No Data to Display Complete Blood Count: No Data to Display Complete Metabolic Panel: No Data to Display Liver Function Panel: No Data to Display Coagulation Panel: No Data to Display Cardiac Panel: No Data to Display Arterial Blood Gas: No Data to Display Venous Blood Gas: No Data to Display Pancreas Panel: No Data to Display Thyroid Panel: No Data to Display Infectious Disease: No Data to Display Blood Cultures: No Data to Display Toxicology Panel: No Data to Display Imaging and Studies Imaging and Studies Study information below may be from another EMR and interpreted by another provider. Please see original notes in EMR for more complete details. EKG Summary: 01/08: AV paced. Stress Test Summary: 12/03: normal perfusion, abnormal contraction consistent with cardiomyopathy. LVEF 42%. Moderate hypokinesis of the septal wall of the LV. Echocardiogram Summary: 01/08: LVEF 50%, mild golbal hypokinesis. Moderate MR, mild TR. mild AR. 12/25/22 AMBIKA: no evidence of vegetation, LVEF 45% Pulmonary Function Summary: 03/03: mild obstructive airway dz. severe diffusion defect (DLCO 38%). Anesthesia Assessment and Plan Anesthesia History Personal History: No History of Anesthesia Complications Family History: No Family History of Anesthesia Complications Exercise Tolerance Exercise Tolerance: Metabolic Equivalents>4 (states can go up a flight or two of stairs without being too winded. ) Cardiac & Pulmonary Exam Cardiac Exam: Normal S1/S2 Heart Sounds Pulmonary Exam: Clear Bilateral Breath Sounds Implantable Cardiac Device Does patient have a Pacemaker or an ICD?: Yes Device Home Appliances Mechanic:: Micra [id number] Reason for Placement:: [facility] Date of Last Device Interrogation:: 02/16/2023 Airway Exam Known Difficult Airway: No Mallampati Class: 4 Mouth Opening: Narrow (< 3cm) Thyromental Distance: Less than 3 cm Neck Range of Motion: Full ROM and Limited ROM Neck Circumference: Normal Teeth Condition: Removable Dentures/Plates Upper and Edentulous ASA Classification ASA Score: ASA 3 Emergency Case?: No NPO Status NPO Status: NPO Clears >2 hours, Solids >8 hours Anesthesia Plan Resuscitation Status: Full Code Anesthesia Technique: General Anesthesia Airway Planned: LMA Monitors Used: Standard Monitors Preoperative Comments:: 77 yo male for urethral dilation and cysto. Sig PMHx: CAD (CABG 1989, Stent 2004), PVD (LE stentting), [employer] MEMBER/paced, epistaxis, anemia, smoker, Previous Anes: - TURBT, fent/midaz, prop, natural airway, no issues.
--- NOTE | 2023-03-07 08:21 | W.PM.HP.N ---
Date of service: 03/07/23 Time of Service: 08:22 Assessment and Plan Assessment and plan (1) Unspecified urethral stricture, male, meatal: Status: Acute Assessment and plan: We will plan to remove his small urethral catheter, dilate the meatus and place a larger catheter until the dilated meatus heals. Ultimately, a referral to a reconstruction urologist will be done. History of Present Illness History of Present Illness Chief Complaint: Meatal stenosis Narrative: This is a 77-year-old gentleman who has a history of meatal stenosis.? He presented to the emergency department this weekend unable to void.? The staff was able to place an 8 Scottish pediatric catheter.? I had spoken to the emergency department staff and recommended that they leave the 8 Scottish catheter until I have a chance to dilate his urethra. He had some swelling of the penile skin but had a negative urine culture. I started him on an antibiotic to cover staph. In reviewing his records, he had a recent hospitalization for a Staph aureus sepsis.? He had positive blood cultures and ultimately had to have his pacemaker removed and replaced as it was thought that the device itself became infected. Review of Systems Narrative: No fevers or chills Rhinitis. No vision change or dysphasia No diabetes or thyroid dysfunction COPD. No hemoptysis Has pacemaker. No chest pain Loose stools since antibiotic treatment. No nausea, vomiting, hepatitis, ulcers, jaundice No seizures, strokes or peripheral neuropathy Anticoagulated. 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 (Acute 07/02/16) S/P coronary artery bypass graft x 3 (Acute 05/28/90) 2005 stent Sinus bradycardia (Acute 06/17/17) Telangiectasia (Acute 04/09/18) Pharyngeal Cough (Acute) Hematuria (Acute) Shoulder pain, right (Acute) Left testicular pain (Acute) Arthritis of right glenohumeral joint (Acute) Biceps tendinitis of right upper extremity (Acute) Right rotator cuff tear (Acute) Depo-Medrol injection: 09/19/2021 Non-cardiac chest pain (Acute) Prostatitis (Acute) Vasomotor rhinitis (Acute) Epistaxis (Acute) Presence of cardiac resynchronization therapy pacemaker (SORT LINE-P) (Acute) NSTEMI (non-ST elevated myocardial infarction) (Acute) Anemia (Chronic) Emphysema lung (Acute) MSSA bacteremia (Acute) Pruritus (Acute) Unspecified urethral stricture, male, meatal (Acute) Acute urinary retention (Acute) Medical History Atrial fibrillation and flutter BPH associated with nocturia [place] [facility] [place] SORT LINE RH [place] [facility] Cardiomyopathy Coronary artery disease Coronary atherosclerosis Essential hypertension Insomnia Systolic heart failure (02/20/17) EF 45% on ECHO from 01/29/17 Tobacco abuse Tubular adenoma 11/13/05-CVH 03/22/10--CV Surgical History Appendectomy Circumcision (10/27/97) Coronary Artery Bypass Gaft (CABG) (08/20/89) 2014 Extraction of cataract 12/15/13-LEFT Repair of inguinal hernia (05/06/08) B/L Stent placement Family History Mother Personal history of malignant neoplasm Father Stroke Sister Personal history of malignant neoplasm Brother No problems noted. Social History Smoking/Tobacco Use Status: Current every day Tobacco Type: cigarettes Smoking packs per day: 1.5 Smoking cigarettes per day: 30.0 and pipe Quit status: has quit before Second Hand Exposure: Yes Counseling given: patient declined Smoking risk assessment performed?: Yes Alcohol Intake: current Alcohol Intake frequency: a few times a month Alcohol type: beer Drug use: Never Substance use type: does not use Household members: spouse Housing: house Communication Needs: Hard of Hearing Do you need help understanding health information?: Rarely Pets and animals: Yes Pets and animals: dog(s) Sexually active: No Do you think of yourself as: straight/heterosexual Current gender identity: male What is your relationship status?: How often do you talk on the phone with friends or family?: three or more times per week How often do you attend nondenominational or rastafarian services?: decline to answer Do you belong to any clubs or organized social groups?: no Panel score (0-1 are the most socially isolated patients): 2 What type of physical activity do you participate in: weight lifting Duration: 15-30 minutes/day Frequency: 5-6 times per week Richa/Restoration: Roman Catholic Special richa needs: No Seatbelt use: always Helmet use: No Drive intox or ride w/intox transit driver: No Do you feel safe at home: Yes Do you feel safe in your relationship?: Yes Meds Allergies and Home Medications Allergies Allergy/AdvReac Type Severity Reaction Status Date / Time codeine AdvReac Intermediate Headache Verified 03/07/23 07:39 ezetimibe [From Zetia] AdvReac Intermediate myalgia Verified 03/07/23 07:39 metoprolol AdvReac Intermediate cough Verified 03/07/23 07:39 Home Medications Medication Instructions Recorded Confirmed Type aspirin 81 mg tablet,delayed 81 mg PO DAILY 12/10/18 03/06/23 History release mupirocin 2 % topical ointment 1 applic topical TID #15 grams 01/22/22 03/06/23 Rx apixaban 5 mg tablet (Eliquis) 5 mg PO bid #180 tabs 08/21/22 03/07/23 Rx fluticasone propionate 50 2 spray intranasal DAILY #9.9 grams 09/06/22 03/07/23 Rx mcg/actuation nasal spray,suspension rosuvastatin 40 mg tablet (Crestor) 40 mg PO DAILY #90 tabs 12/11/22 03/07/23 Rx folic acid 1 mg tablet 1 mg PO DAILY #90 tabs 01/04/23 03/07/23 Rx losartan 25 mg tablet 25 mg PO DAILY #90 tabs 01/04/23 03/07/23 Rx metoprolol succinate 50 mg 50 mg PO DAILY #90 tabs 01/30/23 03/07/23 Rx tablet,extended release 24 hr ciprofloxacin HCl 250 mg tablet 250 mg PO Q12H #14 tabs 02/28/23 03/07/23 Rx finasteride 5 mg tablet (Proscar) 5 mg PO HS 03/07/23 03/07/23 History zolpidem 5 mg tablet (Ambien) 5 mg PO QHS PRN sleep 03/07/23 03/07/23 History Exam Const General: cooperative Neck Neck: supple Resp Effort & Inspection: normal respiratory effort Auscultation: clear to auscultation bilaterally Cardio Rate: regular rate GI Inspection: normal to inspection Palpation: soft Neuro General: patient alert, patient awake and patient oriented x3 Results Last Vital Signs Temp 36.5 C 03/07/23 07:44 Pulse 53 L 03/07/23 07:44 Resp 20 03/07/23 07:44 BP 125/63 03/07/23 07:44 Pulse Ox 98 03/07/23 07:44 Time Spent Time spent with Patient: <40 minutes Time was spent: other
[2023-03-07] MEDS: GENTAMICIN 120 MG in Normal Saline 100 ML 206 MG IVPB (08:54)
[2023-03-07] MEDS: Lidocaine 2% Jelly 6 ML SYR (09:10)
[2023-03-07] MEDS: Bupivacaine 0.25% Pres-Free 30 ML VIAL (09:21)
--- NOTE | 2023-03-07 09:22 | ROE_ITS ---
Date of service: 03/07/23 Time of Service: 09:23 Operative Note Operative Note DATE OF PROCEDURE: 03/07/23 PRE-OP DIAGNOSIS: Meatal stenosis POST-OP DIAGNOSIS: same PROCEDURE: Urethral dilation, cystoscopy, insert hensley catheter SURGEON: Bryce Espana ANESTHESIA TYPE: Local By Surgeon and General LMA/ETT Refer to Anesthesia Record ESTIMATED BLOOD LOSS: 5 PATHOLOGY: none sent COMPLICATIONS: None Patient was transported to: PACU Patient's condition: stable Implants: 18 Macedonian Councill tipped catheter with 10 cc sterile water in balloon Indications: This is a 77-year-old gentleman who has a history of urethral meatal stenosis. He has had multiple dilations in the past. He recently presented to the emergency department unable to void. The staff was only able to get in the 8 Macedonian catheter through the urethra into the bladder. That catheter remains in place. He presents now for urethral dilation and upsizing of his catheter. Findings: Urethral meatus dilated to size 24 Macedonian No additional urethral strictures (other than the meatus) Procedure Description: The patient was given preoperative antibiotics and brought to the operating room on 03/07/2023. After successful induction of general anesthesia, he was placed in the dorsal lithotomy position. His indwelling catheter was removed. His genitalia was prepped and draped. I then injected 2% lidocaine jelly into the urethral meatus. I passed a Glidewire through the meatus and advanced the wire into the bladder. I then used dilators to that I passed over the wire. We dilated his urethra from the size 10 Macedonian up to 24 Macedonian. Leaving the wire in place, I passed a 22 Macedonian rigid cystoscope down through the urethra and into the bladder. The meatal stenosis lasted only about a centimeter and no additional stenotic areas were identified along the remainder of the urethra. The cystoscope was withdrawn. An 18 Macedonian [place] tip catheter was then passed over the guidewire. The catheter balloon was inflated with 10 cc of sterile water. The guidewire was removed. The catheter was hooked to gravity drainage. The patient tolerated the procedure well. We will plan on leaving his catheter in place for about a week.
--- NOTE | 2023-03-07 09:25 | W.PM.DSUDISC ---
Date of service: 03/07/23 Time of Service: 09:25 Discharge Plan Disposition Patient Disposition: Home Condition: Stable Discharge Details Reason For Visit: Urethral stricture Attending Provider: Bryce sEpana Primary Care Provider: Real Horn Home Meds and New Rx's Prescriptions: No Action rosuvastatin [Crestor] 40 mg tablet 40 mg PO DAILY Qty: 90 4RF metoprolol succinate 50 mg tablet extended release 24 hr 50 mg PO DAILY Qty: 90 3RF ciprofloxacin HCl 250 mg tablet 250 mg PO Q12H Qty: 14 0RF aspirin 81 mg tablet,delayed release (DR/EC) 81 mg PO DAILY mupirocin 2 % ointment 1 applic topical TID Qty: 15 0RF Patient Comments: states not taking fluticasone propionate 50 mcg/actuation spray,suspension 2 spray intranasal DAILY Qty: 9.9 5RF Patient Comments: states not taking Rx Instructions: administer into each nostril Eliquis 5 mg tablet 5 mg PO bid Qty: 180 3RF folic acid 1 mg tablet 1 mg PO DAILY Qty: 90 0RF losartan 25 mg tablet 25 mg PO DAILY Qty: 90 0RF zolpidem [Ambien] 5 mg tablet 5 mg PO QHS PRN (Reason: sleep) finasteride [Proscar] 5 mg tablet 5 mg PO HS Discharge Instructions Additional Instructions: hensley to leg bag followup for catheter removal 1 week followup appt @ 1 month Stand Alone Forms: Anesthesia Discharge InstEliu, Simón Judd (DSU) Activity:: Activity as Tolerated Shower/Bathe:: 24 hours Diet:: As Tolerated Discharge Orders Discharge Orders: Discharge Order (Routine); Ordered 03/07/23 Ordered By: Bryce Espana Discharge Data Discharge Date/Time-TO BE ENTERED AT DEPARTURE: 03/07/23 11:20 DS: Diagnosis Discharge Diagnosis (1) Unspecified urethral stricture, male, meatal: Status: Acute
--- NOTE | 2023-03-07 11:24 | W.ANESPOSTOP ---
Postoperative Evaluation Date, Time and Location Date Performed: 03/07/23 Time Performed: 10:45 Patient Location: Day Surgery Unit Vital Signs Most Recent Imported Vital Signs: Most Recent Vital Signs Temp Pulse Resp BP Pulse Ox 36.3 C L 60 19 130/86 96 03/07/23 10:28 03/07/23 10:28 03/07/23 10:28 03/07/23 10:28 03/07/23 10:28 Pain Score Most Recent Pain Score: Most Recent Pain Score Pain Level 0 03/07/23 10:28 Assessment Mental Status: Awake (Alert & Oriented to Patient Baseline) Airway and Respiratory Function: Patent airway with normal (patient baseline) respiratory exam Cardiovascular Function: Hemodynamically Stable Hydration Status: Adequately Hydrated Nausea & Vomiting: No Nausea or Vomiting Pain: Pain is tolerable per patient Peripheral Nerve Block: Patient did not receive a nerve block
== END 2023-03-07 11:20 | disposition home or self-care (01) ==
PROVIDERS: PCP Family Medicine; Visit Provider Urology
PROC: 0T7D8ZZ Dilation of Urethra, Via Natural or Artificial Opening Endoscopic (ICD-10-PCS; CPT 52281; principal; 2023-03-07 08:30)
DX: N35.911 Unspecified urethral stricture, male, meatal (principal); I48.91 Unspecified atrial fibrillation; Z95.0 Presence of cardiac pacemaker; I50.30 Unspecified diastolic (congestive) heart failure; Z79.01 Long term (current) use of anticoagulants; I11.0 Hypertensive heart disease with heart failure
CPT/HCPCS: 53605; J1580; J2001; J2405

== ENCOUNTER → 2023-03-13 07:49 | Outpatient (BNVA) | payer MEDICARE, SELFPAY | PROVIDERS: PCP Family Medicine; Referring Provider Family Medicine; Visit Provider Nurse Practitioner Gerontology | DX: N99.110 Postprocedural urethral stricture, male, meatal (principal); R31.9 Hematuria, unspecified; Z96.0 Presence of urogenital implants | CPT/HCPCS: 99213 ==

== ENCOUNTER → 2023-04-09 07:52 | Outpatient (BNVA) | payer MEDICARE, SELFPAY | PROVIDERS: PCP Family Medicine; Referring Provider Family Medicine; Visit Provider Nurse Practitioner Gerontology | DX: N99.110 Postprocedural urethral stricture, male, meatal (principal); R31.9 Hematuria, unspecified | CPT/HCPCS: 51798; 99214 ==

== ENCOUNTER → 2023-05-23 12:47 | Outpatient (BNVA) | payer MEDICARE, SELFPAY | PROVIDERS: PCP Family Medicine; Visit Provider Internal Medicine Cardiovascular Disease | DX: I25.10 Atherosclerotic heart disease of native coronary artery without angina pectoris (principal); Z95.0 Presence of cardiac pacemaker; I48.91 Unspecified atrial fibrillation; Z79.01 Long term (current) use of anticoagulants; I48.92 Unspecified atrial flutter; I42.9 Cardiomyopathy, unspecified | CPT/HCPCS: 99214 ==

== ENCOUNTER → 2023-06-05 13:38 | Outpatient (BNVA) | payer MEDICARE, SELFPAY | PROVIDERS: PCP Family Medicine; Referring Provider Family Medicine; Visit Provider Physician Assistant | DX: Z45.018 Encounter for adjustment and management of other part of cardiac pacemaker (principal); D64.9 Anemia, unspecified; R00.1 Bradycardia, unspecified; I42.9 Cardiomyopathy, unspecified | CPT/HCPCS: 93279 ==

== ENCOUNTER 2023-06-18 16:33 | Outpatient (CLI) | payer MEDICARE, SELFPAY ==
[2023-06-18 17:44] LABS: Folate > 20.0 ng/mL (8.6-20.0)
== END 2023-06-18 16:34 | disposition home or self-care (01) ==
LOC: LBO 16:33
PROVIDERS: PCP Family Medicine; Visit Provider Physician Assistant
DX: D64.9 Anemia, unspecified (principal)
CPT/HCPCS: 36415; 82746

== ENCOUNTER → 2023-08-14 13:46 | Outpatient (BNVA) | payer MEDICARE, SELFPAY | PROVIDERS: PCP Family Medicine; Referring Provider Family Medicine; Visit Provider Nurse Practitioner Gerontology | DX: N99.110 Postprocedural urethral stricture, male, meatal (principal); R31.9 Hematuria, unspecified | CPT/HCPCS: 51798; 99213 ==

== ENCOUNTER → 2023-11-13 02:36 | Outpatient (CLI) | payer MEDICARE, SELFPAY ==
--- NOTE | 2023-11-13 14:27 | DI.US_ITS ---
APPROVED REPORT EXAM: Comprehensive 2D, Doppler, and color-flow Echocardiogram Patient Location: Out-Patient Biology Manager: Huma Duron RDCS (AE) Indications: Cardiomyopathy Other Information Study Quality: Adequate. Technically limited study due to body habitus, smoker. Conclusion Normal left ventricular wall thickness and chamber size. Ejection fraction is 55-60%. Septal motion consistent with pacing. Right ventricle is borderline dilated Right ventricular systolic function appears normal Both atria are mildly dilated Device lead noted in the right heart Trileaflet aortic valve with mild regurgitation Normal mitral valve with moderate regurgitation Normal tricuspid valve with moderate regurgitation Wall motion Left Ventricle The left ventricle is normal size. The left ventricular systolic function is normal. The left ventric ular ejection fraction is within the normal range. There is normal left ventricular wall thickness. P aradoxical septal motion consistent with paced rhythm. There is no ventricular septal defect visualiz ed. LVEF is 57%. Right Ventricle Right ventricle is borderline dilated. Right ventricular systolic function is grossly normal. Atria Left atrium is mildly dilated. Right atrium is mildly dilated. The interatrial septum is intact with no evidence for an atrial septal defect. Aortic Valve The aortic valve is normal in structure. Aortic valve is trileaflet. There is no aortic valvular sten osis. Mild aortic regurgitation. Mitral Valve The mitral valve is normal in structure. No evidence of mitral valve stenosis. Moderate mitral regurg itation. Tricuspid Valve The tricuspid valve is normal in structure. There is no tricuspid valve stenosis. Moderate tricuspid regurgitation. The RVSP is 40.4mmHg. Pulmonic Valve Pulmonic valve is not well visualized. There is no pulmonic valvular stenosis. There is no pulmonic v alvular regurgitation. Great Vessels The aortic root is normal in size. Ascending aorta is not well visualized. Aortic arch is normal in c aliber. IVC is normal in size and collapses >50% with inspiration. Pericardium There is no pericardial effusion. 2D Dimensions IVSD d PLAX 0.96 cm M: 0.6-1.2 Ao Root d 3.33 cm M: 3.1 - 3.7 LVPW d PLAX 0.99 cm M: 0.6 - 1.2 LVID d PLAX 5.08 cm M: 4.2 - 5.8 LVDs 3.57 cm M: 2.5 - 4.0 LV EF Teichholz 56.4 % FS 29.68 % LV EDV (Teich) 122.7 mL LV ESV (Teich) 53.4 mL M-Mode TAPSE 1.40 cm (M/F) >1.7 Auto EF LV EDV A4C 85.2 mL LV EDV A2C 123.4 mL LV EDV BP 103.3 mL LV ESV A4C 38.3 mL LV ESV A2C 51.4 mL LV ESV BP 43.9 mL LVEF(%) A4C 55.0 % LVEF(%) A2C 58.3 % LVEF(%) BP 57.5 % LV SV A4C 46.9 ml LV SV A2C 72.0 ml LV SV BP 59.4 ml LV CO A4C 2.8 L/min LV CO A2C 4.6 L/min LV CO BP 3.7 L/min HR A4C 59.98 BPM HR A2C 64.04 BPM LV EDV Index (BP) LA Volume LA Length A4C 5.6 cm LA Length A2C 5.4 cm LA Area A4C s 22.03 cm2 LA Area A2C s 18.00 cm2 LA Vol A4C A-L 74.09 mL LA Vol A2C A-L 50.52 mL LA Vol Biplane A-L 61.8 mL LA Vol/BSA A4C A-L LA Vol/BSA A2C A-L LA Vol/BSA BP A-L 36.4 mL/m2 LA Vol A4C MOD 68.7 mL LA Vol A2C MOD 48.8 mL LA Vol BP MOD 58.3 mL RA Volume RA Area A4C 14.1 cm2 RA ESV A4C (A-L) 36.9mL RA Vol/BSA A4C A-L RA Length A4C 4.6 cm RA ESV A4C (MOD) 35.2mL LV Diastology MV E' medial 0.077 (>0.07 m/s) MV E Vmax 0.86 (0.4-1.3 m/s) MV E/E' MED 11.13 (<14) MV A Vmax 0.30 (0.4-1.3 m/s) MV E' lateral 0.134 (>0.1 m/s) E/A Ratio 2.9 MV E/E' LAT 6.44 (<14) MV E' Average 0.105 m/s MV E/E'(average) 8.16 Aortic Valve AoV Vmax 1.31 m/s LVOT Vmax 0.93 m/s AoV Peak Grad 22.7 mmHg LVOT Peak Grad 3.5 mmHg AoV Area (Vmax) 2.26 cm2 LVOT VTI 0.179 m AoV VTI 0.302 m LVOT Mean Grad 1.6 mmHg AoV Mean Trev. 0.88 m/s LVOT SV 57.02 mL AoV Mean Grad 3.6 mmHg LVOT Diam s 2.00 cm AoV Area (VTI) 1.89 cm2 AV Regurg Peak Gr. 38.45 mmHg Velocity Ratio 0.71 AR Decel Cameron 1.4m/sec2 AR DT 2165 msec AR PHT 628 msec AR Vmax 3.10 m/s Mitral Valve MV DT 219 (160-240 msec) MV Vmax TIPS 1.03 m/s MV Mean Grad 1.2 (<2mmHg) MV VTI 0.287 m Pulmonary Valve PV Vmax 1.02 (0.5-1.5 m/s) RVOT Vmax 0.65 m/s PV Peak Grad 4.2 mmHg RVOT Peak Gr. 1.7 mmHg PV Mean Trev 0.69 m/s RVOT VTI 0.107 m PV Mean Grad 2.1 mmHg RVOT Mean Gr. 0.8 mmHg Tricuspid Valve RA Pressure 3.00 mmHg TR Vmax 3.06 m/s TV S' 0.13 m/s TR Peak Grad 37.4 mmHg RVSP (TR) 40.4 mmHg
== END ==
PROVIDERS: PCP Family Medicine; Visit Provider Physician Assistant
DX: I42.9 Cardiomyopathy, unspecified (principal)
CPT/HCPCS: 93306

== ENCOUNTER → 2023-11-26 10:42 | Outpatient (BNVA) | payer MEDICARE, SELFPAY | PROVIDERS: PCP Family Medicine; Referring Provider Family Medicine; Visit Provider Internal Medicine Cardiovascular Disease | DX: I42.9 Cardiomyopathy, unspecified (principal); Z95.1 Presence of aortocoronary bypass graft; I25.10 Atherosclerotic heart disease of native coronary artery without angina pectoris; I48.91 Unspecified atrial fibrillation; I48.92 Unspecified atrial flutter | CPT/HCPCS: 99213 ==

== ENCOUNTER → 2023-12-04 12:43 | Outpatient (BNVA) | payer MEDICARE, SELFPAY | PROVIDERS: PCP Family Medicine; Referring Provider Family Medicine; Visit Provider Physician Assistant | DX: Z95.0 Presence of cardiac pacemaker (principal); R00.1 Bradycardia, unspecified | CPT/HCPCS: 93279 ==

== ENCOUNTER → 2023-12-04 13:09 | Outpatient (BNVA) | payer MEDICARE, SELFPAY | PROVIDERS: PCP Family Medicine; Referring Provider Family Medicine; Visit Provider Nurse Practitioner Gerontology | DX: N99.110 Postprocedural urethral stricture, male, meatal (principal); R31.9 Hematuria, unspecified | CPT/HCPCS: 51798; 81003; 93279; 99213 ==

== ENCOUNTER 2024-02-18 10:31 | Outpatient (CLI) | payer MEDICARE, SELFPAY ==
--- NOTE | 2024-02-18 09:30 | DI.RAD_ITS ---
Exam(s) XR SHOULDER LT COMPLETE 2+V EXAM: XR SHOULDER LT COMPLETE 2+V CLINICAL HISTORY: LEFT SHOULDER PAIN. TECHNIQUE: 2D digital imaging was performed of the left shoulder. Two images were obtained. Grashe y and axillary views were obtained. COMPARISON: There are no priors for comparison. FINDINGS: BONES: No acute fracture is present. No bony destructive lesion is seen. JOINTS: No dislocation present. There are mild degenerative changes seen at the acromioclavicular roland nt. There is mild superior subluxation of the humeral head relative to the glenoid. SOFT TISSUE: Status post CABG. IMPRESSION: Degenerative changes of the shoulder as described above. DATA REPOSITORY: RADIATION DOSE DELIVERED:
== END 2024-02-18 10:32 | disposition home or self-care (01) ==
LOC: DIORS 10:31
PROVIDERS: PCP Family Medicine; Referring Provider Family Medicine; Visit Provider Student in an Organized Health Care Education/Training Program
DX: M25.512 Pain in left shoulder (principal); M12.812 Other specific arthropathies, not elsewhere classified, left shoulder
CPT/HCPCS: 20610; J1010; 73030

== ENCOUNTER → 2024-03-04 14:51 | Outpatient (BNVA) | payer MEDICARE, SELFPAY | PROVIDERS: PCP Family Medicine; Referring Provider Family Medicine; Visit Provider Nurse Practitioner Gerontology | DX: N99.110 Postprocedural urethral stricture, male, meatal (principal); R31.9 Hematuria, unspecified | CPT/HCPCS: 51798; 99213 ==

== ENCOUNTER → 2024-05-25 10:52 | Outpatient (BNVA) | payer MEDICARE, SELFPAY | PROVIDERS: PCP Family Medicine; Visit Provider Internal Medicine Cardiovascular Disease | DX: I42.9 Cardiomyopathy, unspecified (principal); Z95.1 Presence of aortocoronary bypass graft; I25.10 Atherosclerotic heart disease of native coronary artery without angina pectoris | CPT/HCPCS: 99213 ==

== ENCOUNTER → 2024-11-23 14:22 | Outpatient (BNVA) | payer MEDICARE, SELFPAY | PROVIDERS: PCP Family Medicine; Referring Provider Family Medicine; Visit Provider Registered Nurse | DX: Z79.01 Long term (current) use of anticoagulants (principal); F17.210 Nicotine dependence, cigarettes, uncomplicated; I25.10 Atherosclerotic heart disease of native coronary artery without angina pectoris; I48.91 Unspecified atrial fibrillation; I48.92 Unspecified atrial flutter; Z95.0 Presence of cardiac pacemaker | CPT/HCPCS: 99214 ==

== ENCOUNTER 2024-12-02 09:59 | Outpatient (CLI) | payer MEDICARE, SELFPAY ==
--- NOTE | 2024-12-02 09:45 | RT.EKG_ITS ---
APPROVED REPORT Exam: Resting ECG Reason for Exam: ASCVD, pacemaker Patient Location: O HR:62 bpm ECG Measurements Heart Rate 62 AXIS [place] [id number] P [id number] QRSd 135 QRS 100 QT 443 T -65 QTc 450 Conclusion Ventricular paced rhythm
== END 2024-12-02 10:00 | disposition home or self-care (01) ==
LOC: DI.CARD 10:00
PROVIDERS: PCP Family Medicine; Visit Provider Registered Nurse
DX: I25.10 Atherosclerotic heart disease of native coronary artery without angina pectoris (principal); Z95.0 Presence of cardiac pacemaker; R00.1 Bradycardia, unspecified
CPT/HCPCS: 93010

== ENCOUNTER → 2024-12-02 13:05 | Outpatient (BNVA) | payer MEDICARE, SELFPAY | PROVIDERS: PCP Family Medicine; Referring Provider Family Medicine; Visit Provider Registered Nurse | DX: Z95.810 Presence of automatic (implantable) cardiac defibrillator (principal) | CPT/HCPCS: 93005; 99214 ==

== ENCOUNTER 2025-02-15 02:12 | Outpatient (CLI) | payer MEDICARE, SELFPAY ==
[2025-02-15 12:23] LABS: HCT 34.5 % (40.0-50.0); HGB 11.1 g/dL (13.5-17.5); MCH 31.9 pg (27.0-33.0); MCHC 32.2 % (32.0-36.0); MCV 99 fL (80-95); MPV 9.7 fL (8.0-11.0); Platelet Count 197 10^3/uL (130-400); RBC 3.48 10^6/uL (4.36-5.78); RDW 15.5 % (11.8-14.1); RDW-SD 55.8 fL
[2025-02-15 13:01] LABS: Anion Gap 6.9 mmol/L (3-11); BUN 23 mg/dL (7-18); CO2 27.1 mmol/L (21.0-32.0); CREATININE 1.1 mg/dL (0.70-1.30); Calcium 9.1 mg/dL (8.5-10.1); Chloride 104 mmol/L (98-107); Estimated GFR 68.29 (mL/min/1.73m2); Glucose 107 mg/dL (74-106); Potassium 4.2 mmol/L (3.5-5.1); Sodium 138 mmol/L (136-145); TSH (W/Ref FT4) 4.28 uIU/mL (0.36-3.74)
[2025-02-15 14:00] LABS: FREE T4 1.07 ng/dL (0.76-1.46)
== END 2025-02-15 02:13 | disposition home or self-care (01) ==
LOC: LOS 02:12
PROVIDERS: PCP Family Medicine; Visit Provider Family Medicine
DX: E87.1 Hypo-osmolality and hyponatremia (principal); E03.9 Hypothyroidism, unspecified; R53.83 Other fatigue
CPT/HCPCS: 36415; 80048; 85027; 84439; 84443

== ENCOUNTER → 2025-02-22 14:34 | Outpatient (BNVA) | payer MEDICARE, SELFPAY | PROVIDERS: PCP Family Medicine; Visit Provider Registered Nurse | DX: Z95.1 Presence of aortocoronary bypass graft (principal); Z95.0 Presence of cardiac pacemaker | CPT/HCPCS: 99214 ==

== ENCOUNTER → 2025-03-03 08:51 | Outpatient (BNVA) | payer MEDICARE, SELFPAY | PROVIDERS: PCP Family Medicine; Referring Provider Family Medicine; Visit Provider Student in an Organized Health Care Education/Training Program | DX: M19.011 Primary osteoarthritis, right shoulder (principal); M54.12 Radiculopathy, cervical region | CPT/HCPCS: 99213 ==

== ENCOUNTER → 2025-03-17 12:51 | Outpatient (BNVA) | payer MEDICARE, SELFPAY | PROVIDERS: PCP Family Medicine; Referring Provider Family Medicine; Visit Provider Physician Assistant | DX: M19.011 Primary osteoarthritis, right shoulder (principal); M25.512 Pain in left shoulder | CPT/HCPCS: 20610; J1010 ==

== ENCOUNTER 2025-04-06 15:11 | Outpatient (CLI) | payer MEDICARE, SELFPAY ==
--- NOTE | 2025-04-06 08:15 | DI.US_ITS ---
Exam(s) US CAROTID EXAM: US CAROTID CLINICAL HISTORY: intermittent facial numbness and known vascular,R20.0. TECHNIQUE: Ultrasound carotids performed using grayscale, color-flow, and spectral Doppler imaging. COMPARISON: No exams were available for comparison FINDINGS: RIGHT CAROTID ARTERY: Plaque: Multiple scattered foci of calcific plaque are seen along the common carotid artery. Calcific plaque at the common carotid bulb. Velocity elevation: None. LEFT CAROTID ARTERY: Plaque: Mild scattered foci of calcific plaque along the common carotid artery. Heavy calcific plaque at the left common carotid bulb and proximal internal carotid artery.. Velocity elevation: None. VERTEBRAL ARTERIES: Antegrade flow. IMPRESSION: Calcific plaque at the common carotid bulbs and proximal internal carotid arteries without significant stenosis. Criteria for Carotid Stenosis: Normal: ICA PSV <125 cm/s no plaque or intimal thickening is visible. <50% stenosis: ICA PSV <125 cm/s and plaque or intimal thickening is visible. 50-69% stenosis: ICA PSV is 125-250 cm/s and plaque is visible. >70% stenosis to near occlusion: ICA PSV >250 cm/s with visible plaque and luminal narrowing. DATA REPOSITORY:
== END 2025-04-06 15:31 ==
PROVIDERS: PCP Family Medicine; Visit Provider Family Medicine
DX: R20.0 Anesthesia of skin (principal)
CPT/HCPCS: 93880

== ENCOUNTER 2025-06-14 13:31 | Outpatient (CLI) | payer MEDICARE, SELFPAY ==
--- NOTE | 2025-06-14 13:49 | DI.RAD_ITS ---
Exam(s) XR CHEST 2V PA LATERAL EXAM: XR CHEST 2V PA LATERAL CLINICAL HISTORY: evaluate pathology R06.02 SOB TECHNIQUE: 2D digital imaging was performed of the chest. Two images were obtained. PA and lateral views were obtained. COMPARISON: CR XR ribs BI include chest from 12/10/2018 CR XR RIBS LT W PA LAT CHEST from 08/27/2022 FINDINGS: MEDIASTINUM: Normal. HEART: Normal. The patient is status post CABG. There is a cardiac monitoring device in place. PULMONARY VASCULATURE: Normal. LUNGS: Lungs appear hyperinflated with flattened diaphragms suggesting underlying COPD. PLEURAL SPACE: No pleural effusion or pneumothorax. BONE:Within normal limits for the patient's age. Sternal wires are in place. OTHER FINDINGS:Normal. IMPRESSION: No acute pulmonary findings. DATA REPOSITORY: RADIATION DOSE DELIVERED:
--- NOTE | 2025-06-14 13:49 | DI.RAD_ITS ---
Exam(s) XR LUMBAR SPINE COMPLETE EXAM: XR LUMBAR SPINE COMPLETE CLINICAL HISTORY: eval pathology M54.50 LOW BACK PAIN. TECHNIQUE: 2D digital imaging was performed of the lumbar spine. Five images were obtained. AP, lateral, right oblique, left oblique and L5-S1 spot views were obtained. COMPARISON: No exams were available for comparison FINDINGS: BONES: No fracture or destructive lesion. There are endplate osteophytes throughout the lumbar spine. Degenerative facet arthropathy is seen from L3-4 through L5-S1. DISKS: There is disc space narrowing at L2-3, L3-4, L4-L5 and L5-S1. ALIGNMENT: Lumbar spinal alignment is within normal limits. No spondylolysis or spondylolisthesis. SOFT TISSUE: Atherosclerotic calcification is present. 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 DATA REPOSITORY: RADIATION DOSE DELIVERED:
== END 2025-06-14 13:51 ==
LOC: DI 13:33
PROVIDERS: PCP Family Medicine; Visit Provider Nurse Practitioner Family
DX: M51.360 Other intervertebral disc degeneration, lumbar region with discogenic back pain only (principal); R06.02 Shortness of breath
CPT/HCPCS: 71046; 72110

== ENCOUNTER 2025-06-21 16:12 | Inpatient (IN) | payer MEDICARE, SELFPAY ==
[2025-06-21] VITALS (73 sets, daily range): BP systolic 97–134; BP diastolic 35–114; PULSE 54–94; RESP 13–35; TEMP 36.2–37.1; O2SAT 91–97
--- NOTE | 2025-06-21 16:00 | RT.EKG_ITS ---
APPROVED REPORT Exam: Resting ECG Reason for Exam: weakness Patient Location: E HR:60 bpm ECG Measurements Heart Rate 60 AXIS DE 225 P 0 QRSd 127 QRS 98 QT 477 T -84 QTc 477 Conclusion Ventricular-paced rhythm
[2025-06-21 16:29] LABS: Abs Immature Grans 0.04 10^3/uL (0.0-0.06); HCT 24.4 % (40.0-50.0); HGB 7.6 g/dL (13.5-17.5); Immature Grans % 0.4 %; MCH 29.5 pg (27.0-33.0); MCHC 31.1 % (32.0-36.0); MCV 95 fL (80-95); MPV 9.3 fL (8.0-11.0); Platelet Count 300 10^3/uL (130-400); RBC 2.58 10^6/uL (4.36-5.78); RDW 16.5 % (11.8-14.1); RDW-SD 56.9 fL; WBC 9.79 10^3/uL (4.4-10.8)
--- NOTE | 2025-06-21 16:29 | ED.GENADUL_ITS ---
Discharge Plan Disposition Patient Disposition: Admit to [facility] Condition: Stable Discharge Details Clinical Impression: GI bleeding Admit Date/Time: 06/21/25 19:45 Admit Provider: Rodriguez Estrada Attending Provider: Rodriguez Estrada Primary Care Provider: Real Horn ED Provider: Doug Lemon Discharge Data Discharge Date/Time-TO BE ENTERED AT DEPARTURE: 06/21/25 21:25 HPI General Date/Time Provider Initiated Documentation: 06/21/25 16:19 . HPI Narrative: 79 year-old male presents to ED today by EMS with a chief complaint of weakness for a couple days, black stools for 10 days- drove himself to [facility], where his BP was 70/50s, on arrival he is 110s systolic per EMS. Quality described as generalized weakness, lightheadedness, fatigue, and black/tarry stools, no radiation nausea, vomiting, hematemesis/coffee-ground emesis, fever, chest pain, shortness of breath- states that he cough'd last week and possibly pulled something in his LLQ ABD. States that he hadn't had a good bowel movement in 4-5 days, but then had a good one today and it was very black. Severity is described as moderate to severe for weakness. Palliating factors include nothing specific attempted. Provoking factors include nothing specific. Events leading up to the incident/Associated Symptoms: Patient has not had a colonoscopy in quite some time. Patient is anticoagulated on Eliquis. Related Data Home Medications Medication Instructions Recorded Confirmed aspirin 81 mg tablet,delayed 81 mg PO DAILY 12/10/18 1 08/21/24 release fluticasone propionate 50 2 spray intranasal DAILY #9. 9 grams 09/24/24 06/21/25 mcg/actuation nasal spray,suspension finasteride 5 mg tablet (Proscar) 5 mg PO HS #90 tabs 11/10/24 06/21/25 losartan 25 mg tablet 25 mg PO DAILY #90 tabs 10/1806/21/25 metoprolol succinate 50 mg 50 mg PO DAILY #90 tabs 06/21/25 tablet,extended release 24 hr rosuvastatin 40 mg tablet (Crestor) 40 mg PO DAILY #90 tabs 11/10/24 06/21/25 tamsulosin 0.4 mg capsule (Flomax) 0.4 mg PO QHS #90 c aps 11/10/24 06/21/25 apixaban 5 mg tablet (Eliquis) 5 mg PO bid #180 tabs 05/20/25 06/21/25 zolpidem 5 mg tablet (Ambien) 5 mg PO QHS PRN sleep #3 0 tabs 05/20/25 06/21/25 albuterol sulfate 90 mcg/actuation 2 puff inhalation Q 6H PRN 06/14/25 06/21/25 aerosol inhaler shortness of breath or wheez ing #8.5 grams prednisone 20 mg tablet 40 mg (2 x 20 mg) PO DAILY # 10 tabs 06/14/25 06/21/25 Previous Rx's Medication Instructions Recorded fluticasone propionate 50 2 spray intranasal DAILY #9. 9 grams 09/24/24 mcg/actuation nasal spray,suspension finasteride 5 mg tablet (Proscar) 5 mg PO HS #90 tabs 11/10/24 losartan 25 mg tablet 25 mg PO DAILY #90 tabs 10/18 01/10 metoprolol succinate 50 mg 50 mg PO DAILY #90 tabs tablet,extended release 24 hr rosuvastatin 40 mg tablet (Crestor) 40 mg PO DAILY #90 tabs 11/10/24 tamsulosin 0.4 mg capsule (Flomax) 0.4 mg PO QHS #90 c aps 11/10/24 apixaban 5 mg tablet (Eliquis) 5 mg PO bid #180 tabs 05/20/25 zolpidem 5 mg tablet (Ambien) 5 mg PO QHS PRN sleep #3 0 tabs 05/20/25 albuterol sulfate 90 mcg/actuation 2 puff inhalation Q 6H PRN 06/14/25 aerosol inhaler shortness of breath or wheez ing #8.5 grams prednisone 20 mg tablet 40 mg (2 x 20 mg) PO DAILY # 10 tabs 06/14/25 Allergies Allergy/AdvReac Type Severity Reaction Status Date / Time codeine AdvReac Intermediate Headache Verified 06/14/25 12:00 ezetimibe (From Zetia) AdvReac Intermediate myalgia Verified 06/14/25 12:00 General Stated Complaint: GI Bleed EDWAR: 2 Review of Systems All systems reviewed & are unremarkable except as noted in HPI and below Exam Narrative Exam Narrative: GENERAL APPEARANCE: Frail, toxic, awake and alert, atraumatic, moderate acute distress. SKIN: Warm, pale, dry, intact, without rashes/lesions/ulcerations. HEAD: Normocephalic, atraumatic, normal hair distribution for gender/age. EYES: Pale conjunctiva, no exudates on lids/lashes. ENT: Nares patent, no circumoral cyanosis, no facial swelling NECK: Supple, trachea midline, painless cervical ROM. LUNGS/CHEST: Lungs CTA bilaterally- no rhonchi/rales/wheezes diffusely, non- labored respirations, normal A/P diameter, symmetrical expansion, no chest wall deformity HEART (CV/PV): Regular rate and rhythm without murmur, no peripheral edema, no JVD. ABDOMEN: Soft, non-distended, no guarding, no tenderness. MSK: Normal ROM, no swelling/deformity to bilateral UEs or LEs, moving all extremities without weakness, no cyanosis, spine midline without tenderness, normal curvature. NEURO: Mental Status AAOx4 - alert to person, place, time, events No facial droop, no forehead involvement. Motor: No focal weakness - strength 5/5 in bilateral UEs and LEs, proximal and distal, symmetric. Sensory: sensation intact to light touch globally. Gait NT. PSYCH: euthymic, cooperative, pleasant, appropriate speech Course Vital Signs Vital signs: Vital Signs Temperature 36.4 C 06/21/25 16:16 Pulse 60 06/21/25 16:16 Respiratory Rate 18 06/21/25 16:16 Blood Pressure 97/35 L 06/21/25 16:16 Pulse Oximetry 97 06/21/25 16:16 Temperature 36.4 C 06/21/25 16:16 Temperature Source Tympanic 06/21/25 16:16 Pulse 60 06/21/25 16:16 Respiratory Rate 18 06/21/25 16:16 Blood Pressure 97/35 L 06/21/25 16:16 Pulse Oximetry 97 06/21/25 16:16 Oxygen Delivery Method Room Air 06/21/25 16:16 Oxygen Flow Rate 0 06/21/25 16:16 Medical Decision Making This dictation utilizes [id number] dictation software and may contain unedited grammatical errors. 79 year-old male presents to ED today by EMS with a chief complaint of weakness for a couple days, black stools for 10 days- drove himself to [facility], where his BP was 70/50s, on arrival he is 110s systolic per EMS. Quality described as generalized weakness, lightheadedness, fatigue, and black/tarry sto ols, no radiation nausea, vomiting, hematemesis/coffee-ground emesis, fever, chest pain, shortness of breath- states that he cough'd last week and possibly pulled something in his LLQ ABD. States that he hadn't had a good bowel movement in 4-5 days, but then had a good one today and it was very black. Severity is described as moderate to severe for weakness. Palliating factors include nothing specific attempted. Provoking factors include nothing specific. Events leading up to the incident/Associated Symptoms: Patient has not had a colonoscopy in quite some time. Patients' medical history: Atrial fibrillation and flutter, CAD with pacemaker, CABG X3, BPH, status post appendectomy, status post inguinal hernia repair, emphysema. Family and social history: Lives at home, no recent travel or sick contacts, former smoker. Pertinent exam findings / vital signs include pale conjunctiva, no focal abdominal tenderness with mild LLQ ABD discomfort to palpation, benign cardiopulmonary exam, neuro intact, soft BP on arrival. Differential / pathologies of concern include GI bleeding, anemia of chronic disease, diverticulitis. Diagnostic studies of: -CBC, CMP, lactate, lipase, magnesium, PT/PTT, type and screen, urinalysis, EKG - repeated H&H after EMS' 500mL bolus. - CBC from blood drawn by EMS shows a hemoglobin of 7.6 hematocrit of 24.4, repeat H&H after their 500 mL bolus shows hemoglobin of 6.2 with a hematocrit of 19.6-starting transfusion, paging general surgery for timing of possible colonoscopy - Lactate 2.8 likely in the setting of blood loss - CMP shows elevated creatinine of 1.8 with elevated BUN of 35 acute dehydration, mild elevation of AST only, normal sodium and potassium - Magnesium within normal limits - Lipase within normal limits - PT/PTT/INR benign - Type and screen A POS, with negative Ab screen - EKG shows a ventricular paced rhythm at 60 bpm without ischemic changes, peaked T waves in V2, inverted T waves in leads II to III and aVF, normal QTc - CTA of the ABD/Pelvis shows no extravasation, shows chronic mural thrombus infrarenal AAA- with some changes of contrast from prior scan 2022- 3.3cm aneurysm, recommend referral to vascular surgery in short-interval Interventions of: -500mL IVF NS bolus started by EMS, 2 units pRBCs ordered here, 40mg IVP protonix ordered. -Discussed with Dr. Resendiz @ 0375 - will admit to medicine, consult with jenny matay tomorrow, hold eliquis, no need for reversal. -Consulted hospitalist for admission @ 1852, accepted by Dr. Estrada. ED Course/Assessment/Plan: 79-year-old male presents with about 10 days of worsening fatigue and weakness and black stool previous to this as well, is anticoagulated on Eliquis, has a AAA since at least 2022 as well as extensive cardiac history, his hemoglobin was 7.6 taken by EMS and route and after the 500 mL liter bolus they started at dropped to 6.2 warranting transfusion and admission, general surgery practice is aware, he is not having any profuse bleeding with stools and there is no active extravasation on CTA and his blood pressure is stable here. He was accepted to the hospital by Dr Estrada, given IV Protonix here and is transfusing 2 units of packed red blood cells while boarding in the ER. Disposition of GI Bleeding. Patient verbalized understanding of the plan and return to ED criteria and engaged in shared decision making. Medical Records Medical records reviewed: Yes I reviewed the patient's medical records. Imaging Data Radiologic Study: Attestation: I personally reviewed and interpreted this imaging study as follows: Imaging: CT Scan Radiologist's impression: EXAM: CT ABDOMEN PELVIS CTA CLINICAL HISTORY: GI bleed protocol. TECHNIQUE: Imaging Protocol: Axial computed tomography images with coronal and sagittal reformatted images were created and reviewed CONTRAST MATERIAL: Intravenous: Omnipaque 350 Contrast volume:100 ml Oral: None COMPARISON: CT CT CHEST PE ABD PELVIS W from 12/17/2022 FINDINGS: Lung bases: There are mild increased markings in the right lung base. No pleural effusions. ABDOMEN: Arterial: There is again noted an infrarenal abdominal aortic aneurysm which again exhibits maximum diameter 3.3 cm, unchanged. Common iliac arteries are again noted be heavily calcified but not enlarged. The external iliac arteries are also again noted be heavily calcified but not enlarged. There also no aneurysms of the internal iliac arteries. Of some concern here is the fact that the arterial lumen now occupies the majority of the aneurysm and the amount of mural thrombus has decreased, with intravenous contrast now evident in this part of the lumen. Multilevel stenosis in the iliac arteries are again noted. GI: There is no intraluminal extravasation of injected intravenous contrast to demonstrate site of active GI bleeding. Is no evidence of bowel obstruction, free air, nor abscess. There is no ascites. LIVER: There is a subcapsular lesion in the anterior aspect of the left hepatic lobe which is unchanged in size from 12/17/2022 and is most probably a solitary benign hemangioma in the liver. Liver size is normal. There are no dilated intrahepatic ducts. GALLBLADDER/BILIARY: No obvious gallbladder pathology. CBD is not dilated. PANCREAS: No evidence of pancreatic mass nor dilatation of the pancreatic duct. SPLEEN: Spleen is not enlarged. There are no intrasplenic lesions. Splenic and portal veins are patent. ADRENALS: There are no significant adrenal masses. KIDNEYS: There are 2 benign cysts in left kidney again noted, these measuring 3 and 2.9 cm. These benign cysts do not require further workup. There are no solid renal masses. No calculi nor hydronephrosis. No hydroureter.. LYMPH NODES: There is no retroperitoneal nor para-aortic adenopathy. No obvious mesenteric masses. ABDOMINAL WALL: There is again noted evidence of previous lower anterior abdominal wall inguinal hernia repair at the pelvic level. No abnormal collections nor masses in this region. GI: There is no evidence of bowel obstruction, free air, nor abscess. PELVIS: LYMPH NODES: There is no intrapelvic nor inguinal adenopathy. GI: No evidence of appendicitis.There is extensive sigmoid diverticulosis. No evidence of obvious acute diverticulitis. URINARY BLADDER: Bladder is mildly distended. Otherwise unremarkable. Pelvic ureters are not dilated. REPRODUCTIVE: Prostate size is upper normal. Seminal vesicles unremarkable. OSSEOUS: No significant osseous lesions. No fractures. Multilevel chronic degenerative disc disease noted. IMPRESSION: 1. There is no active intraluminal extravasation of injected IV contrast demonstrated on this study to suggest the site of GI bleeding. 2. Again noted is an infrarenal abdominal aortic aneurysm. Although the maximum diameter is still 3.3 cm, the injected contrast in the lumen now feels part of the aneurysm which was previously in habit by mural thrombus. The mural thrombus is significantly less prevalent at this level on the present study. This may indicate that there is higher propensity for rupture when compared to the prior CT scan of 12/17/2022, despite absence of increased in size of the aneurysm. There is also an element of chronic dissection at the level of the aneurysm. Recommend referral to vascular surgery. 3. Stable benign-appearing left hepatic lobe lesion which is probably a small cavernous hemangioma. 4. There is evidence of previous bilateral inguinal hernia repair. Report called by myself to ER provider 06/21/2025 at 6:30 p.m. Lab Data Lab results reviewed: Yes I reviewed the patient's lab results. Labs: Laboratory Tests Range/Units 06/21/25 06/21/25 06/21/25 15:52 16:28 17:11 WBC (4.4-10.8) 10^3/uL 9.79 RBC (4.36-5.78) 10^6/uL 2.58 L Hgb (13.5-17.5) g/dL 7.6 L 6.2 L* Hct (40.0-50.0) % 24.4 L 19.6 L* MCV (80-95) fL 95 MCH (27.0-33.0) pg 29.5 MCHC (32.0-36.0) % 31.1 L RDW (11.8-14.1) % 16.5 H Plt Count (130-400) 10^3/uL 300 MPV (8.0-11.0) fL 9.3 Immature Gran % % 0.4 Neutrophils % % 66.1 Lymphocytes % % 20.5 Monocytes % % 12.6 Eosinophils % % 0.3 Basophils % % 0.1 Nucleated RBC % (0.0-0.3) % 0.3 Absolute Neutrophils (1.2-6.7) 10^3/uL 6.47 Absolute Lymphocytes (1.2-3.4) 10^3/uL 2.01 Absolute Monocytes (0.1-0.8) 10^3/uL 1.23 H Absolute Eosinophils (0.0-0.7) 10^3/uL 0.03 Absolute Basophils (0.0-0.2) 10^3/uL 0.01 RBC Morphology See Below Polychromasia Present Poikilocytosis 1+ Anisocytosis 1+ PT (9.1-11.1) sec 12.3 H INR (0.9-1.1) 1.2 H APTT (20.6-30.2) sec 29.0 VBG Lactate (<or=2.0) mmol/L 2.8 H* Sodium (136-145) mmol/L 137 Potassium (3.5-5.1) mmol/L 4.2 Chloride (98-107) mmol/L 100 Carbon Dioxide (21.0-32.0) mmol/L 23.7 Anion Gap (3-11) mmol/L 13.3 H BUN (7-18) mg/dL 35 H Creatinine (0.70-1.30) mg/dL 1.8 H Est GFR (CKD-EPI 2020) (mL/min/1.73m2) 37.82 Glucose (74-106) mg/dL 126 H Calcium (8.5-10.1) mg/dL 8.6 Magnesium (1.8-2.4) mg/dL 2.3 Total Bilirubin (0.2-1.0) mg/dL 0.6 AST (15-37) U/L 40 H ALT (16-63) U/L 45 Alkaline Phosphatase (46-116) U/L 51 Total Protein (6.4-8.2) g/dL 7.3 Albumin (3.4-5.0) g/dL 3.2 L Lipase (<78) U/L 23 Urine Color (Yellow) Urine Clarity (Clear) Urine pH (5-8) Ur Specific Galva (1.005-1.025) Urine Protein (Neg-Trace) mg/dL Urine Ketones (Negative) mg/dL Urine Blood (Negative) Urine Nitrite (Negative) Urine Bilirubin (Negative) Urine Urobilinogen (Up to 0.2) mg/dL Ur Leukocyte Esterase (Negative) Urine RBC (0-2) HPF Urine WBC (0-5) HPF Ur Epithelial Cells (Negative) HPF Urine Crystals (Negative) HPF Urine Bacteria (Negative) HPF Urine Casts (Negative) LPF Urine Mucus (Negative) Urine Other (Negative) Ur Culture Indicated? Urine Glucose (Negative) mg/dL ABO/Rh A Positive Blood Type Recheck A Positive Antibody Screen NEGATIVE Crossmatch See Detail Range/Units 06/21/25 17:56 WBC (4.4-10.8) 10^3/uL RBC (4.36-5.78) 10^6/uL Hgb (13.5-17.5) g/dL Hct (40.0-50.0) % MCV (80-95) fL MCH (27.0-33.0) pg MCHC (32.0-36.0) % RDW (11.8-14.1) % Plt Count (130-400) 10^3/uL MPV (8.0-11.0) fL Immature Gran % % Neutrophils % % Lymphocytes % % Monocytes % % Eosinophils % % Basophils % % Nucleated RBC % (0.0-0.3) % Absolute Neutrophils (1.2-6.7) 10^3/uL Absolute Lymphocytes (1.2-3.4) 10^3/uL Absolute Monocytes (0.1-0.8) 10^3/uL Absolute Eosinophils (0.0-0.7) 10^3/uL Absolute Basophils (0.0-0.2) 10^3/uL RBC Morphology Polychromasia Poikilocytosis Anisocytosis PT (9.1-11.1) sec INR (0.9-1.1) APTT (20.6-30.2) sec VBG Lactate (<or=2.0) mmol/L Sodium (136-145) mmol/L Potassium (3.5-5.1) mmol/L Chloride (98-107) mmol/L Carbon Dioxide (21.0-32.0) mmol/L Anion Gap (3-11) mmol/L BUN (7-18) mg/dL Creatinine (0.70-1.30) mg/dL Est GFR (CKD-EPI 2020) (mL/min/1.73m2) Glucose (74-106) mg/dL Calcium (8.5-10.1) mg/dL Magnesium (1.8-2.4) mg/dL Total Bilirubin (0.2-1.0) mg/dL AST (15-37) U/L ALT (16-63) U/L Alkaline Phosphatase (46-116) U/L Total Protein (6.4-8.2) g/dL Albumin (3.4-5.0) g/dL Lipase (<78) U/L Urine Color (Yellow) Yellow Urine Clarity (Clear) Clear Urine pH (5-8) 6.5 Ur Specific Galva (1.005-1.025) 1.010 Urine Protein (Neg-Trace) mg/dL 30 H Urine Ketones (Negative) mg/dL Negative Urine Blood (Negative) Trace-intact H Urine Nitrite (Negative) Negative Urine Bilirubin (Negative) Negative Urine Urobilinogen (Up to 0.2) mg/dL 1.0 H Ur Leukocyte Esterase (Negative) Negative Urine RBC (0-2) HPF 0-2 Urine WBC (0-5) HPF 0-2 Ur Epithelial Cells (Negative) HPF Rare Urine Crystals (Negative) HPF Negative Urine Bacteria (Negative) HPF Rare Urine Casts (Negative) LPF 0-2 Hyaline Urine Mucus (Negative) Trace Urine Other (Negative) Rare Transitional Ur Culture Indicated? No Urine Glucose (Negative) mg/dL Negative ABO/Rh Blood Type Recheck Antibody Screen Crossmatch PFSH All Active Problems Aortic mural thrombus (Acute) DVT prophylaxis (Acute) GI bleeding (Chronic) Eczema (Acute) Facial numbness (Acute) Cervical radiculopathy (Acute) Skin lesions, generalized (Acute) buttock Chronic low back pain (Chronic) Excessive gas (Acute) Carpal tunnel syndrome on left (Acute) Dry eyes (Acute) Knee pain, left (Acute) Chronic insomnia (Acute) Rotator cuff arthropathy of left shoulder (Acute) Cold extremities (Acute) Tobacco abuse (Acute) Cardiomyopathy (Acute) Cardiac pacemaker (Acute) at [facility] 05/09/22 for MODEL AND MOLD [employer]KER PLASTER-P; sytem explanted due to MSSA bacteremia(2ndry to wounds); MICRA leadless pacemaker implantation Atypical chest pain (Acute) Bradycardia (Acute) 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 (Acute 07/02/16) S/P coronary artery bypass graft x 3 (Acute 05/28/90) 2005 stent Sinus bradycardia (Acute 06/17/17) Telangiectasia (Acute 04/09/18) Pharyngeal Cough (Acute) Hematuria (Acute) Shoulder pain, right (Acute) Left testicular pain (Acute) Arthritis of right glenohumeral joint (Acute) Biceps tendinitis of right upper extremity (Acute) Right rotator cuff tear (Acute) Depo-Medrol injection: 09/19/2021 Non-cardiac chest pain (Acute) Prostatitis (Acute) Vasomotor rhinitis (Acute) Epistaxis (Acute) NSTEMI (non-ST elevated myocardial infarction) (Acute) Anemia (Chronic) Emphysema lung (Acute) MSSA bacteremia (Acute) Pruritus (Acute) Medical History Atrial fibrillation and flutter Coronary artery disease Essential hypertension BPH associated with nocturia Insomnia Tubular adenoma 11/13/05-[facility] 03/22/10--[facility] Systolic heart failure (02/20/17) EF 45% on ECHO from 01/29/17 Coronary atherosclerosis Surgical History Stent placement Repair of inguinal hernia (05/06/08) B/L Circumcision (10/27/97) Extraction of cataract 12/15/13-LEFT Coronary Artery Bypass Gaft (CABG) (08/20/89) 2015 Appendectomy Family History Mother Personal history of malignant neoplasm Father Stroke Sister Personal history of malignant neoplasm Brother No problems noted. Social History (Updated 06/21/25 @ 20:20 by Rodriguez Estrada) Smoking/Tobacco Use Status: Current every day Tobacco Type: cigarettes Smoking packs per day: 1.5 Smoking cigarettes per day: 30.0 and pipe Quit status: has quit before Second Hand Exposure: Yes Counseling given: patient declined Smoking risk assessment performed?: Yes Alcohol Intake: current Alcohol Intake frequency: a few times a month Alcohol type: beer Drug use: Never Substance use type: does not use Household members: spouse Housing: house Communication Needs: Hard of Hearing Do you need help understanding health information?: Rarely Pets and animals: Yes Pets and animals: dog(s) Sexually active: No Do you think of yourself as: straight/heterosexual Current gender identity: male What is your relationship status?: How often do you talk on the phone with friends or family?: three or more times per week How often do you attend spiritism or druze services?: decline to answer Do you belong to any clubs or organized social groups?: no Panel score (0-1 are the most socially isolated patients): 2 What type of physical activity do you participate in: weight lifting Duration: 15-30 minutes/day Frequency: 5-6 times per week Richa/Gnosticism: Scientologist Special richa needs: No Seatbelt use: always Helmet use: No Drive intox 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 Retired. Daughter in [place].
[2025-06-21 16:47] LABS: Anisocytosis 1+; INR 1.2 (0.9-1.1); PTT Activated 29.0 sec (20.6-30.2); Poikilocytes 1+; Polychromasia Present; Prothrombin Time 12.3 sec (9.1-11.1)
[2025-06-21 16:50] LABS: ALT 45 U/L (16-63); AST 40 U/L (15-37); Albumin 3.2 g/dL (3.4-5.0); Alkaline Phosphatase 51 U/L (46-116); Anion Gap 13.3 mmol/L (3-11); BUN 35 mg/dL (7-18); Bilirubin, Total 0.6 mg/dL (0.2-1.0); CO2 23.7 mmol/L (21.0-32.0); Calcium 8.6 mg/dL (8.5-10.1); Chloride 100 mmol/L (98-107); Glucose 126 mg/dL (74-106); Lipase 23 U/L (<78); Magnesium 2.3 mg/dL (1.8-2.4); Potassium 4.2 mmol/L (3.5-5.1); Sodium 137 mmol/L (136-145); Total Protein 7.3 g/dL (6.4-8.2)
--- NOTE | 2025-06-21 17:00 | DI.CT_ITS ---
Exam(s) CT ABDOMEN PELVIS CTA EXAM: CT ABDOMEN PELVIS CTA CLINICAL HISTORY: GI bleed protocol. TECHNIQUE: Imaging Protocol: Axial computed tomography images with coronal and sagittal reformatted images were created and reviewed CONTRAST MATERIAL: Intravenous: Omnipaque 350 Contrast volume:100 ml Oral: None COMPARISON: CT CT CHEST PE ABD PELVIS W from 12/17/2022 FINDINGS: Lung bases: There are mild increased markings in the right lung base. No pleural effusions. ABDOMEN: Arterial: There is again noted an infrarenal abdominal aortic aneurysm which again exhibits maximum diameter 3.3 cm, unchanged. Common iliac arteries are again noted be heavily calcified but not enlarged. The external iliac arteries are also again noted be heavily calcified but not enlarged. There also no aneurysms of the internal iliac arteries. Of some concern here is the fact that the arterial lumen now occupies the majority of the aneurysm and the amount of mural thrombus has decreased, with intravenous contrast now evident in this part of the lumen. Multilevel stenosis in the iliac arteries are again noted. GI: There is no intraluminal extravasation of injected intravenous contrast to demonstrate site of active GI bleeding. Is no evidence of bowel obstruction, free air, nor abscess. There is no ascites. LIVER: There is a subcapsular lesion in the anterior aspect of the left hepatic lobe which is unchanged in size from 12/17/2022 and is most probably a solitary benign hemangioma in the liver. Liver size is normal. There are no dilated intrahepatic ducts. GALLBLADDER/BILIARY: No obvious gallbladder pathology. CBD is not dilated. PANCREAS: No evidence of pancreatic mass nor dilatation of the pancreatic duct. SPLEEN: Spleen is not enlarged. There are no intrasplenic lesions. Splenic and portal veins are patent. ADRENALS: There are no significant adrenal masses. KIDNEYS: There are 2 benign cysts in left kidney again noted, these measuring 3 and 2.9 cm. These benign cysts do not require further workup. There are no solid renal masses. No calculi nor hydronephrosis. No hydroureter.. LYMPH NODES: There is no retroperitoneal nor para-aortic adenopathy. No obvious mesenteric masses. ABDOMINAL WALL: There is again noted evidence of previous lower anterior abdominal wall inguinal hernia repair at the pelvic level. No abnormal collections nor masses in this region. GI: There is no evidence of bowel obstruction, free air, nor abscess. PELVIS: LYMPH NODES: There is no intrapelvic nor inguinal adenopathy. GI: No evidence of appendicitis.There is extensive sigmoid diverticulosis. No evidence of obvious acute diverticulitis. URINARY BLADDER: Bladder is mildly distended. Otherwise unremarkable. Pelvic ureters are not dilated. REPRODUCTIVE: Prostate size is upper normal. Seminal vesicles unremarkable. OSSEOUS: No significant osseous lesions. No fractures. Multilevel chronic degenerative disc disease noted. IMPRESSION: 1. There is no active intraluminal extravasation of injected IV contrast demonstrated on this study to suggest the site of GI bleeding. 2. Again noted is an infrarenal abdominal aortic aneurysm. Although the maximum diameter is still 3.3 cm, the injected contrast in the lumen now feels part of the aneurysm which was previously in habit by mural thrombus. The mural thrombus is significantly less prevalent at this level on the present study. This may indicate that there is higher propensity for rupture when compared to the prior CT scan of 12/17/2022, despite absence of increased in size of the aneurysm. There is also an element of chronic dissection at the level of the aneurysm. Recommend referral to vascular surgery. 3. Stable benign-appearing left hepatic lobe lesion which is probably a small cavernous hemangioma. 4. There is evidence of previous bilateral inguinal hernia repair. Report called by myself to ER provider 06/21/2025 at 6:30 p.m. RADIATION DOSE DELIVERED: 737.75mGy.cm Total DLP DATA REPOSITORY: All CT scans at this facility are submitted to the National Radiology Data Registry (NRDR) Dose Index Registry (DIR) with the [employer] (ACR). RADIATION OPTIMIZATION: All CT scans at this facility use at least one of these dose optimization techniques: automated exposure control; mA and/or kV adjustment per patient size (includes targeted exams where dose is matched to clinical indication); or iterative reconstruction.
[2025-06-21 17:24] LABS: HGB 6.2 g/dL (13.5-17.5)
[2025-06-21 17:25] LABS: HCT 19.6 % (40.0-50.0)
[2025-06-21] MEDS: Normal Saline Flush 10 ML SYR IVP (17:44)
[2025-06-21] MEDS: Normal Saline - Diluent 50 ML VIAL IJ (17:44)
[2025-06-21] MEDS: Omnipaque 350 MG/ML 100 ML BTL IJ (17:44)
[2025-06-21 18:15] LABS: Glucose Negative (Negative)
[2025-06-21 18:16] LABS: C & S Indicated? No; RBC 0-2 HPF (0-2); WBC 0-2 HPF (0-5)
[2025-06-21] MEDS: Pantoprazole 40 MG VIAL IVP (19:28)
--- NOTE | 2025-06-21 19:54 | HPE_ITS ---
Date of service: 06/21/25 Time of Service: 19:54 Assessment and Plan Assessment and plan (1) GI bleeding: Status: Chronic Assessment and plan: History c/w upper GI bleed, on ASA/apixaban Started 10+ days ago. He was also given steroids a week ago. Long smoking history, high risk of pathology, but procedure also higher risk Will not reverse apixaban now as VS stable and not very symptomatic, but if futher bleeding would proceed with reversal D/w Dr. Resendiz from surgery. Discussed h/o arrest with procedures in the past, he may warrant transfer if procedure needed. Admit to ICU for close monitoring due to risk (2) Anemia: Status: Chronic Assessment and plan: Severe anemia due to blood loss as above. Getting 2 units now. Repeat h/h after transfusions, follow (3) Tobacco abuse: Status: Acute Assessment and plan: not interested in quitting, discussed. NRT prn for now. (4) Cardiomyopathy: Status: Acute Assessment and plan: h/o CAD/DE, had LVEF 45% in remote past but was 55% on last echocardiogram in 2022. Not currently clinically in CHF. Cardiac monitoring. (5) BPH associated with nocturia: Assessment and plan: continue (6) Atrial fibrillation and flutter: Assessment and plan: paced now. continue metoprolol. holding apixaban. (7) Aortic mural thrombus: Status: Acute Assessment and plan: Unclear significance of increased contrast in mural clot. No symptoms that seem to be related to this. Review with vascular non-urgently. (8) DVT prophylaxis: Status: Acute Assessment and plan: active GI bleed. TEDs/SCDs History of Present Illness History of Present Illness Chief Complaint: black stools, fatigue Narrative: 79 yo M with a complex medical history including active smoking, CAD s/p CABG with ischemic cardiomyopathy, pacemaker, atrial fibrillation on apixaban, AAA, emphysema who presented with 2 weeks of increasing fatigue and three melanotic stools over the past 10 days. He states he is usually regular with daily BMs. 10 days ago he hadn't gone in a few days and had hard black stools. Over the past 8-10 days he has become increasingly generally weak, short of breath with exertion. In that time he had two more hard stools that were black, most recently yesterday 06/20. He went to see the clinic today and had a BP of 79/48 and was sent to the ED. He states he did have a flu-like illness and went to the [facility] 06/14. He wast treated for COPD exacerbation with prednisone and augmentin and inhalers. He had nasal congestion and cough at that time that did resolve. He denies taking any NSAIDs, only uses acetaminophen though it doesn't work. Currently he feel tired, but no pain. He only has abdominal pain in LLQ groin when flexing muscles trying to move. He sometimes has reflux, but rarely, doesn't take medication. No h/o GI bleeding. No recent other bleeding. No recent alcohol. He had some chest pain 2 days ago that lasted minutes, hasn't recurred. Not dizzy, no passing out, no palpitations. Review of Systems All systems reviewed & are unremarkable except as noted in HPI and below Musculoskeletal Musculoskeletal: Reports back pain (not bad now) PFSH All Active Problems Aortic mural thrombus (Acute) DVT prophylaxis (Acute) GI bleeding (Chronic) Eczema (Acute) Facial numbness (Acute) Cervical radiculopathy (Acute) Skin lesions, generalized (Acute) buttock Chronic low back pain (Chronic) Excessive gas (Acute) Carpal tunnel syndrome on left (Acute) Dry eyes (Acute) Knee pain, left (Acute) Chronic insomnia (Acute) Rotator cuff arthropathy of left shoulder (Acute) Cold extremities (Acute) Pruritus (Acute) MSSA bacteremia (Acute) Emphysema lung (Acute) Anemia (Chronic) NSTEMI (non-ST elevated myocardial infarction) (Acute) Epistaxis (Acute) Vasomotor rhinitis (Acute) Cardiomyopathy (Acute) Cardiac pacemaker (Acute) at [facility] [place] 05/09/22 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; sytem explanted due to MSSA bacteremia(2ndry to wounds); MI[employer] leadless pacemaker implantation Prostatitis (Acute) Non-cardiac chest pain (Acute) Right rotator cuff tear (Acute) Depo-Medrol injection: 09/19/2021 Biceps tendinitis of right upper extremity (Acute) Arthritis of right glenohumeral joint (Acute) Left testicular pain (Acute) Shoulder pain, right (Acute) Hematuria (Acute) Cough (Acute) Tobacco abuse (Acute) Telangiectasia (Acute 04/09/18) Pharyngeal Sinus bradycardia (Acute 06/17/17) S/P coronary artery bypass graft x 3 (Acute 05/28/90) 2004 stent 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 (Acute 07/02/16) Bradycardia (Acute) Atypical chest pain (Acute) Medical History Atrial fibrillation and flutter Coronary artery disease Essential hypertension BPH associated with nocturia Insomnia Tubular adenoma 11/13/05-[facility] 03/22/10--[facility] Systolic heart failure (02/20/17) EF 45% on ECHO from 01/29/17 Coronary atherosclerosis Surgical History Stent placement Repair of inguinal hernia (05/06/08) B/L Circumcision (10/27/97) Extraction of cataract 12/15/13-LEFT Coronary Artery Bypass Gaft (CABG) (08/20/89) 2014 Appendectomy Family History Mother Personal history of malignant neoplasm Father Stroke Sister Personal history of malignant neoplasm Brother No problems noted. Social History (Updated 06/21/25 @ 20:20 by Rodriguez Estrada) Smoking/Tobacco Use Status: Current every day Tobacco Type: cigarettes Smoking packs per day: 1.5 Smoking cigarettes per day: 30.0 and pipe Quit status: has quit before Second Hand Exposure: Yes Counseling given: patient declined Smoking risk assessment performed?: Yes Alcohol Intake: current Alcohol Intake frequency: a few times a month Alcohol type: beer Drug use: Never Substance use type: does not use Household members: spouse Housing: house Communication Needs: Hard of Hearing Do you need help understanding health information?: Rarely Pets and animals: Yes Pets and animals: dog(s) Sexually active: No Do you think of yourself as: straight/heterosexual Current gender identity: male What is your relationship status?: How often do you talk on the phone with friends or family?: three or more times per week How often do you attend mormon or moravian services?: decline to answer Do you belong to any clubs or organized social groups?: no Panel score (0-1 are the most socially isolated patients): 2 What type of physical activity do you participate in: weight lifting Duration: 15-30 minutes/day Frequency: 5-6 times per week Richa/Moravian: [employer] Special richa needs: No Seatbelt use: always Helmet use: No Drive intox or ride w/intox wedding transportation driver: No Do you feel safe at home: Yes Do you feel safe in your relationship?: Yes Additional Social history: Lives with in [place]. Retired. Daughter in [place]. Meds Allergies and Home Medications Allergies Allergy/AdvReac Type Severity Reaction Status Date / Time codeine AdvReac Intermediate Headache Verified 06/14/25 12:00 ezetimibe (From Zetia) AdvReac Intermediate myalgia Verified 06/14/25 12:00 Home Medications Medication Instructions Recorded Confirmed Type aspirin 81 mg tablet,delayed 81 mg PO DAILY 12/10/18 1 08/21/24 History release fluticasone propionate 50 2 spray intranasal DAILY #9. 9 grams 09/24/24 06/21/25 Rx mcg/actuation nasal spray,suspension finasteride 5 mg tablet (Proscar) 5 mg PO HS #90 tabs 11/10/24 06/21/25 Rx losartan 25 mg tablet 25 mg PO DAILY #90 tabs 10/1806/21/25 Rx metoprolol succinate 50 mg 50 mg PO DAILY #90 tabs 06/21/25 Rx tablet,extended release 24 hr rosuvastatin 40 mg tablet (Crestor) 40 mg PO DAILY #90 tabs 11/10/24 06/21/25 Rx tamsulosin 0.4 mg capsule (Flomax) 0.4 mg PO QHS #90 c aps 11/10/24 06/21/25 Rx apixaban 5 mg tablet (Eliquis) 5 mg PO bid #180 tabs 05/20/25 06/21/25 Rx zolpidem 5 mg tablet (Ambien) 5 mg PO QHS PRN sleep #3 0 tabs 05/20/25 06/21/25 Rx albuterol sulfate 90 mcg/actuation 2 puff inhalation Q 6H PRN 06/14/25 06/21/25 Rx aerosol inhaler shortness of breath or wheez ing #8.5 grams prednisone 20 mg tablet 40 mg (2 x 20 mg) PO DAILY # 10 tabs 06/14/25 06/21/25 Rx Exam Narrative Exam Narrative: GEN: Alert and oriented x 4, pleasant and cooperative, gives linear history. Pale, but no acute distress at rest. HEENT: Head atraumatic other than 1.5 cm deep pink macule on back of crown of head Conjunctiva clear, no icterus. PEERL, EOMI. no rhinorrhea. MMM, OP benign with 3 petechiae on soft palate. Neck is supple with no masses or lymphadenopathy, trachea midline LUNGS: Diminished breath sounds diffusely, but no wheezes or rales, normal effort, speaking comfortably. CV: RRR with no murmurs, gallops, or rubs. ABD: active bowel sounds, soft, nontender and nondistended. No masses. EXT: no cyanosis, clubbing. Cool but not cold toes, poor cap refill. 1-2+ pitting edema to ankles MSK: No joint redness or swelling NEURO: CN 2-12 grossly intact. Normal movement of 4 extremities. Normal speech and coordination. No tremor SKIN: No rashes or open wounds. Few scattered bruises PSYCH: normal mood and affect, normal thought process Results Imaging Chest x-ray: report reviewed (No acute pulmonary findings) and image reviewed EKG: report reviewed and image reviewed (paced at 60, no ischemic pattern) Imaging Studies: CTA A/P: 1. There is no active intraluminal extravasation of injected IV contrast demonstrated on this study to suggest the site of GI bleeding. 2. Again noted is an infrarenal abdominal aortic aneurysm. Although the maximum diameter is still 3.3 cm, the injected contrast in the lumen now feels part of the aneurysm which was previously in habit by mural thrombus. The mural thrombus is significantly less prevalent at this level on the present study. This may indicate that there is higher propensity for rupture when compared to the prior CT scan of 12/17/2022, despite absence of increased in size of the aneurysm. There is also an element of chronic dissection at the level of the aneurysm. Recommend referral to vascular surgery. 3. Stable benign-appearing left hepatic lobe lesion which is probably a small cavernous hemangioma. 4. There is evidence of previous bilateral inguinal hernia repair. Labs 06/21/25 17:11 06/21/25 15:52 Labs: Laboratory Results - last 24 hr 06/21/25 06/21/25 06/21/25 15:52 16:28 17:11 WBC 9.79 RBC 2.58 L Hgb 7.6 L 6.2 L* Hct 24.4 L 19.6 L* MCV 95 MCH 29.5 MCHC 31.1 L RDW 16.5 H Plt Count 300 MPV 9.3 Immature Gran % 0.4 Neutrophils % 66.1 Lymphocytes % 20.5 Monocytes % 12.6 Eosinophils % 0.3 Basophils % 0.1 Nucleated RBC % 0.3 Absolute Neutrophils 6.47 Absolute Lymphocytes 2.01 Absolute Monocytes 1.23 H Absolute Eosinophils 0.03 Absolute Basophils 0.01 RBC Morphology See Below Polychromasia Present Poikilocytosis 1+ Anisocytosis 1+ PT 12.3 H INR 1.2 H APTT 29.0 VBG Lactate 2.8 H* Sodium 137 Potassium 4.2 Chloride 100 Carbon Dioxide 23.7 Anion Gap 13.3 H BUN 35 H Creatinine 1.8 H Est GFR (CKD-EPI 2020) 37.82 Glucose 126 H Calcium 8.6 Magnesium 2.3 Total Bilirubin 0.6 AST 40 H ALT 45 Alkaline Phosphatase 51 Total Protein 7.3 Albumin 3.2 L Lipase 23 Urine Color Urine Clarity Urine pH Ur Specific [place] Urine Protein Urine Ketones Urine Blood Urine Nitrite Urine Bilirubin Urine Urobilinogen Ur Leukocyte Esterase Urine RBC Urine WBC Ur Epithelial Cells Urine Crystals Urine Bacteria Urine Casts Urine Mucus Urine Other Ur Culture Indicated? Urine Glucose ABO/Rh A Positive Blood Type Recheck A Positive Antibody Screen NEGATIVE Crossmatch See Detail 06/21/25 17:56 WBC RBC Hgb Hct MCV MCH MCHC RDW Plt Count MPV Immature Gran % Neutrophils % Lymphocytes % Monocytes % Eosinophils % Basophils % Nucleated RBC % Absolute Neutrophils Absolute Lymphocytes Absolute Monocytes Absolute Eosinophils Absolute Basophils RBC Morphology Polychromasia Poikilocytosis Anisocytosis PT INR APTT VBG Lactate Sodium Potassium Chloride Carbon Dioxide Anion Gap BUN Creatinine Est GFR (CKD-EPI 2020) Glucose Calcium Magnesium Total Bilirubin AST ALT Alkaline Phosphatase Total Protein Albumin Lipase Urine Color Yellow Urine Clarity Clear Urine pH 6.5 Ur Specific [place] 1.010 Urine Protein 30 H Urine Ketones Negative Urine Blood Trace-intact H Urine Nitrite Negative Urine Bilirubin Negative Urine Urobilinogen 1.0 H Ur Leukocyte Esterase Negative Urine RBC 0-2 Urine WBC 0-2 Ur Epithelial Cells Rare Urine Crystals Negative Urine Bacteria Rare Urine Casts 0-2 Hyaline Urine Mucus Trace Urine Other Rare Transitional Ur Culture Indicated? No Urine Glucose Negative ABO/Rh Blood Type Recheck Antibody Screen Crossmatch Last Vital Signs Temp 36.6 C 06/21/25 19:33 Pulse 79 06/21/25 19:33 Resp 23 06/21/25 19:33 BP 123/84 06/21/25 19:33 Pulse Ox 94 06/21/25 19:33 Time Spent Time spent with Patient: 55-74 minutes Time was spent: preparing to see the patient(eg.review tests), obtaining and/or reviewing separately otained hiistory, ordering medications,tests, procedures, referring, communicating with other health behavioral health care manager, indepentently interpreting results, counseling the patient and care coordination
[2025-06-21] MEDS: Finasteride 5 MG TAB PO (22:59)
[2025-06-21] MEDS: Tamsulosin 0.4 MG CAPCR PO (22:59)
[2025-06-21] MEDS: Zolpidem 5 MG TAB PO (23:00)
[2025-06-21 23:23] LABS: ALT 32 U/L (16-63); AST 23 U/L (15-37); Albumin 2.5 g/dL (3.4-5.0); Alkaline Phosphatase 43 U/L (46-116); Anion Gap 8.2 mmol/L (3-11); BUN 30 mg/dL (7-18); Bilirubin, Total 1.1 mg/dL (0.2-1.0); CO2 23.8 mmol/L (21.0-32.0); Calcium 7.8 mg/dL (8.5-10.1); Chloride 105 mmol/L (98-107); Glucose 98 mg/dL (74-106); Potassium 4.4 mmol/L (3.5-5.1); Sodium 137 mmol/L (136-145); Total Protein 5.7 g/dL (6.4-8.2)
[2025-06-21 23:46] LABS: HCT 25.1 % (40.0-50.0); HGB 7.9 g/dL (13.5-17.5); MCH 28.7 pg (27.0-33.0); MCHC 31.5 % (32.0-36.0); MCV 91 fL (80-95); MPV 9.1 fL (8.0-11.0); Platelet Count 237 10^3/uL (130-400); RBC 2.75 10^6/uL (4.36-5.78); RDW 17.9 % (11.8-14.1); RDW-SD 58.6 fL; WBC 9.91 10^3/uL (4.4-10.8)
[2025-06-22] VITALS (35 sets, daily range): BP systolic 88–136; BP diastolic 43–90; PULSE 58–99; RESP 12–31; TEMP 36.2–37.1; O2SAT 91–93
[2025-06-22 05:59] LABS: HCT 28.7 % (40.0-50.0); HGB 9.1 g/dL (13.5-17.5); MCH 28.0 pg (27.0-33.0); MCHC 31.7 % (32.0-36.0); MCV 88 fL (80-95); MPV 9.1 fL (8.0-11.0); Platelet Count 224 10^3/uL (130-400); RBC 3.25 10^6/uL (4.36-5.78); RDW 18.6 % (11.8-14.1); RDW-SD 59.2 fL; WBC 9.66 10^3/uL (4.4-10.8)
[2025-06-22] MEDS: DEXTROSE 5%-LACTATED RINGERS 1,000 ML 120 ML IV ×2 (07:45→15:50)
[2025-06-22] MEDS: Pantoprazole 40 MG VIAL IVP ×2 (08:26→21:00)
[2025-06-22] MEDS: Nicotine 21 MG/24 HR PATCH TD (08:27)
[2025-06-22] MEDS: Normal Saline Flush 10 ML SYR IVP ×2 (08:27→22:12)
--- NOTE | 2025-06-22 08:34 | INITIAL_ITS ---
Date of service: 06/22/25 Time of Service: 08:34 Care Management Initial Assmt Initial Assessment Reason for Hospitalization: GI Bleeding Functional Status/Living Situation Patient Presentation: Joshua was seen in the ED yesterday afternoon after being sent by his PCP. He was seen in clinic earlier in the day with c/o black stools. He was found to be pale and to by hypotensive. In the ED Joshua stated that he was weak, lightheaded and fatigued. Joshua was found to have an upper GI bleed, and was admitted to ICU for close monitoring. Joshua was sitting up in the bed, eating some crackers and applesauce, when CM met with him today. He was very pleasant, and easily conversed. Joshua's daughter, Isa, was present as well, and was equally as nice. Joshua lives with his , Carolyn. They are independent in the community. Joshua still drives. Isa is nearby, and is helpful, as is his daughter Lali. Joshua was feeling a lot better today, and is hopeful that he will go home tomorrow. Town of Residence: [place] Resides with: Spouse (Carolyn) Significant Other/Family: Local (daughters Isa and Lali, and their families) Natural Supports: family Employment Status: Retired (worked at a [employer] for over 30 years) Instrumental Activities of Daily Living (ADLs): Independent Medications Medication Management: No Issues/Barriers identified Advance Directives Advance Directives: Do you have an Advance Directive: N , 14:34 AD On File at [facility]: N 02/22/25, 14:34 Date Asked 06/21/25 06/21/25, 16:36 AD Date Reviewed COLST On File at [facility] No 12/17/22, 12:10 COLST Date Scanned Code Status Resuscitation Status Full Code Insurance Coverage/Financial Issues Insurance: Medicare Part A & B - [id number] [facility] - [id number] FINANCIAL ASST 100 Care Team Visit Care Team Role Provider Type Italo Davis MD MD [facility] STAFF PHYSICIAN Real Horn MD Primary Care Provider [facility] STAFF PHYSICIAN Moy Resendiz MD Other Providers [facility] STAFF PHYSICIAN KAREN Mckenzie Emergency Provider 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 He will f/u with his PCP and continue per his plan of care. Joshua will transport home with family. CM will continue to follow through discharge and update the plan as needed. Social Determinants of Health Screening Will the Patient Participate in the Screening?: Declined to provide PFSH All Active Problems Aortic mural thrombus (Acute) DVT prophylaxis (Acute) GI bleeding (Chronic) Eczema (Acute) Facial numbness (Acute) Cervical radiculopathy (Acute) Skin lesions, generalized (Acute) buttock Chronic low back pain (Chronic) Excessive gas (Acute) Carpal tunnel syndrome on left (Acute) Dry eyes (Acute) Knee pain, left (Acute) Chronic insomnia (Acute) Rotator cuff arthropathy of left shoulder (Acute) Cold extremities (Acute) Tobacco abuse (Acute) Cardiomyopathy (Acute) Cardiac pacemaker [place]Acute) [place] [facility] [place] 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; sytem explanted due to MSSA bacteremia(2ndry to wounds); MI[employer] leadless pacemaker implantation Atypical chest pain (Acute) Bradycardia (Acute) 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 (Acute 07/02/16) S/P coronary artery bypass graft x 3 (Acute 05/28/90) 2004 stent Sinus bradycardia (Acute 06/17/17) Telangiectasia (Acute 04/09/18) Pharyngeal Cough (Acute) Hematuria (Acute) Shoulder pain, right (Acute) Left testicular pain (Acute) Arthritis of right glenohumeral joint (Acute) Biceps tendinitis of right upper extremity (Acute) Right rotator cuff tear (Acute) Depo-Medrol injection: 09/19/2021 Non-cardiac chest pain (Acute) Prostatitis (Acute) Vasomotor rhinitis (Acute) Epistaxis (Acute) NSTEMI (non-ST elevated myocardial infarction) (Acute) Anemia (Chronic) Emphysema lung (Acute) MSSA bacteremia (Acute) Pruritus (Acute) Medical History Atrial fibrillation and flutter Coronary artery disease Essential hypertension BPH associated with nocturia Insomnia Tubular adenoma 3/28/06-[facility] 03/22/10--[facility] Systolic heart failure (02/20/17) EF 45% on ECHO from 01/29/17 Coronary atherosclerosis Surgical History Stent placement Repair of inguinal hernia (05/06/08) B/L Circumcision (10/27/97) Extraction of cataract 12/15/13-LEFT Coronary Artery Bypass Gaft (CABG) (08/20/89) 2015 Appendectomy Family History Mother Personal history of malignant neoplasm Father Stroke Sister Personal history of malignant neoplasm Brother No problems noted. Social History (Updated 06/21/25 @ 20:20 by Rodriguez Estrada) Smoking/Tobacco Use Status: Current every day Tobacco Type: cigarettes Smoking packs per day: 1.5 Smoking cigarettes per day: 30.0 and pipe Quit status: has quit before Second Hand Exposure: Yes Counseling given: patient declined Smoking risk assessment performed?: Yes Alcohol Intake: current Alcohol Intake frequency: a few times a month Alcohol type: beer Drug use: Never Substance use type: does not use Household members: spouse Housing: house Communication Needs: Hard of Hearing Do you need help understanding health information?: Rarely Pets and animals: Yes Pets and animals: dog(s) Sexually active: No Do you think of yourself as: straight/heterosexual Current gender identity: male What is your relationship status?: How often do you talk on the phone with friends or family?: three or more times per week How often do you attend zoroastrian or zoroastrian services?: decline to answer Do you belong to any clubs or organized social groups?: no Panel score (0-1 are the most socially isolated patients): 2 What type of physical activity do you participate in: weight lifting Duration: 15-30 minutes/day Frequency: 5-6 times per week Richa/Christianity: Congregational Special richa needs: No Seatbelt use: always Helmet use: No Drive intox or ride w/intox tank wagon driver: No Do you feel safe at home: Yes Do you feel safe in your relationship?: Yes Additional Social history: Lives with in [place]. Retired. Daughter in [place].
--- NOTE | 2025-06-22 11:30 | W.PM.PROGNOT ---
Date of Service Date of service: 06/22/25 Time of Service: 11:30 Assessment and Plan Assessment and plan (1) GI bleeding: Status: Chronic Assessment and plan: -History c/w upper GI bleed, on ASA/apixaban which was started 10+ days ago. 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 -NRT prn for now. (4) Cardiomyopathy: Status: Acute Assessment and plan: -h/o CAD/NM, had LVEF 45% in remote past but was 55% on last echocardiogram in 2022. -Not currently clinically in CHF. (5) BPH associated with nocturia: Assessment and plan: -continue home medication regimen (6) Atrial fibrillation and flutter: Assessment and plan: -pacer in place and working -contiue home toprol XL -holdling eliquis as noted above (7) DVT prophylaxis: Status: Acute Assessment and plan: -TEDs/SCDs Subjective Subjective Interval history since last seen: Patient states that he is doing well today and understands a plan to have general surgery check in on potential for colonoscopy and endoscopy. He also understands that his hemoglobin has stabilized and he will advance his diet. Otherwise he has no other concerns at this time. Exam Narrative Exam Narrative: Elderly appearing gentleman laying in bed in no acute distress, ANO x 4, heart regular rhythm, lungs clear to auscultation bilaterally, abdomen soft, nontender, nondistended Objective Last Vital Signs Temp 98.1 F 06/22/25 08:45 Pulse 59 L 06/22/25 10:31 Resp 20 06/22/25 10:31 BP 103/48 L 06/22/25 10:31 Pulse Ox 93 06/22/25 04:01 Laboratory Results - last 24 hr 06/21/25 06/21/25 06/21/25 15:52 16:28 17:11 WBC 9.79 RBC 2.58 L Hgb 7.6 L 6.2 L* Hct 24.4 L 19.6 L* MCV 95 MCH 29.5 MCHC 31.1 L RDW 16.5 H Plt Count 300 MPV 9.3 Immature Gran % 0.4 Neutrophils % 66.1 Lymphocytes % 20.5 Monocytes % 12.6 Eosinophils % 0.3 Basophils % 0.1 Nucleated RBC % 0.3 Absolute Neutrophils 6.47 Absolute Lymphocytes 2.01 Absolute Monocytes 1.23 H Absolute Eosinophils 0.03 Absolute Basophils 0.01 RBC Morphology See Below Polychromasia Present Poikilocytosis 1+ Anisocytosis 1+ PT 12.3 H INR 1.2 H APTT 29.0 VBG Lactate 2.8 H* Sodium 137 Potassium 4.2 Chloride 100 Carbon Dioxide 23.7 Anion Gap 13.3 H BUN 35 H Creatinine 1.8 H Est GFR (CKD-EPI 2020) 37.82 Glucose 126 H Calcium 8.6 Magnesium 2.3 Total Bilirubin 0.6 AST 40 H ALT 45 Alkaline Phosphatase 51 Total Protein 7.3 Albumin 3.2 L Lipase 23 Urine Color Urine Clarity Urine pH Ur Specific [place] Urine Protein Urine Ketones Urine Blood Urine Nitrite Urine Bilirubin Urine Urobilinogen Ur Leukocyte Esterase Urine RBC Urine WBC Ur Epithelial Cells Urine Crystals Urine Bacteria Urine Casts Urine Mucus Urine Other Ur Culture Indicated? Urine Glucose ABO/Rh A Positive Blood Type Recheck A Positive Antibody Screen NEGATIVE Crossmatch See Detail 06/21/25 06/21/25 06/22/25 17:56 23:00 05:47 WBC 9.91 9.66 RBC 2.75 L 3.25 L Hgb 7.9 L 9.1 L Hct 25.1 L 28.7 L MCV 91 D 88 MCH 28.7 28.0 MCHC 31.5 L 31.7 L RDW 17.9 H 18.6 H Plt Count 237 224 MPV 9.1 9.1 Immature Gran % Neutrophils % Lymphocytes % Monocytes % Eosinophils % Basophils % Nucleated RBC % Absolute Neutrophils Absolute Lymphocytes Absolute Monocytes Absolute Eosinophils Absolute Basophils RBC Morphology Polychromasia Poikilocytosis Anisocytosis PT INR APTT VBG Lactate 0.8 Sodium 137 Potassium 4.4 Chloride 105 Carbon Dioxide 23.8 Anion Gap 8.2 BUN 30 H Creatinine 1.5 H Est GFR (CKD-EPI 2020) 47.06 Glucose 98 Calcium 7.8 L Magnesium Total Bilirubin 1.1 H AST 23 ALT 32 Alkaline Phosphatase 43 L Total Protein 5.7 L Albumin 2.5 L Lipase Urine Color Yellow Urine Clarity Clear Urine pH 6.5 Ur Specific [place] 1.010 Urine Protein 30 H Urine Ketones Negative Urine Blood Trace-intact H Urine Nitrite Negative Urine Bilirubin Negative Urine Urobilinogen 1.0 H Ur Leukocyte Esterase Negative Urine RBC 0-2 Urine WBC 0-2 Ur Epithelial Cells Rare Urine Crystals Negative Urine Bacteria Rare Urine Casts 0-2 Hyaline Urine Mucus Trace Urine Other Rare Transitional Ur Culture Indicated? No Urine Glucose Negative ABO/Rh Blood Type Recheck Antibody Screen Crossmatch Time Spent with Patient Time Spent with Patient: >50 minutes Time was spent: preparing to see the patient(eg.review tests), obtaining and/or reviewing separately otained hiistory, ordering medications,tests, procedures, referring, communicating with other health post acute care registered nurse, indepentently interpreting results, counseling the patient and care coordination
--- NOTE | 2025-06-22 13:54 | SCONE_ITS ---
Date of service: 06/22/25 Time of Service: 13:54 Assessment and Plan Assessment and plan (1) GI bleeding: Status: Chronic Assessment and plan: Patient is a 79-year-old male with past medical history of prior CABG with ischemic cardiomyopathy, pacemaker, atrial fibrillation on Eliquis, AAA, emphysema who presented with fatigue and melanotic stool. He endorses a history of recent constipation in the setting of a respiratory illness. He states that around 3 days ago he had 1 large black stool. He denies any further bowel movement since this time but has been passing flatus. He denies any nausea, vomiting, fevers, chills, or abdominal pain. On exam today he is afebrile and hemodynamically stable. His abdomen is soft, nontender, nondistended. Since his admission from the ED he did receive 2 units of PRBCs with an appropriate response in his hemoglobin. He has also remained hemodynamically stable since admission. A colonoscopy and upper endoscopy was discussed with him today however given his significant cardiac history refraining from the procedure if he is stable with no evidence of ongoing bleeding would be appropriate at this time. Would recommend continuing to monitor closely as well as his bowel function. Given his stability and appropriate response to blood products and no further evidence of melanotic stools it is likely appropriate to his advance his diet as tolerated today. Would recommend continuing to hold his anticoagulation pending further monitoring at this time. (2) Cardiomyopathy: Status: Acute (3) Atrial fibrillation and flutter: History of Present Illness Narrative: Patient is a 79-year-old male with past medical history of prior CABG with ischemic cardiomyopathy, pacemaker, atrial fibrillation on Eliquis, AAA, emphysema who presented with fatigue and melanotic stools. He notes that he has been feeling unwell for the past couple of weeks with a cough and COPD exacerbation. He states he has been taking antibiotics for this. He states that he does have 1 black bowel movement around 3 days ago. He notes that this is his only bowel movement in the last 10 days. He states that he usually has bowel movements every day so this is irregular for him. He denies any previous history of a GI bleed. He notes he has been on Eliquis for many years without difficulty. He denies any nausea, vomiting, fevers, chills. He states he has had an ongoing cough and left lower flank pain only when moving. He denies any lightheadedness or dizziness. He notes that he has not had a bowel movement since admission but he does continue to pass flatus. He states that he is very hungry at this time. He denies any previous abdominal surgery. He states he has had a prior colonoscopy at the age of 65 or 70. He denies any personal history of polyps or family history of colon cancer. He notes that he elected not to have a repeat colonoscopy and does not want to undergo another colonoscopy. He has never had a prior upper endoscopy. He denies any family history of gastric or esophageal cancer. Review of Systems Constitutional Constitutional: Denies chills, Denies fever(s) and Denies weight loss Cardiovascular Cardiovascular: Denies chest pain and Denies dyspnea Respiratory Respiratory: Denies dyspnea Gastrointestinal Gastrointestinal: Denies abdominal pain, Denies nausea and Denies vomiting Integumentary/Breasts Skin/Breast: Denies new lesions and Denies rash PFSH All Active Problems Aortic mural thrombus (Acute) DVT prophylaxis (Acute) GI bleeding (Chronic) Eczema (Acute) Facial numbness (Acute) Cervical radiculopathy (Acute) Skin lesions, generalized (Acute) buttock Chronic low back pain (Chronic) Excessive gas (Acute) Carpal tunnel syndrome on left (Acute) Dry eyes (Acute) Knee pain, left (Acute) Chronic insomnia (Acute) Rotator cuff arthropathy of left shoulder (Acute) Cold extremities (Acute) Tobacco abuse (Acute) Cardiomyopathy (Acute) Cardiac pacemaker (Acute) at [facility] [place] for [employer]ISA[employer]SE [employer]OR-P; sytem explanted due to MSSA bacteremia(2ndry to wounds); MICRA leadless pacemaker implantation Atypical chest pain (Acute) Bradycardia (Acute) 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 (Acute 07/02/16) S/P coronary artery bypass graft x 3 (Acute 05/28/90) 2004 stent Sinus bradycardia (Acute 06/17/17) Telangiectasia (Acute 04/09/18) Pharyngeal Cough (Acute) Hematuria (Acute) Shoulder pain, right (Acute) Left testicular pain (Acute) Arthritis of right glenohumeral joint (Acute) Biceps tendinitis of right upper extremity (Acute) Right rotator cuff tear (Acute) Depo-Medrol injection: 09/19/2021 Non-cardiac chest pain (Acute) Prostatitis (Acute) Vasomotor rhinitis (Acute) Epistaxis (Acute) NSTEMI (non-ST elevated myocardial infarction) (Acute) Anemia (Chronic) Emphysema lung (Acute) MSSA bacteremia (Acute) Pruritus (Acute) Medical History Atrial fibrillation and flutter Coronary artery disease Essential hypertension BPH associated with nocturia Insomnia Tubular adenoma 11/13/05[facility] Systolic heart failure (02/20/17) EF 45% on ECHO from 01/29/17 Coronary atherosclerosis Surgical History Stent placement Repair of inguinal hernia (05/06/08) B/L Circumcision (10/27/97) Extraction of cataract 12/15/13-LEFT Coronary Artery Bypass G[place] (CABG) (08/20/89) 2015 Appendectomy Family History Mother Personal history of malignant neoplasm Father Stroke Sister Personal history of malignant neoplasm Brother No problems noted. Social History (Updated 06/21/25 @ 20:20 by Rodriguez Estrada) Smoking/Tobacco Use Status: Current every day Tobacco Type: cigarettes Smoking packs per day: 1.5 Smoking cigarettes per day: 30.0 and pipe Quit status: has quit before Second Hand Exposure: Yes Counseling given: patient declined Smoking risk assessment performed?: Yes Alcohol Intake: current Alcohol Intake frequency: a few times a month Alcohol type: beer Drug use: Never Substance use type: does not use Household members: spouse Housing: house Communication Needs: Hard of Hearing Do you need help understanding health information?: Rarely Pets and animals: Yes Pets and animals: dog(s) Sexually active: No Do you think of yourself as: straight/heterosexual Current gender identity: male What is your relationship status?: How often do you talk on the phone with friends or family?: three or more times per week How often do you attend caodaism or moravian services?: decline to answer Do you belong to any clubs or organized social groups?: no Panel score (0-1 are the most socially isolated patients): 2 What type of physical activity do you participate in: weight lifting Duration: 15-30 minutes/day Frequency: 5-6 times per week Richa/Methodist: Taoist Special richa needs: No Seatbelt use: always Helmet use: No Drive intox or ride w/intox local [place] truck driver: No Do you feel safe at home: Yes Do you feel safe in your relationship?: Yes Additional Social history: Lives with in [place]. Retired. Daughter in [place]. Exam Narrative Exam Narrative: General: Well appearing, no acute distress. Skin: Good turgor, no visible rashes or lesion HEENT: Normocephalic, atraumatic CV: Regular rate Lungs: Bilateral equal chest rise, non-labored breathing Abdomen: Soft, non-tender, non-distended, no masses or organomegaly Extremities: Warm, well perfused Neurologic: No focal deficits Psychiatric: Alert and oriented, normal mood and affect Results Last Vital Signs Temp 36.7 C 06/22/25 08:45 Pulse 58 L 06/22/25 13:01 Resp 28 H 06/22/25 13:01 BP 103/76 06/22/25 13:01 Pulse Ox 93 06/22/25 04:01 Labs 06/22/25 05:47 06/21/25 23:00 Labs: Laboratory Results - last 24 hr 06/21/25 06/21/25 06/21/25 15:52 16:28 17:11 WBC 9.79 RBC 2.58 L Hgb 7.6 L 6.2 L* Hct 24.4 L 19.6 L* MCV 95 MCH 29.5 MCHC 31.1 L RDW 16.5 H Plt Count 300 MPV 9.3 Immature Gran % 0.4 Neutrophils % 66.1 Lymphocytes % 20.5 Monocytes % 12.6 Eosinophils % 0.3 Basophils % 0.1 Nucleated RBC % 0.3 Absolute Neutrophils 6.47 Absolute Lymphocytes 2.01 Absolute Monocytes 1.23 H Absolute Eosinophils 0.03 Absolute Basophils 0.01 RBC Morphology See Below Polychromasia Present Poikilocytosis 1+ Anisocytosis 1+ PT 12.3 H INR 1.2 H APTT 29.0 VBG Lactate 2.8 H* Sodium 137 Potassium 4.2 Chloride 100 Carbon Dioxide 23.7 Anion Gap 13.3 H BUN 35 H Creatinine 1.8 H Est GFR (CKD-EPI 2020) 37.82 Glucose 126 H Calcium 8.6 Magnesium 2.3 Total Bilirubin 0.6 AST 40 H ALT 45 Alkaline Phosphatase 51 Total Protein 7.3 Albumin 3.2 L Lipase 23 Urine Color Urine Clarity Urine pH Ur Specific [place] Urine Protein Urine Ketones Urine Blood Urine Nitrite Urine Bilirubin Urine Urobilinogen Ur Leukocyte Esterase Urine RBC Urine WBC Ur Epithelial Cells Urine Crystals Urine Bacteria Urine Casts Urine Mucus Urine Other Ur Culture Indicated? Urine Glucose ABO/Rh A Positive Blood Type Recheck A Positive Antibody Screen NEGATIVE Crossmatch See Detail 06/21/25 06/21/25 06/22/25 17:56 23:00 05:47 WBC 9.91 9.66 RBC 2.75 L 3.25 L Hgb 7.9 L 9.1 L Hct 25.1 L 28.7 L MCV 91 D 88 MCH 28.7 28.0 MCHC 31.5 L 31.7 L RDW 17.9 H 18.6 H Plt Count 237 224 MPV 9.1 9.1 Immature Gran % Neutrophils % Lymphocytes % Monocytes % Eosinophils % Basophils % Nucleated RBC % Absolute Neutrophils Absolute Lymphocytes Absolute Monocytes Absolute Eosinophils Absolute Basophils RBC Morphology Polychromasia Poikilocytosis Anisocytosis PT INR APTT VBG Lactate 0.8 Sodium 137 Potassium 4.4 Chloride 105 Carbon Dioxide 23.8 Anion Gap 8.2 BUN 30 H Creatinine 1.5 H Est GFR (CKD-EPI 2020) 47.06 Glucose 98 Calcium 7.8 L Magnesium Total Bilirubin 1.1 H AST 23 ALT 32 Alkaline Phosphatase 43 L Total Protein 5.7 L Albumin 2.5 L Lipase Urine Color Yellow Urine Clarity Clear Urine pH 6.5 Ur Specific [place] 1.010 Urine Protein 30 H Urine Ketones Negative Urine Blood Trace-intact H Urine Nitrite Negative Urine Bilirubin Negative Urine Urobilinogen 1.0 H Ur Leukocyte Esterase Negative Urine RBC 0-2 Urine WBC 0-2 Ur Epithelial Cells Rare Urine Crystals Negative Urine Bacteria Rare Urine Casts 0-2 Hyaline Urine Mucus Trace Urine Other Rare Transitional Ur Culture Indicated? No Urine Glucose Negative ABO/Rh Blood Type Recheck Antibody Screen Crossmatch
--- NOTE | 2025-06-22 13:58 | PHA.REVIEW2 ---
Pharmacy Admission Review Admission Clinical Review Admission Pharmacy Review: Aortic mural thrombus (Acute) DVT prophylaxis (Acute) Tobacco abuse (Acute) Cardiomyopathy (Acute) codeine Adverse Reaction (Intermediate, Verified 06/14/25 12:00) Headache ezetimibe (From Zetia) Adverse Reaction (Intermediate, Verified 06/14/25 12:00) myalgia Resuscitation Status Full Code Height 5 ft 8 in Weight 63.3 kg Pharmacy Admission Review Renal Dosing Renal Dosing: BUN 30 mg/dL (7-18) H 06/21/25 23:00 Creatinine 1.5 mg/dL (0.70-1.30) H 06/21/25 23:00 Medications needing adjustments: Reviewed (CrCl 35 mL/min) List of meds needing interventions: Current medications are okay Anticoagulation Anticoagulation: Hgb 9.1 g/dL (13.5-17.5) L 7.9 g/dL (13.5-17.5) L 6.2 g/dL (13.5-17.5) L* 06/22/25 05:47 06/21/25 23:00 06/21/25 17:11 Hct 28.7 % (40.0-50.0) L 06/22/25 05:47 Plt Count 224 10^3/uL (130-400) 06/22/25 05:47 INR 1.2 (0.9-1.1) H 06/21/25 15:52 Creatinine 1.5 mg/dL (0.70-1.30) H 06/21/25 23:00 DVT Prophylaxis: Reviewed (SCDs/TEDs - GI bleed/anemia) Relevant Labs Relevant Labs: Sodium 137 mmol/L (136-145) 06/21/25 23:00 Potassium 4.4 mmol/L (3.5-5.1) 06/21/25 23:00 Chloride 105 mmol/L (98-107) 06/21/25 23:00 Magnesium 2.3 mg/dL (1.8-2.4) 06/21/25 15:52 Electrolytes, C-Reactive P, ESR: Reviewed (No new labs for today) Cardiac Review Cardiac Review: Blood Pressure 103/76 1301 Blood Pressure 121/90 1231 Blood Pressure 115/60 1202 Blood Pressure 117/54 1131 Blood Pressure 101/50 1101 Blood Pressure 103/48 1031 Blood Pressure 120/53 1001 Blood Pressure 111/48 0901 Blood Pressure 105/51 0817 Blood Pressure 106/51 0800 Blood Pressure 99/58 0701 BP, HR, EF%: Reviewed (HR 58 and RR 28) List meds needing interventions: Has order for metoprolol XL 50mg daily QTc Review QTc: Reviewed (477 from 06/21/25) IV to PO Switch IV Medications: Reviewed (pantoprazole) Home Meds Home Med List reviewed: Reviewed Relevent Home Meds Not ordered & why?: Eliquis (on hold per H+P), aspirin (on hold per H+P) and losartan (low BP) If patients BP improves/becomes elevated, speak to provider about resuming losartan Current Meds Current Medication Order Review: Intervened Comments: Changed pantoprazole timing to be on even hour per pharmacy protocol Added IV access order
[2025-06-22] MEDS: Finasteride 5 MG TAB PO (21:00)
[2025-06-22] MEDS: Tamsulosin 0.4 MG CAPCR PO (21:00)
[2025-06-22] MEDS: Rosuvastatin 20 MG TAB 40 MG PO (21:00)
[2025-06-22] MEDS: Zolpidem 5 MG TAB PO (23:40)
[2025-06-23] VITALS (12 sets, daily range): BP systolic 95–133; BP diastolic 52–65; PULSE 54–83; RESP 15–30; TEMP 36.9; O2SAT 93–94
[2025-06-23] MEDS: DEXTROSE 5%-LACTATED RINGERS 1,000 ML 120 ML IV (00:10)
[2025-06-23 07:58] LABS: HCT 33.1 % (40.0-50.0); HGB 10.6 g/dL (13.5-17.5); MCH 28.3 pg (27.0-33.0); MCHC 32.0 % (32.0-36.0); MCV 88 fL (80-95); MPV 9.5 fL (8.0-11.0); Platelet Count 216 10^3/uL (130-400); RBC 3.75 10^6/uL (4.36-5.78); RDW 18.8 % (11.8-14.1); RDW-SD 59.8 fL; WBC 11.00 10^3/uL (4.4-10.8)
[2025-06-23] MEDS: Metoprolol CR 50 MG TABCR PO (08:30)
[2025-06-23] MEDS: Normal Saline Flush 10 ML SYR IVP (08:30)
[2025-06-23] MEDS: Pantoprazole 40 MG VIAL IVP (08:30)
--- NOTE | 2025-06-23 08:34 | DSE_ITS ---
Date of service: 06/23/25 Time of Service: 08:34 DS: Diagnosis Discharge Diagnosis (1) GI bleeding: Status: Chronic (2) Cardiomyopathy: Status: Acute (3) Atrial fibrillation and flutter: Discharge Plan Disposition Patient Disposition: Home Condition: Good Discharge Details Reason For Visit: GI Bleed, CURT, Anemia Admit Date/Time: 06/21/25 19:45 Admit Provider: Rodriguez Estrada Attending Provider: Rodriguez Estrada Primary Care Provider: [facility] Hospital Course Hospital Course: Patient initially presented with dark stools that was likely secondary to an upper GI bleed. Hemoglobin was 6.0 patient received 2 units of packed red blood cells with significant improvement of his hemoglobin up to 10.6 on the day of discharge. Given the patient is high risk for procedures, decision was made not to go forward with upper endoscopy at this time. Additionally, patient's Eliquis was held during hospitalization and will be recommended for him to restart it on the morning of 06/24/2025. The patient is no longer bleeding and hemoglobin has improved and is not, the patient was stable for discharge home. Home Meds and New Rx's Prescriptions: New pantoprazole [Protonix] 40 mg tablet,delayed release (DR/EC) 40 mg PO BID Qty: 90 0RF metoprolol succinate 50 mg Tablet Extended Release 24 Hr 25 mg PO DAILY Qty: 0 0RF Continued zolpidem [Ambien] 5 mg tablet 5 mg PO QHS PRN (Reason: sleep) Qty: 30 5RF albuterol sulfate 90 mcg/actuation HFA aerosol inhaler 2 puff inhalation Q6H PRN (Reason: shortness of breath or wheezing) Qty: 8.5 0RF finasteride [Proscar] 5 mg tablet 5 mg PO HS Qty: 90 3RF losartan 25 mg tablet 25 mg PO DAILY Qty: 90 3RF rosuvastatin [Crestor] 40 mg tablet 40 mg PO DAILY Qty: 90 4RF tamsulosin [Flomax] 0.4 mg capsule 0.4 mg PO QHS Qty: 90 3RF fluticasone propionate 50 mcg/actuation spray,suspension 2 spray intranasal DAILY Qty: 9.9 5RF Patient Comments: states not taking Rx Instructions: administer into each nostril metoprolol succinate 50 mg tablet extended release 24 hr 25 mg PO DAILY Held Eliquis 5 mg tablet 5 mg PO bid Qty: 180 3RF Hold Instructions: Resume on 06/24/25. aspirin 81 mg tablet,delayed release (DR/EC) 81 mg PO DAILY Hold Instructions: Resume on 06/24/25. Discharge Instructions Stand Alone Forms: Portal Information Activity:: Activity as Tolerated Equipment/Supplies:: No Equipment Needed Diet:: As Tolerated Discharge Orders Discharge Orders: Discharge Order (Routine); Ordered 06/23/25 Ordered By: Italo Davis DS: Summary Time Spent with Patient providing and/or coordinating discharge services: Greater than 30 minutes Status at Discharge Functional status at discharge: independent ambulation Overall status at discharge: patient is back to baseline Mental Status: mental status grossly normal Speech and Movement: speech and movement normal Mood: congruent mood Affect: normal affect Exam Narrative Exam Narrative: Elderly appearing gentleman laying in bed in no acute distress, ANO x 4, heart irregularly irregular, lungs clear to auscultation bilaterally, abdomen soft, nontender, nondistended Psych Mental Status: mental status grossly normal Speech and Movement: speech and movement normal Mood: congruent mood Affect: normal affect DS: Data Vitals/I&O Vitals and I&O: Vital Signs Temperature 98.8 F 06/22/25 17:59 Temperature Source Temporal Artery Scan 06/22/25 17:59 Pulse 64 06/23/25 07:19 Pulse 83 06/23/25 07:19 Respiratory Rate 20 06/23/25 07:19 Respiratory Effort Normal 06/21/25 21:12 Respiratory Depth Normal 06/21/25 21:12 Respiratory Pattern Normal 06/21/25 21:12 Blood Pressure 133/65 06/23/25 07:19 Blood Pressure Mean 78 06/23/25 07:19 Pulse Oximetry 94 06/23/25 07:19 Oxygen Delivery Method Room Air 06/22/25 17:59 Oxygen Flow Rate 0 06/22/25 17:59 Pain Level 0 06/22/25 09:01 Intake & Output 06/22/25 06/23/25 06/23/25 17:59 05:59 17:59 Intake Total 1268 / 1268 1000 / 2268 Output Total 1275 / 1275 1200 / 2475 700 / 700 Balance -7 / -7 -200 / -207 -700 / -700 Weight 139 lb 8.842 oz 138 lb 14.259 oz Intake: IV 968 / 968 999 / 1967 Oral 300 / 300 Output: Urine 1275 / 1275 1200 / 2475 700 / 700 Other: Urine Color Yellow Yellow Yellow Urine Appearance Clear Clear Clear Urine Odor Normal Normal None Stool Size Moderate Stool Characteristics Soft Formed Black Data Completed and Pending Pending Labs at Discharge: 06/21/25 06/21/25 06/21/25 15:52 16:28 17:11 WBC 9.79 RBC 2.58 L Hgb 7.6 L 6.2 L* Hct 24.4 L 19.6 L* MCV 95 MCH 29.5 MCHC 31.1 L RDW 16.5 H Plt Count 300 MPV 9.3 Immature Gran % 0.4 Neutrophils % 66.1 Lymphocytes % 20.5 Monocytes % 12.6 Eosinophils % 0.3 Basophils % 0.1 Nucleated RBC % 0.3 Absolute Neutrophils 6.47 Absolute Lymphocytes 2.01 Absolute Monocytes 1.23 H Absolute Eosinophils 0.03 Absolute Basophils 0.01 RBC Morphology See Below Polychromasia Present Poikilocytosis 1+ Anisocytosis 1+ PT 12.3 H INR 1.2 H APTT 29.0 VBG Lactate 2.8 H* Sodium 137 Potassium 4.2 Chloride 100 Carbon Dioxide 23.7 Anion Gap 13.3 H BUN 35 H Creatinine 1.8 H Est GFR (CKD-EPI 2020) 37.82 Glucose 126 H Calcium 8.6 Magnesium 2.3 Total Bilirubin 0.6 AST 40 H ALT 45 Alkaline Phosphatase 51 Total Protein 7.3 Albumin 3.2 L Lipase 23 Urine Color Urine Clarity Urine pH Ur Specific [place] Urine Protein Urine Ketones Urine Blood Urine Nitrite Urine Bilirubin Urine Urobilinogen Ur Leukocyte Esterase Urine RBC Urine WBC Ur Epithelial Cells Urine Crystals Urine Bacteria Urine Casts Urine Mucus Urine Other Ur Culture Indicated? Urine Glucose ABO/Rh A Positive Blood Type Recheck A Positive Antibody Screen NEGATIVE Crossmatch See Detail 06/21/25 06/21/25 06/22/25 17:56 23:00 05:47 WBC 9.91 9.66 RBC 2.75 L 3.25 L Hgb 7.9 L 9.1 L Hct 25.1 L 28.7 L MCV 91 D 88 MCH 28.7 28.0 MCHC 31.5 L 31.7 L RDW 17.9 H 18.6 H Plt Count 237 224 MPV 9.1 9.1 Immature Gran % Neutrophils % Lymphocytes % Monocytes % Eosinophils % Basophils % Nucleated RBC % Absolute Neutrophils Absolute Lymphocytes Absolute Monocytes Absolute Eosinophils Absolute Basophils RBC Morphology Polychromasia Poikilocytosis Anisocytosis PT INR APTT VBG Lactate 0.8 Sodium 137 Potassium 4.4 Chloride 105 Carbon Dioxide 23.8 Anion Gap 8.2 BUN 30 H Creatinine 1.5 H Est GFR (CKD-EPI 2020) 47.06 Glucose 98 Calcium 7.8 L Magnesium Total Bilirubin 1.1 H AST 23 ALT 32 Alkaline Phosphatase 43 L Total Protein 5.7 L Albumin 2.5 L Lipase Urine Color Yellow Urine Clarity Clear Urine pH 6.5 Ur Specific [place] 1.010 Urine Protein 30 H Urine Ketones Negative Urine Blood Trace-intact H Urine Nitrite Negative Urine Bilirubin Negative Urine Urobilinogen 1.0 H Ur Leukocyte Esterase Negative Urine RBC 0-2 Urine WBC 0-2 Ur Epithelial Cells Rare Urine Crystals Negative Urine Bacteria Rare Urine Casts 0-2 Hyaline Urine Mucus Trace Urine Other Rare Transitional Ur Culture Indicated? No Urine Glucose Negative ABO/Rh Blood Type Recheck Antibody Screen Crossmatch 06/23/25 07:20 WBC 11.00 H RBC 3.75 L Hgb 10.6 L Hct 33.1 L MCV 88 MCH 28.3 MCHC 32.0 RDW 18.8 H Plt Count 216 MPV 9.5 Immature Gran % Neutrophils % Lymphocytes % Monocytes % Eosinophils % Basophils % Nucleated RBC % Absolute Neutrophils Absolute Lymphocytes Absolute Monocytes Absolute Eosinophils Absolute Basophils RBC Morphology Polychromasia Poikilocytosis Anisocytosis PT INR APTT VBG Lactate Sodium Potassium Chloride Carbon Dioxide Anion Gap BUN Creatinine Est GFR (CKD-EPI 2020) Glucose Calcium Magnesium Total Bilirubin AST ALT Alkaline Phosphatase Total Protein Albumin Lipase Urine Color Urine Clarity Urine pH Ur Specific [place] Urine Protein Urine Ketones Urine Blood Urine Nitrite Urine Bilirubin Urine Urobilinogen Ur Leukocyte Esterase Urine RBC Urine WBC Ur Epithelial Cells Urine Crystals Urine Bacteria Urine Casts Urine Mucus Urine Other Ur Culture Indicated? Urine Glucose ABO/Rh Blood Type Recheck Antibody Screen Crossmatch PFSH All Active Problems Aortic mural thrombus (Acute) DVT prophylaxis (Acute) GI bleeding (Chronic) Eczema (Acute) Facial numbness (Acute) Cervical radiculopathy (Acute) Skin lesions, generalized (Acute) buttock Chronic low back pain (Chronic) Excessive gas (Acute) Carpal tunnel syndrome on left (Acute) Dry eyes (Acute) Knee pain, left (Acute) Chronic insomnia (Acute) Rotator cuff arthropathy of left shoulder (Acute) Cold extremities (Acute) Tobacco abuse (Acute) Cardiomyopathy (Acute) Cardiac pacemaker (Acute) at [facility] 05/09/22 for DRUG AND ALCOHOL COUNSELLOR-P; sytem explanted due to MSSA bacteremia(2ndry to wounds); MICRA leadless pacemaker implantation Atypical chest pain (Acute) Bradycardia (Acute) 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 (Acute 07/02/16) S/P coronary artery bypass graft x 3 (Acute 05/28/90) 2004 stent Sinus bradycardia (Acute 06/17/17) Telangiectasia (Acute 04/09/18) Pharyngeal Cough (Acute) Hematuria (Acute) Shoulder pain, right (Acute) Left testicular pain (Acute) Arthritis of right glenohumeral joint (Acute) Biceps tendinitis of right upper extremity (Acute) Right rotator cuff tear (Acute) Depo-Medrol injection: 09/19/2021 Non-cardiac chest pain (Acute) Prostatitis (Acute) Vasomotor rhinitis (Acute) Epistaxis (Acute) NSTEMI (non-ST elevated myocardial infarction) (Acute) Anemia (Chronic) Emphysema lung (Acute) MSSA bacteremia (Acute) Pruritus (Acute) Medical History Atrial fibrillation and flutter Coronary artery disease Essential hypertension BPH associated with nocturia Insomnia Tubular adenoma 11/13/05-[facility] 03/22/10[facility] Systolic heart failure (02/20/17) EF 45% on ECHO from 01/29/17 Coronary atherosclerosis Surgical History Stent placement Repair of inguinal hernia (05/06/08) B/L Circumcision (10/27/97) Extraction of cataract 12/15/13-LEFT Coronary Artery Bypass Gaft (CABG) (08/20/89) 2015 Appendectomy Family History Mother Personal history of malignant neoplasm Father Stroke Sister Personal history of malignant neoplasm Brother No problems noted. Social History (Updated 06/21/25 @ 20:20 by Rodriguez Estrada) Smoking/Tobacco Use Status: Current every day Tobacco Type: cigarettes Smoking packs per day: 1.5 Smoking cigarettes per day: 30.0 and pipe Quit status: has quit before Second Hand Exposure: Yes Counseling given: patient declined Smoking risk assessment performed?: Yes Alcohol Intake: current Alcohol Intake frequency: a few times a month Alcohol type: beer Drug use: Never Substance use type: does not use Household members: spouse Housing: house Communication Needs: Hard of Hearing Do you need help understanding health information?: Rarely Pets and animals: Yes Pets and animals: dog(s) Sexually active: No Do you think of yourself as: straight/heterosexual Current gender identity: male What is your relationship status?: How often do you talk on the phone with friends or family?: three or more times per week How often do you attend roman catholic or quaker services?: decline to answer Do you belong to any clubs or organized social groups?: no Panel score (0-1 are the most socially isolated patients): 2 What type of physical activity do you participate in: weight lifting Duration: 15-30 minutes/day Frequency: 5-6 times per week Richa/Jainism: Yarsanism Special richa needs: No Seatbelt use: always Helmet use: No Drive intox or ride w/intox class b driver: No Do you feel safe at home: Yes Do you feel safe in your relationship?: Yes Additional Social history: Lives with in [place]. Retired. Daughter in [place]. Time Spent with Patient Time Spent with Patient: <45 minutes Time was spent: preparing to see the patient(eg.review tests), obtaining and/or reviewing separately otained hiistory, ordering medications,tests, procedures, referring, communicating with other health animal care supervisor, indepentently interpreting results, counseling the patient and care coordination
[2025-06-23] MEDS: Fluticasone NASAL SPRAY 16 GM BTL NS (08:40)
[2025-06-23] MEDS: FLU Vaccine TS 2025-26 MF59C/PF (65UP) 45 MCG/0.5 ML SYR IM (09:35)
--- NOTE | 2025-06-23 11:51 | PDOC.CMDIS ---
Date of service: 06/23/25 Time of Service: 10:00 LACE Index Scoring Tool Questions: Length of Stay (in days): 2 Was the patient admitted via the E.D.?: Yes Comorbidities: Previous M.I. and Congestive Heart Failure E.D. Visits: 1 Answers: Total Score: 9 Risk of Readmission: Low Risk Care Management Discharge Plan Reason for Hospitalization: UGIB Discharge Plan: Joshua was discharged home this morning with no new home care services. He will f/u with his PCP and continue per his plan of care. Joshua was transported home by his daughter. Patient/Family Education Needs: Review of discharge instructions, activity, limitations, and discuss Ask me 3.
== END 2025-06-23 10:00 | disposition home or self-care (01) | DRG 378 ==
LOC: ER 19:37 → ICU 20:45
PROVIDERS: Admitting Provider Family Medicine; Emergency Provider Physician Assistant; PCP Family Medicine; Responsible Provider Family Medicine; Visit Provider Family Medicine
DX: K92.1 Melena; F17.210 Nicotine dependence, cigarettes, uncomplicated; N40.1 Benign prostatic hyperplasia with lower urinary tract symptoms; R35.1 Nocturia; I48.91 Unspecified atrial fibrillation; I48.92 Unspecified atrial flutter; I74.09 Other arterial embolism and thrombosis of abdominal aorta; D50.0 Iron deficiency anemia secondary to blood loss (chronic); I25.5 Ischemic cardiomyopathy; Z95.0 Presence of cardiac pacemaker; J43.9 Emphysema, unspecified; K59.00 Constipation, unspecified; Z95.1 Presence of aortocoronary bypass graft; Z79.01 Long term (current) use of anticoagulants; G89.29 Other chronic pain; M54.12 Radiculopathy, cervical region; I25.2 Old myocardial infarction; Z95.5 Presence of coronary angioplasty implant and graft; Z86.74 Personal history of sudden cardiac arrest
CPT/HCPCS: 00123; 36415; 36430; 80053; 83690; 85027; 86850; 86900; 86901; 86920; 90653; 93005; 96374; 99222; 99285; 74174; 81003; 81015; 83605; 83735; 85014; 85018; 85025; 85610; 85730; 93010; 99223; 99233; 99239; J2470; J3490; P9016